=== PATIENT | male | born 1990 | race Caucasian/White ===

== ENCOUNTER 2023-02-11 12:47 | Outpatient (OUT) | payer OTHER, SELFPAY ==
[2023-02-11 13:43] LABS: Hemoglobin 12.5 g/dL (14.0-18.0)
--- NOTE | 2023-02-11 13:55 | CT_ITS ---
[address] [address] Patient Name: KYLE ANTONY MRN: [id number] date: 1990 Sex: M Assigned Patient Location: CARD Current Patient Location: CARD Accession/Order Number: [id number] Exam Date: 02/11/2023 14:00 Report Date: 02/11/2023 15:17 At the request of: NAYAN ARORA Procedure: CT chest wo con EXAMINATION: CT chest wo con HISTORY: Alpha 1 anitirypain deficiency E88.01, Mod. asthma J45.40 , COPD COMPARISON: No relevant comparison available. TECHNIQUE: Multi-planar CT images were obtained without and/or with IV contrast as indicated by examination type. Axial, Coronal, and Sagittal images. Dose reduction techniques were achieved by using automated exposure control and/or adjustment of mA and/or kV according to patient size and/or use of iterative reconstruction technique. FINDINGS: LUNGS: No visible pulmonary disease. PLEURA: Left pleural effusion 3.0 cm in thickness. VASCULATURE: No abnormality. OPAL: No mass or adenopathy. MEDIASTINUM: No mass or adenopathy. CARDIAC: No enlargement, pericardial thickening, or significant calcification. AORTA: No aneurysm or dissection. CHEST WALL: No mass or axillary adenopathy. BONES: No bone lesion or fracture. LIMITED ABDOMEN: Nodular liver margin with moderate amount of adjacent free fluid. Enlarged spleen, 818.0 cm, with adjacent free fluid. Limited images of the upper abdomen. OTHER: Negative. IMPRESSION: 1. No pulmonary infiltrates or significant chronic interstitial changes. 2. Large left pleural effusion 3 cm in thickness. 3. Nodular liver, enlarged spleen, and moderate amount of abdominal ascites; nonspecific but suggestive of cirrhosis and portal hypertension. Electronically authenticated by: KYLE LIMA Date: 02/11/2023 15:17
--- NOTE | 2023-02-11 13:55 | RT_ITS ---
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 Findings were considered accurate and reproducible. No bronchodilator was administered due to normal spirometric values. No prior studies available for comparison. Spirometry: -FEV1/FVC: Normal @ 82% -FEV1: Normal @ 92% -FVC: Normal @ 91% Lung volumes by plethysmography: -RV: Normal @ 100% -TLC: Normal @ 97% Diffusion capacity: -DLCO: Normal @ 93% when corrected for Hb 12.5g/dL Flow-volume loop: -Normal variant 'knee shape' Impressions: -Normal PFT. Clinical correlation required. Electronically Signed On 02-12-2023 14:26:25 EDT by Harrison Burch
== END 2023-02-11 12:48 ==
LOC: CARD 12:51
PROVIDERS: PCP Internal Medicine; Visit Provider Internal Medicine
DX: E88.01 Alpha-1-antitrypsin deficiency (principal); J45.40 Moderate persistent asthma, uncomplicated
CPT/HCPCS: 36415; 71250; 85018; 94010; 94726; 94729

== ENCOUNTER 2023-03-21 13:08 | Outpatient (REF) | payer OTHER, SELFPAY ==
[2023-03-21 13:36] LABS: Adenovirus F 40/41 NOT DETECTED (NOT DETECTE); Astrovirus NOT DETECTED (NOT DETECTE); Campylobacter NOT DETECTED (NOT DETECTE); Cryptosporidium NOT DETECTED (NOT DETECTE); Cyclospora cayetanensis NOT DETECTED (NOT DETECTE); Entamoeba histolytica NOT DETECTED (NOT DETECTE); Enteroaggregative E.coli NOT DETECTED (NOT DETECTE); Enteropathogenic E.coli NOT DETECTED (NOT DETECTE); Enterotoxigenic E. coli NOT DETECTED (NOT DETECTE); Giardia lamblia NOT DETECTED (NOT DETECTE); Norovirus GI/GII NOT DETECTED (NOT DETECTE); Plesiomonas shigelloides NOT DETECTED (NOT DETECTE); Rotavirus A NOT DETECTED (NOT DETECTE); Salmonella NOT DETECTED (NOT DETECTE); Sapovirus NOT DETECTED (NOT DETECTE); Shiga-like toxin-producing E.C NOT DETECTED (NOT DETECTE); Shigella/Enteroinvasive E.coli NOT DETECTED (NOT DETECTE); Vibrio NOT DETECTED (NOT DETECTE); Vibrio cholerae NOT DETECTED (NOT DETECTE); Yersinia enterocolitica NOT DETECTED (NOT DETECTE)
== END 2023-03-21 13:09 | disposition home or self-care (01) ==
LOC: LAB 13:08
PROVIDERS: PCP Internal Medicine
DX: R19.7 Diarrhea, unspecified (principal)
CPT/HCPCS: 87507

== ENCOUNTER 2023-03-21 13:10 | Day surgery (SDC) | payer OTHER, MEDICAID, SELFPAY ==
[2023-03-21] VITALS (8 sets, daily range): BP systolic 107–125; BP diastolic 65–77; PULSE 89; O2SAT 95
--- NOTE | 2023-03-21 13:16 | US_ITS ---
[address] [address] Patient Name: KYLE ANTONY MRN: [id number] date: 1990 Sex: M Assigned Patient Location: US Current Patient Location: Accession/Order Number: [id number] Exam Date: 03/21/2023 13:17 Report Date: 03/21/2023 13:46 At the request of: NON-STAFF PHYSICIAN Procedure: US abdomen limited EXAMINATION: US abdomen limited HISTORY: Alpha 1 Antitrypsin Deficiency E88.01 COMPARISON: No relevant comparison available. TECHNIQUE: High resolution sonographic examination of the abdomen was performed. FINDINGS: Large amount of free fluid within all 4 quadrants of the abdomen, largest is within right lower quadrant, 13.7 cm in depth. US/US abdomen limited IMPRESSION: 1. Marked abdominal ascites. Electronically authenticated by: KYLE LIMA Date: 03/21/2023 13:46
--- NOTE | 2023-03-21 13:16 | US_ITS ---
[address] [address] Patient Name: KYLE ANTONY MRN: [id number] date: 1990 Sex: M Assigned Patient Location: LAB Current Patient Location: Accession/Order Number: [id number] Exam Date: 03/21/2023 13:20 Report Date: 03/21/2023 14:59 At the request of: NON-STAFF PHYSICIAN Procedure: US paracentesis abd w/image EXAMINATION: US paracentesis abd w/image HISTORY: Ascities R18.8 COMPARISON: No relevant comparison available. DESCRIPTION: Informed consent was obtained. The patient was prepped and draped in standard sterile fashion. Ultrasound-guided paracentesis was performed in the usual sterile manner using 1% Xylocaine. FINDINGS: SITE: Right lower quadrant NEEDLE: Paracentesis 8 Fr. catheter over 18 gauge needle MEDICATION: 1% buffered Xylocaine for local anesthesia FLUID DESCRIPTION: Clear yellowish fluid. FLUID VOLUME: 7 L COMPLICATIONS: None LABORATORY: Pending OTHER: Negative. US/US paracentesis abd w/image IMPRESSION: 1. Successful diagnostic paracentesis with removal of 7 L of fluid. 2. Pathology results are pending. Electronically authenticated by: KYLE LIMA Date: 03/21/2023 14:59
[2023-03-21] MEDS: LIDOCAINE HCL 10 ML, SODIUM BICARBONATE 1 MEQ INJ (14:00)
--- NOTE | 2023-03-21 15:55 | PC.NURSE ---
[address] . 1449 Drained 7 liters fluid from abdomen. Pt c/o mild abdominal diffuse tenderness for approx 1 month and continues today. Attempt IV start x 3 without success. 1515 IV started in left hand with 22 ga x 1 attempt per D Costa. Started IV albumin.
[2023-03-22 10:13] LABS: Protein, Body Fluid 1.1 g/dL (.)
[2023-03-22 15:09] LABS: Clarity, Serous Slightly hazy (Clear); Color, Serous Yellow (.); Eosinophils, Serous 0 % (Not Estab.); Lining Cells, Serous 29 % (Not Estab.); Lymphocytes, Serous 25 % (Not Estab.); Macrophages, Serous 36 % (Not Estab.); Neut, Serous 10 % (0-24); Nucleated Cells, Serous 416 /mm3 (0-499); RBC, Serous Rare /uL (Not Estab.)
== END 2023-03-21 15:50 | disposition home or self-care (01) ==
LOC: US 13:10
PROVIDERS: Radiology Diagnostic Radiology; PCP Internal Medicine
DX: R18.8 Other ascites (principal); R19.7 Diarrhea, unspecified
CPT/HCPCS: 36415; 49083; 76705; 82042; 84157; 87070; 87507; 88112; 88305; 89050

== ENCOUNTER 2023-04-04 23:13 | Emergency (ER) | payer OTHER, MEDICAID, SELFPAY ==
[2023-04-04 23:21] VITALS: BP 160/94; PULSE 104; RESP 20; TEMP 37.2; O2SAT 93; BMI 51.7
--- NOTE | 2023-04-04 23:46 | PC.NURSE ---
Color pale past. Lips dry.
--- NOTE | 2023-04-04 23:48 | CT_ITS ---
[address] [address] Patient Name: KYLE ANTONY MRN: [id number] date: 1990 Sex: M Assigned Patient Location: ER Current Patient Location: Accession/Order Number: [id number] Exam Date: 04/04/2023 23:59 Report Date: 04/05/2023 01:39 At the request of: CHANTEL DOMINGUEZ Procedure: CT abdomen pelvis w con EXAMINATION: CT abdomen pelvis w con HISTORY: vomiting, pain, constipation COMPARISON: No relevant comparison available. TECHNIQUE: Axial, Coronal, and Sagittal images were obtained without and/or with IV contrast as indicated by examination type. Dose reduction techniques were achieved by using automated exposure control and/or adjustment of mA and/or kV according to patient size and/or use of iterative reconstruction technique. FINDINGS: LUNG BASES: Mild opacities and stranding within posterior lung bases. Small bilateral pleural effusions. LIVER: Small liver with nodular margins suggestive of cirrhosis. Surrounding free fluid. BILIARY: Cholecystectomy. PANCREAS: No lesion, fluid collection, or abnormal duct dilatation. SPLEEN: Enlarged, 17.8 cm, with surrounding free fluid. ADRENALS: No mass or enlargement. KIDNEYS: No mass, obstruction, or calcification. BOWEL/MESENTERY: No visible mass, obstruction, or bowel wall thickening. AORTA/VASCULAR: No aneurysm or dissection. RETROPERITONEUM: No mass or adenopathy. LYMPH NODES: No adenopathy. URINARY BLADDER: No visible focal wall thickening, lesion, or calculus. PELVIC ORGANS: No visible mass. Pelvic organs appropriate for patient age. ABDOMINAL WALL: Marked edema throughout the abdominal wall and flanks. BONES: Nondisplaced fracture of the ninth and 10th ribs bilaterally. OTHER: Large amount of free fluid throughout the abdomen and pelvis. CT/CT abdomen pelvis w con IMPRESSION: 1.Sclerosis and portal hypertension as evidenced by small nodular liver, enlarged spleen, marked abdominal ascites, and marked subcutaneous edema. 2.Acute to early subacute nondisplaced fractures of the ninth and 10th ribs bilaterally. Electronically authenticated by: KYLE LIMA Date: 04/05/2023 01:39
--- NOTE | 2023-04-04 23:49 | PC.NURSE ---
Ascites to abdomen.
[2023-04-04 23:57] LABS: Hematocrit 39.2 % (42.0-54.0); Hemoglobin 13.7 g/dL (14.0-18.0); Mean Corpuscular HGB Conc 34.9 g/dL (29.9-35.2); Mean Corpuscular Hemoglobin 32.9 pg (25.9-34.0); Mean Corpuscular Volume 94.2 fL (80.0-94.0); Mean Platelet Volume 10.5 fL (9.5-13.5); Platelet Count 184 10^3/uL (150-450); Red Blood Count 4.16 10^6/uL (4.70-6.10); Red Cell Distribution Width 16.1 % (11.0-15.0); White Blood Count 14.4 10^3/uL (4.0-11.0)
[2023-04-05 00:11] LABS: Alanine Aminotransferase 51 U/L (16-63); Albumin Globulin Ratio 0.4; Alkaline Phosphatase 141 U/L (46-116); Anion Gap 9.6; Aspartate Amino Transferase 108 U/L (15-37); BUN Creatinine Ratio 9.5; Bilirubin Total 2.6 mg/dL (0.2-1.0); Calcium 7.4 mg/dL (8.5-10.1); Carbon Dioxide 27.3 mmol/L (21.0-32.0); Chloride 97 mmol/L (98-107); Estimated GFR (African America >60 (>=60); Estimated GFR (Non-African Ame >60 (>=60); Globulin 5.4 g/dL; Glucose 125 mg/dL (74-106); Sodium 131 mmol/L (136-145); Total Protein 7.4 g/dL (6.4-8.2); Troponin I High Sensitivity 5.7 pg/mL (4.0-76.1)
[2023-04-05 00:12] LABS: Potassium 2.9 mmol/L (3.5-5.1)
[2023-04-05 00:15] LABS: Atypical Lymphocytes Abs Man 0.3; Eosinophils Absolute Manual 0.72 10^3/uL (0.00-0.70); Lymphocytes Absolute Manual 0.72 10^3/uL (1.20-3.80); Monocytes Absolute Manual 0.57 10^3/uL (0.30-0.80); Segmented Neut Absolute Manual 12.09 10^3/uL (1.4-6.5)
[2023-04-05] MEDS: ONDANSETRON PF 4 MG/2 ML VIAL IV (00:19)
[2023-04-05] MEDS: MORPHINE SULFATE 2 MG/ML SYRINGE 4 MG IV (00:19)
[2023-04-05] MEDS: 0.9 % SODIUM CHLORIDE 1,000 ML 1000 ML IV (00:23)
[2023-04-05 00:56] VITALS: BP 126/70; PULSE 108; RESP 20; O2SAT 88
[2023-04-05] MEDS: POTASSIUM CHLORIDE 10 MEQ IN WATER 100 ML PIGGYBACK IV (01:19)
--- NOTE | 2023-04-05 01:48 | ED.GENADUL1 ---
HPI - General Adult General Chief complaint: Nausea/Vomiting/Diarrhea Stated complaint: SEVERE NAUSEA/STOMACH PAIN Time Seen by Provider: 04/04/23 23:22 Source: patient Mode of arrival: Wheelchair Limitations: no limitations History of Present Illness HPI narrative: 32-year-old male to the emergency department with chief complaint of sudden onset of nausea, vomiting, diarrhea tonight. Patient reports he is feeling as though he is constipated over the last few days. Need to take some over the counter medication for this. Four sitting and have some cramping abdominal pain and experienced sudden nausea and vomiting. Four diarrheal bowel movement before this. Denies any fever, sweats, chills. 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 He follows with gastroenterology at [facility] for this. He reports a history of ascites for which she gets paracentesis every two weeks. He denies any chest pain or shortness of breath. Eating and drinking prior to the episode today. No medications or therapies attempted at home. Currently being treated for Cdiff with oral vancomycin. Related Data Home Medications Medication Instructions Recorded Confirmed atenolol 50 mg tablet 50 mg PO DAILY 03/19/23 04/04/23 brimonidine 1 drp ophthalmic (eye) BID 03/19/23 03/21/23 cetirizine 10 mg capsule (Zyrtec) 10 mg PO DAILY 03/19/23 04/04/23 cholecalciferol (vitamin D3) 25 25 mcg PO DAILY 03/19/23 03/21/23 mcg (1,000 unit) capsule citalopram 20 mg tablet 20 mg PO DAILY 03/19/23 04/04/23 fluticasone 250 mcg-salmeterol 50 1 inh inhalation BID 03/19/23 04/04/23 mcg/dose blistr powdr for inhalation (Advair Diskus) fluticasone propionate 50 2 spray intranasal DAILY 03/19/23 04/04/23 mcg/actuation nasal spray,suspension furosemide 20 mg tablet (Lasix) 20 mg PO DAILY 03/19/23 04/04/23 latanoprostene bunod 0.024 % eye 1 drp ophthalmic (eye) QPM 03/19/23 04/04/23 drops montelukast 10 mg tablet 10 mg PO DAILY 03/19/23 04/04/23 (Singulair) omeprazole 20 mg tablet,delayed 20 mg PO DAILY 03/19/23 04/04/23 release brimonidine 0.2 % eye drops drp ophthalmic (eye) 04/04/23 vancomycin 125 mg capsule 125 mg PO QID 04/04/23 04/04/23 Previous Rx's Medication Instructions Recorded ondansetron 4 mg disintegrating 4 mg PO Q8H PRN nausea and 04/05/23 tablet vomiting 4 days #16 tabs oxycodone 5 mg capsule 5 mg PO Q8H PRN pain 3 days #9 caps 04/05/23 potassium chloride 20 mEq oral 20 meq PO DAILY 5 days #5 ea 04/05/23 packet (Klor-Con) Allergies Allergy/AdvReac Type Severity Reaction Status Date / Time No Known Drug Allergies Allergy Verified 04/04/23 23:20 Review of Systems ROS Status of ROS 10 or more systems reviewed and unremarkable except as noted in history and below [facility] Medical History Surgical History Social History Smoking status: Never smoker Exam Narrative Exam Narrative: VITALS: I have reviewed the triage vital signs. GENERAL: Morbidly obese adult male vomiting. Father at the bedside. NEURO: Alert and oriented. Moves all extremities. Face is symmetric and expressive. EYES: PERRL. No scleral icterus or conjunctival injection. No discharge. HENT: Normocephalic, atraumatic. Hearing is grossly intact. Nares grossly patent and without discharge. Mucous membranes moist. NECK: No JVD. Patient moves neck without restriction. CARDIO: Rhythm regular. Normal rate. No murmur, rub, or gallop. Pulses equal bilaterally in the upper and lower extremity. No lower extremity edema. PULM: Lungs clear to auscultation in all caro. No wheezes, rales, or rhonchi. No conversational dyspnea. No splinting, stridor, or accessory muscle use. GI/: Abdomen is soft and non-tender. Normoactive bowel sounds. EXTREMITIES: Symmetric muscle bulk. No joint swelling. No clubbing, cyanosis, or deformity. SKIN: Warm and dry. Normal turgor. No rash or lesions appreciated. PSYCH: Mood, affect, and interaction is appropriate to the setting. Constitutional Vital Signs, click to edit/add: Last Vital Signs Temp 98.9 F 04/04/23 23:21 Pulse 108 H 04/05/23 00:56 Resp 20 04/05/23 00:56 BP 126/70 04/05/23 00:56 Pulse Ox 88 L 04/05/23 00:56 O2 Del Method Room Air 04/05/23 00:56 Course Vital Signs Vital signs: Vital Signs Temperature 98.9 F 04/04/23 23:21 Pulse Rate 104 H 04/04/23 23:21 Respiratory Rate 04/04/23 23:21 Blood Pressure 160/94 H 04/04/23 23:21 Pulse Oximetry 93 L 04/04/23 23:21 Oxygen Delivery Method Room Air 04/04/23 23:21 Temperature 98.9 F 04/04/23 23:21 Pulse Rate 108 H 04/05/23 00:56 Respiratory Rate 04/05/23 00:56 Blood Pressure 126/70 04/05/23 00:56 Pulse Oximetry 88 L 04/05/23 00:56 Oxygen Delivery Method Room Air 04/05/23 00:56 Medical Decision Making MDM Narrative Medical decision making narrative: MDM Data External documents reviewed: Not applicable My EKG interpretation: Not applicable My CT interpretation: As below My X-ray interpretation: Not applicable My Ultrasound interpretation: Not applicable Decision rules/scores evaluated: Not applicable Discussed with: Not applicable Treatment and Disposition ED Course: 32-year-old male to the emergency department plan of abdominal pain, nausea, vomiting that began suddenly tonight. Tachycardic, otherwise stable vitals. Patient is afebrile. Abdominal examination is benign, No signs of peritonitis. Basic labs, lipase are ordered. We'll obtain a CT scan of his abdomen and pelvis to evaluate for obstruction, acute surgical process. Zofran and fluids are ordered. Patient agrees with this plan. Liver reviewed and noted. He has a mild leukocytosis. He has a mild hyponatremia as well as hypokalemia. Potassium is ordered for acute IV replacement. His lipase is within normal limits effectively ruling out pancreatitis. Some mild elevation of his liver enzymes which appears consistent with his history of cirrhosis. CT scan demonstrates his known cirrhotic liver, abdominal ascites.There is noted acute early subacute nondisplaced fractures of the 9th and 10th ribs bilaterally and the CT imaging. This does not appear to correlate clinically with the patients symptoms. Patient able to tolerate POs. He was placed on oxygen while sleeping in the ED, was easily weaned off when up. Ambulatory pulse-ox normal. Discussed findings with the patient. His vitals are normal. His abdomen remains benign. He is appropriate for discharge. Zofran, Oxycodone, Potassium are prescribed. Return precautions are discussed. All questions answered. Patient was discharged home. Shared decision making: As above Code status: Not addressed during this visit Medical Records Medical records reviewed: Yes I reviewed the patient's medical records Lab Data Lab results reviewed: Yes I reviewed the patient's lab results Labs: Lab Results 04/04/23 Range/Units 23:30 WBC 14.4 H (4.0-11.0) 10^3/uL RBC 4.16 L (4.70-6.10) 10^6/uL Hgb 13.7 L (14.0-18.0) g/dL Hct 39.2 L (42.0-54.0) % MCV 94.2 H (80.0-94.0) fL MCH 32.9 (25.9-34.0) pg MCHC 34.9 (29.9-35.2) g/dL RDW 16.1 H (11.0-15.0) % Plt Count 184 (150-450) 10^3/uL MPV 10.5 (9.5-13.5) fL Seg Neuts % (Manual) 84.0 Lymphocytes % (Manual) 5.0 L (20.5-60.0) % Atypical Lymphs % (Man) 2.0 % Monocytes % (Manual) 4.0 (1.7-12.0) % Eosinophils % (Manual) 5.0 (0.9-7.0) % Basophils % (Manual) 0.0 L (0.2-2.0) % Neutrophils # (Manual) 12.09 H (1.4-6.5) 10^3/uL Lymphocytes # (Manual) 0.72 L (1.20-3.80) 10^3/uL Abs Atypical Lymphs Man 0.3 Monocytes # (Manual) 0.57 (0.30-0.80) 10^3/uL Eosinophils # (Manual) 0.72 H (0.00-0.70) 10^3/uL Basophils # (Manual) 0.00 (0.00-0.10) 10^3/uL Sodium 131 L (136-145) mmol/L Potassium 2.9 L* (3.5-5.1) mmol/L Chloride 97 L (98-107) mmol/L Carbon Dioxide 27.3 (21.0-32.0) mmol/L Anion Gap 9.6 BUN 7.0 (7.0-18.0) mg/dL Creatinine 0.74 (0.70-1.30) mg/dL Est GFR ( Amer) >60 (>=60) Est GFR (Non-Af Amer) >60 (>=60) BUN/Creatinine Ratio 9.5 Glucose 125 H (74-106) mg/dL Calcium 7.4 L (8.5-10.1) mg/dL Total Bilirubin 2.6 H (0.2-1.0) mg/dL AST 108 H (15-37) U/L ALT 51 (16-63) U/L Alkaline Phosphatase 141 H (46-116) U/L Troponin I High Sens 5.7 (4.0-76.1) pg/mL Total Protein 7.4 (6.4-8.2) g/dL Albumin 2.0 L (3.4-5.0) g/dL Globulin 5.4 g/dL Albumin/Globulin Ratio 0.4 Lipase 179.0 (73.0-393.0) U/L Discharge Plan Discharge Chief Complaint: Nausea/Vomiting/Diarrhea Clinical Impression: Fracture of rib, Vomiting, Acute hypokalemia Patient Disposition: Home, Self-Care Time of Disposition Decision: 05:46 Condition: Good Mode of Transportation: Private Vehicle Prescriptions / Home Meds: New ondansetron 4 mg tablet,disintegrating 4 mg PO Q8H PRN (Reason: nausea and vomiting) 4 Days Qty: 16 0RF oxycodone 5 mg capsule 5 mg PO Q8H MDD 3 caps PRN (Reason: pain) 3 Days Qty: 9 0RF potassium chloride [Klor-Con] 20 mEq packet 20 meq PO DAILY 5 Days Qty: 5 0RF No Action brimonidine 0.2 % drops OPHTHALMIC (EYE) vancomycin 125 mg capsule 125 mg PO QID fluticasone propion-salmeterol [Advair Diskus] 250-50 mcg/dose blister with device 1 inh inhalation BID atenolol 50 mg tablet 50 mg PO DAILY brimonidine 1 drp ophthalmic (eye) BID Patient Comments: ou citalopram 20 mg tablet 20 mg PO DAILY fluticasone propionate 50 mcg/actuation spray,suspension 2 spray intranasal DAILY Rx Instructions: administer into each nostril latanoprostene bunod 0.024 % drops 1 drp ophthalmic (eye) QPM Patient Comments: ou omeprazole 20 mg tablet,delayed release (DR/EC) 20 mg PO DAILY cholecalciferol (vitamin D3) 25 mcg (1,000 unit) capsule 25 mcg PO DAILY Zyrtec 10 mg capsule 10 mg PO DAILY montelukast [Singulair] 10 mg tablet 10 mg PO DAILY furosemide [Lasix] 20 mg tablet 20 mg PO DAILY Instructions: Hypokalemia (ED), Acute Nausea and Vomiting (DC), Acute Abdominal Pain (ED) Stand Alone Forms: Portal Instructions Referrals: SHELLY MONTIEL [Primary Care Provider] - 1 week
[2023-04-05] MEDS: OXYCODONE HCL 5 MG TABLET PO (06:00)
== END 2023-04-05 06:19 | disposition home or self-care (01) ==
PROVIDERS: Emergency Provider Student in an Organized Health Care Education/Training Program; PCP Internal Medicine
DX: E87.1 Hypo-osmolality and hyponatremia (principal); R11.10 Vomiting, unspecified; S22.43XA Multiple fractures of ribs, bilateral, initial encounter for closed fracture; E88.01 Alpha-1-antitrypsin deficiency; K74.60 Unspecified cirrhosis of liver; Z79.899 Other long term (current) drug therapy; E66.01 Morbid (severe) obesity due to excess calories; E87.6 Hypokalemia; R18.8 Other ascites; Z68.43 Body mass index [BMI] 50.0-59.9, adult
CPT/HCPCS: 36415; 74177; 80053; 83690; 84484; 85027; 96374; 96375; 99285; Q9967

== ENCOUNTER 2023-04-08 09:05 | Day surgery (SDC) | payer OTHER, MEDICAID, SELFPAY ==
[2023-04-08] VITALS (14 sets, daily range): BP systolic 120–136; BP diastolic 65–90; PULSE 110; O2SAT 91
--- NOTE | 2023-04-08 09:20 | US_ITS ---
[address] [address] Patient Name: KYLE ANTONY MRN: [id number] date: 1990 Sex: M Assigned Patient Location: US Current Patient Location: US Accession/Order Number: [id number] Exam Date: 04/08/2023 09:45 Report Date: 04/08/2023 12:27 At the request of: NON-STAFF PHYSICIAN Procedure: US paracentesis abd w/image EXAMINATION: US paracentesis abd w/image HISTORY: Ascites R18.8 COMPARISON: No relevant comparison available. DESCRIPTION: Informed consent was obtained. The patient was prepped and draped in standard sterile fashion. Ultrasound-guided paracentesis was performed in the usual sterile manner using 1% Xylocaine. FINDINGS: SITE: Left lower quadrant NEEDLE: Paracentesis 8 Fr. catheter over 18 gauge needle MEDICATION: 1% buffered Xylocaine for local anesthesia FLUID DESCRIPTION: Yellowish, clear fluid. FLUID VOLUME: 9.7 L COMPLICATIONS: None. LABORATORY: None; therapeutic. OTHER: Negative. US/US paracentesis abd w/image IMPRESSION: 1. Successful paracentesis with removal of 9.7 L of slightly yellowish fluid. Electronically authenticated by: KYLE LIMA Date: 04/08/2023 12:27
[2023-04-08] MEDS: LIDOCAINE HCL 10 ML, SODIUM BICARBONATE 1 MEQ INJ (10:25)
[2023-04-08] MEDS: ALBUMIN 25% PREMIX VIAL 25 GM/100 ML IV (11:30)
--- NOTE | 2023-04-08 16:21 | PC.NURSE ---
[address] and cloudy allyson fluid noted. 1120 Attempted IV start x 2 without success. Geovanny called to attempt IV. Successful IV 22 ga in right AC x 1 attempt. Started IV Albumin. 1140 Removal of fluid completed for total of 9.7 liters. Pt tolerated well. Paracentesis catheter removed and pressure held to site for 4 minutes. 1145 Pt noted fluid leaking from procedure incision. Pressure applied for 10 minutes without any change in leakage. Pt instructed to lay down on right side. Dressing applied of 2 ABD pads. pt remained this way for 15 minutes. 1215 Assessed incision and it continued to leak. Applied 8 4x4 gauze between skin and ABD to make a pressure dressing. Pt instructed on how to manage this if it continues to leak in d/c instructions. 1220 Pt going up to [place] to visit his mom and instructed to return to department if any furthur problems while in the hospital visiting.
== END 2023-04-08 12:30 | disposition home or self-care (01) ==
PROVIDERS: Radiology Diagnostic Radiology; PCP Internal Medicine
DX: R18.8 Other ascites (principal)
CPT/HCPCS: 49083; P9047

== ENCOUNTER 2023-04-23 08:16 | Day surgery (SDC) | payer OTHER, MEDICAID, SELFPAY ==
[2023-04-23] VITALS (14 sets, daily range): BP systolic 99–109; BP diastolic 49–74; PULSE 89; O2SAT 94; BMI 49.2
--- NOTE | 2023-04-23 08:19 | US_ITS ---
[address] [address] Patient Name: KYLE ANTONY MRN: [id number] date: 1990 Sex: M Assigned Patient Location: Current Patient Location: Accession/Order Number: [id number] Exam Date: 04/23/2023 09:00 Report Date: 04/23/2023 11:50 At the request of: NON-STAFF PHYSICIAN Procedure: US paracentesis abd w/image EXAMINATION: US paracentesis abd w/image HISTORY: Ascities R18.8 COMPARISON: No relevant comparison available. DESCRIPTION: Informed consent was obtained. The patient was prepped and draped in standard sterile fashion. Ultrasound-guided paracentesis was performed in the usual sterile manner using 1% Xylocaine. FINDINGS: SITE: Right lower quadrant NEEDLE: Paracentesis 8 Fr. catheter over 18 gauge needle. First attempt was unsuccessful with no fluid obtained. Second attempt resulted in fluid with subsequent blockage of the catheter. Reinsertion of a new catheter through the second site was successful. MEDICATION: 25 cc 1% buffered lidocaine for local anesthesia FLUID DESCRIPTION: Medium yellow, clear FLUID VOLUME: 11.2 L COMPLICATIONS: None LABORATORY: None OTHER: Negative. US/US paracentesis abd w/image IMPRESSION: Technically successful ultrasound-guided therapeutic abdominal paracentesis Electronically authenticated by: HANS SMITH Date: 04/23/2023 11:50
[2023-04-23] MEDS: ALBUMIN HUMAN 50 GM/200 ML PREMIX IV (10:00)
[2023-04-23] MEDS: LIDOCAINE HCL 20 ML, SODIUM BICARBONATE 2 MEQ INJ (10:00)
--- NOTE | 2023-04-23 11:53 | PC.NURSE ---
[address] with clear allyson fluid noted. 1100 Done draining fluid and waiting for Dr Yuen to arrive to d/c catheter. Total of 11.2 liters removed. 1125 IV d/c after albumin completed.
== END 2023-04-23 11:30 | disposition home or self-care (01) ==
LOC: US 08:16
PROVIDERS: Radiology Diagnostic Radiology; PCP Internal Medicine
DX: R18.8 Other ascites (principal)
CPT/HCPCS: 49083; P9047

== ENCOUNTER 2023-05-01 11:29 | Outpatient (OUT) | payer OTHER, SELFPAY ==
[2023-05-01 12:10] LABS: Basophils Absolute Auto 0.1 10^3/uL (0.0-0.1); Basophils Percent Auto 0.6 % (0.2-2.0); Eosinophils Absolute Auto 0.3 10^3/uL (0.0-0.7); Eosinophils Percent Auto 2.3 % (0.9-7.0); Hematocrit 36.7 % (42.0-54.0); Hemoglobin 12.3 g/dL (14.0-18.0); Immature Granulocytes Abs Auto 0.12 10^3/uL (0.00-0.03); Immature Granulocytes Pct Auto 1.1 % (0.0-0.5); Lymphocytes Absolute Auto 1.9 10^3/uL (1.2-3.8); Lymphocytes Percent Auto 16.8 % (20.5-60.0); Mean Corpuscular HGB Conc 33.5 g/dL (29.9-35.2); Mean Corpuscular Hemoglobin 32.9 pg (25.9-34.0); Mean Corpuscular Volume 98.1 fL (80.0-94.0); Mean Platelet Volume 9.8 fL (9.5-13.5); Monocytes Absolute Auto 1.3 10^3/uL (0.3-0.8); Monocytes Percent Auto 11.6 % (1.7-12.0); Neutrophils Absolute Auto 7.5 10^3/uL (1.4-6.5); Neutrophils Percent Auto 67.6 % (43.0-75.0); Platelet Count 166 10^3/uL (150-450); Red Blood Count 3.74 10^6/uL (4.70-6.10); Red Cell Distribution Width 16.7 % (11.0-15.0); White Blood Count 11.1 10^3/uL (4.0-11.0)
[2023-05-01 12:23] LABS: INR 1.51; Prothrombin Time 15.6 sec (9.0-11.6)
[2023-05-01 12:52] LABS: Alanine Aminotransferase 56 U/L (16-63); Albumin Globulin Ratio 0.4; Albumin Level 1.9 g/dL (3.4-5.0); Alkaline Phosphatase 115 U/L (46-116); Anion Gap 7.1; Aspartate Amino Transferase 104 U/L (15-37); BUN Creatinine Ratio 4.9; Bilirubin Total 2.4 mg/dL (0.2-1.0); Calcium 7.3 mg/dL (8.5-10.1); Carbon Dioxide 29.8 mmol/L (21.0-32.0); Chloride 103 mmol/L (98-107); Estimated GFR (African America >60 (>=60); Estimated GFR (Non-African Ame >60 (>=60); Globulin 5.1 g/dL; Glucose 109 mg/dL (74-106); Potassium 3.9 mmol/L (3.5-5.1); Sodium 136 mmol/L (136-145)
[2023-05-01 14:42] LABS: Bilirubin Direct 1.2 mg/dL (0.0-0.2)
== END 2023-05-01 11:30 | disposition home or self-care (01) ==
LOC: LAB 11:30
PROVIDERS: PCP Internal Medicine
DX: R18.8 Other ascites (principal); K74.69 Other cirrhosis of liver; E88.09 Other disorders of plasma-protein metabolism, not elsewhere classified
CPT/HCPCS: 36415; 80048; 80076; 85025; 85610; 85730

== ENCOUNTER 2023-05-07 08:17 | Day surgery (SDC) | payer OTHER, SELFPAY ==
[2023-05-07] VITALS (10 sets, daily range): BP systolic 102–123; BP diastolic 55–73; PULSE 72; O2SAT 90
--- NOTE | 2023-05-07 08:21 | US_ITS ---
[address] [address] Patient Name: KYLE ANTONY MRN: [id number] date: 1990 Sex: M Assigned Patient Location: Current Patient Location: Accession/Order Number: [id number] Exam Date: 05/07/2023 08:45 Report Date: 05/07/2023 11:28 At the request of: NON-STAFF PHYSICIAN Procedure: US paracentesis abd w/image EXAMINATION: US paracentesis abd w/image HISTORY: Ascites COMPARISON: No relevant comparison available. DESCRIPTION: Informed consent was obtained. The patient was prepped and draped in standard sterile fashion. Ultrasound-guided paracentesis was performed in the usual sterile manner using 1% Xylocaine. FINDINGS: SITE: Left lower quadrant NEEDLE: Paracentesis 8 Fr. catheter over 18 gauge needle MEDICATION: 10 cc 1% buffered cocaine for local anesthesia FLUID DESCRIPTION: Medial mid yellow clear fluid FLUID VOLUME: 6.8 L COMPLICATIONS: None LABORATORY: None OTHER: Negative. US/US paracentesis abd w/image IMPRESSION: Technically successful therapeutic paracentesis Electronically authenticated by: HANS SMITH Date: 05/07/2023 11:28
[2023-05-07] MEDS: LIDOCAINE HCL 10 ML, SODIUM BICARBONATE 1 MEQ INJ (09:35)
[2023-05-07] MEDS: ALBUMIN HUMAN 25 GM/100 ML PREMIX IV (09:55)
--- NOTE | 2023-05-07 11:09 | PC.NURSE ---
[address] and clear yellow fluid noted. Enc pt to discuss with Dr about a surgical port placement for home removal of fluid and BUN elevated on last labs. 1015 Paracentesis catheter ceased to drain for total of 6.8 L removed. Pressure applied for 3 minutes and then vaseline gauze and large tegaderm dressing applied.
== END 2023-05-07 10:40 | disposition home or self-care (01) ==
LOC: US 08:17
PROVIDERS: Radiology Diagnostic Radiology; PCP Internal Medicine
DX: R18.8 Other ascites (principal)
CPT/HCPCS: 49083; P9047

== ENCOUNTER 2023-05-18 16:21 | Emergency (ER) | payer OTHER, SELFPAY ==
[2023-05-18 16:25] VITALS: BP 140/98; PULSE 127; RESP 20; TEMP 37; O2SAT 90; BMI 48.1
--- NOTE | 2023-05-18 16:43 | XR_ITS ---
The [address] [address] Patient Name: KYLE ANTONY MRN: [id number] date: 1990 Sex: M Assigned Patient Location: ER Current Patient Location: ER Accession/Order Number: [id number] Exam Date: 05/18/2023 16:48 Report Date: 05/18/2023 17:11 At the request of: VIVIAN BUSTILLOS Procedure: XR chest 1V EXAMINATION: XR chest 1V HISTORY: Cough COMPARISON: Chest x-rays 04/02/2022, and abdomen and pelvic CT 04/05/2023 TECHNIQUE: Portable chest FINDINGS: IMPRESSION: Poorly evaluated smooth marginated soft tissue density of the right hemithorax which may represent eventration of the hemidiaphragm secondary to patient's known history of ascites. Right-sided volume loss. The left hemithorax is unremarkable. No pneumothorax or pleural effusion. The cardiac, mediastinal and hilar contours are normal. The visualized osseous structures exhibit no gross abnormality. Electronically authenticated by: HANS NELSON Date: 05/18/2023 17:11
--- NOTE | 2023-05-18 16:44 | ED.URI1 ---
HPI - URI/Sore Throat General Chief Complaint: Upper Respiratory Infection Stated Complaint: COUGH Time Seen by Provider: 05/18/23 16:39 Source: patient History of Present Illness HPI Narrative: 33-year-old male presents for cough. He's been coughing up yellow phlegm for about three days. No hemoptysis or fever. He has a history of alpha one antitrypsin deficiency. He has not had fever or vomiting. Related Data Home Medications Medication Instructions Recorded Confirmed atenolol 50 mg tablet 50 mg PO DAILY 03/19/23 05/18/23 brimonidine 1 drp ophthalmic (eye) BID 03/19/23 05/18/23 cetirizine 10 mg capsule (Zyrtec) 10 mg PO DAILY 03/19/23 05/18/23 cholecalciferol (vitamin D3) 25 25 mcg PO DAILY 03/19/23 05/18/23 mcg (1,000 unit) capsule citalopram 20 mg tablet 20 mg PO DAILY 03/19/23 05/18/23 fluticasone 250 mcg-salmeterol 50 1 inh inhalation BID 03/19/23 05/18/23 mcg/dose blistr powdr for inhalation (Advair Diskus) fluticasone propionate 50 2 spray intranasal DAILY 03/19/23 05/18/23 mcg/actuation nasal spray,suspension latanoprostene bunod 0.024 % eye 1 drp ophthalmic (eye) QPM 03/19/23 05/18/23 drops montelukast 10 mg tablet 10 mg PO DAILY 03/19/23 05/18/23 (Singulair) omeprazole 20 mg tablet,delayed 20 mg PO DAILY 03/19/23 05/18/23 release spironolactone 50 mg PO DAILY 04/23/23 05/18/23 bumetanide 1 mg tablet 1 mg PO DAILY 05/18/23 05/18/23 Previous Rx's Medication Instructions Recorded ondansetron 4 mg disintegrating 4 mg PO Q8H PRN nausea and 04/05/23 tablet vomiting 4 days #16 tabs oxycodone 5 mg capsule 5 mg PO Q8H PRN pain 3 days #9 caps 04/05/23 Allergies Allergy/AdvReac Type Severity Reaction Status Date / Time No Known Drug Allergies Allergy Verified 05/18/23 16:31 Review of Systems ROS Narrative A ten point review of systems is negative except as noted above. [facility] Medical History (Updated 05/18/23 @ 18:57 by Sarwat Matthews MD) Surgical History (Updated 05/05/23 @ 09:00 by Steff Ramsey) Social History Smoking status: Never smoker Exam Narrative Exam Narrative: Nurses note and vital signs reviewed and patient is not hypoxic. General: The patient appears well and in no apparent distress. Patient is resting comfortably on cart. Skin: Warm, dry, no pallor noted. There is no rash noted. Head: Normocephalic, atraumatic Eye: Normal conjunctiva, no drainage Ears, Nose, Mouth, and Throat: oral mucosa is moist. Nares patent. Cardiovascular: Regular Rate and Rhythm Respiratory: Patient is in no distress, no accessory muscle use, lungs are clear to auscultation, no wheezing, rales or rhonchi Back: non-tender GI: recent nontender Musculoskeletal: The patient has no evidence of calf tenderness, no pitting edema, symmetrical pulses noted bilaterally Neurological: A&O, normal speech Psychiatric: Cooperative Constitutional Vital Signs, click to edit/add: Last Vital Signs Temp 98.6 F 05/18/23 16:25 Pulse 110 H 05/18/23 17:40 Resp 05/18/23 17:40 BP 140/98 H 05/18/23 16:25 Pulse Ox 90 L 05/18/23 17:40 O2 Del Method Room Air 05/18/23 16:40 Course Vital Signs Vital signs: Vital Signs Temperature 98.6 F 05/18/23 16:25 Pulse Rate 127 H 05/18/23 16:25 Respiratory Rate 20 05/18/23 16:25 Blood Pressure 140/98 H 05/18/23 16:25 Pulse Oximetry 90 L 05/18/23 16:25 Oxygen Delivery Method Room Air 05/18/23 16:25 Temperature 98.6 F 05/18/23 16:25 Pulse Rate 110 H 05/18/23 17:40 Respiratory Rate 20 05/18/23 17:40 Blood Pressure 140/98 H 05/18/23 16:25 Pulse Oximetry 90 L 05/18/23 17:40 Oxygen Delivery Method Room Air 05/18/23 16:40 MDM - URI/Sore Throat MDM Narrative Medical decision making narrative: tests that were ordered and the patient is signed out to Dr. Bryant. Differential Diagnosis Differential diagnosis: Likely viral infection, bronchitis and other (pneumonia, pleural effusion) Lab Data Attestation: I reviewed the patient's lab results. Labs: Lab Results 05/18/23 05/18/23 Range/Units 16:30 17:30 WBC 15.9 H (4.0-11.0) 10^3/uL RBC 3.75 L (4.70-6.10) 10^6/uL Hgb 12.5 L (14.0-18.0) g/dL Hct 36.5 L (42.0-54.0) % MCV 97.3 H (80.0-94.0) fL MCH 33.3 (25.9-34.0) pg MCHC 34.2 (29.9-35.2) g/dL RDW 16.5 H (11.0-15.0) % Plt Count 189 (150-450) 10^3/uL MPV 9.7 (9.5-13.5) fL Neut % (Auto) 70.3 (43.0-75.0) % Lymph % (Auto) 14.4 L (20.5-60.0) % [place] % (Auto) 11.4 (1.7-12.0) % Eos % (Auto) 1.5 (0.9-7.0) % Baso % (Auto) 0.4 (0.2-2.0) % Neut # (Auto) 11.1 H (1.4-6.5) 10^3/uL Lymph # (Auto) 2.3 (1.2-3.8) 10^3/uL [place] # (Auto) 1.8 H (0.3-0.8) 10^3/uL Eos # (Auto) 0.2 (0.0-0.7) 10^3/uL Baso # (Auto) 0.1 (0.0-0.1) 10^3/uL Abs Immat Gran (auto) 0.32 H (0.00-0.03) 10^3/uL Imm/Tot Granulo (auto) 2.0 H (0.0-0.5) % Sodium 129 L (136-145) mmol/L Potassium 3.3 L (3.5-5.1) mmol/L Chloride 95 L (98-107) mmol/L Carbon Dioxide 31.6 (21.0-32.0) mmol/L Anion Gap 5.7 BUN 7.0 (7.0-18.0) mg/dL Creatinine 0.69 L (0.70-1.30) mg/dL Est GFR ( Amer) >60 (>=60) Est GFR (Non-Af Amer) >60 (>=60) BUN/Creatinine Ratio 10.1 Glucose 97 (74-106) mg/dL Calcium 7.5 L (8.5-10.1) mg/dL SARS-CoV-2 (PCR) Negative (NEGATIVE) Discharge Plan Discharge Chief Complaint: Upper Respiratory Infection Clinical Impression: Dyspnea Patient Disposition: Still a Patient Prescriptions / Home Meds: No Action ondansetron 4 mg tablet,disintegrating 4 mg PO Q8H PRN (Reason: nausea and vomiting) 4 Days Qty: 16 0RF oxycodone 5 mg capsule 5 mg PO Q8H MDD 3 caps PRN (Reason: pain) 3 Days Qty: 9 0RF bumetanide 1 mg tablet 1 mg PO DAILY fluticasone propion-salmeterol [Advair Diskus] 250-50 mcg/dose blister with device 1 inh inhalation BID atenolol 50 mg tablet 50 mg PO DAILY Patient Comments: has been holding due to low blood pressure brimonidine 1 drp ophthalmic (eye) BID Patient Comments: ou citalopram 20 mg tablet 20 mg PO DAILY fluticasone propionate 50 mcg/actuation spray,suspension 2 spray intranasal DAILY Rx Instructions: administer into each nostril latanoprostene bunod 0.024 % drops 1 drp ophthalmic (eye) QPM Patient Comments: ou omeprazole 20 mg tablet,delayed release (DR/EC) 20 mg PO DAILY cholecalciferol (vitamin D3) 25 mcg (1,000 unit) capsule 25 mcg PO DAILY Zyrtec 10 mg capsule 10 mg PO DAILY montelukast [Singulair] 10 mg tablet 10 mg PO DAILY spironolactone 50 mg PO DAILY Referrals: SHELLY MONTIEL [Primary Care Provider] - 1 week
[2023-05-18 16:52] LABS: SARS-CoV-2 Ag NEGATIVE (NEGATIVE)
--- NOTE | 2023-05-18 17:19 | CT_ITS ---
The [address] [address] Patient Name: KYLE ANTONY MRN: [id number] date: 1990 Sex: M Assigned Patient Location: ER Current Patient Location: ER Accession/Order Number: [id number] Exam Date: 05/18/2023 17:48 Report Date: 05/18/2023 18:32 At the request of: VIVIAN BUSTILLOS Procedure: CT chest w con EXAMINATION:CT chest w con INDICATION:abnormal chest x-ray COMPARISON:Chest x-ray from the same day. Chest CT dated 02/11/2023. TECHNIQUE:Thin section transaxial slices were acquired through the chest. Coronal and sagittal reconstructed images were reviewed. IV CONTRAST:With FINDINGS: LUNGS: Atelectatic changes are present in the right lung related to a very large pleural effusion. Minimal dependent changes are present in the lingula and left lower lobe. No acute airspace disease is present that would suggest an infectious process. PLEURAL CAVITY: There is a large right pleural effusion. Fluid traverses along the fissures in the right hemithorax. There is a small left pleural effusion. MEDIASTINUM: Trachea and central airways are patent. HEART: The heart is unremarkable. VASCULAR:There is no aneurysm dissection of the thoracic aorta. LYMPH NODES:No suspicious lymphadenopathy. CHEST WALL/AXILLA: There is mild bilateral gynecomastia. BONES: There are subacute/chronic fractures in the left lower lateral ribs. VISUALIZED UPPER ABDOMEN: There is ascites in the upper abdomen and diffuse mesenteric edema. CT/CT chest w con IMPRESSION: 1. Large right pleural effusion with atelectasis of the adjacent right lung. There is also a small left pleural effusion. 2. Ascites in the upper abdomen. Electronically authenticated by: NIKUNJ YA Date: 05/18/2023 18:32
[2023-05-18 17:40] VITALS: PULSE 110; RESP 20; O2SAT 90
[2023-05-18 17:43] LABS: Basophils Absolute Auto 0.1 10^3/uL (0.0-0.1); Basophils Percent Auto 0.4 % (0.2-2.0); Eosinophils Absolute Auto 0.2 10^3/uL (0.0-0.7); Eosinophils Percent Auto 1.5 % (0.9-7.0); Hematocrit 36.5 % (42.0-54.0); Hemoglobin 12.5 g/dL (14.0-18.0); Immature Granulocytes Abs Auto 0.32 10^3/uL (0.00-0.03); Lymphocytes Absolute Auto 2.3 10^3/uL (1.2-3.8); Lymphocytes Percent Auto 14.4 % (20.5-60.0); Mean Corpuscular HGB Conc 34.2 g/dL (29.9-35.2); Mean Corpuscular Hemoglobin 33.3 pg (25.9-34.0); Mean Corpuscular Volume 97.3 fL (80.0-94.0); Mean Platelet Volume 9.7 fL (9.5-13.5); Monocytes Absolute Auto 1.8 10^3/uL (0.3-0.8); Monocytes Percent Auto 11.4 % (1.7-12.0); Neutrophils Absolute Auto 11.1 10^3/uL (1.4-6.5); Neutrophils Percent Auto 70.3 % (43.0-75.0); Platelet Count 189 10^3/uL (150-450); Red Blood Count 3.75 10^6/uL (4.70-6.10); Red Cell Distribution Width 16.5 % (11.0-15.0); White Blood Count 15.9 10^3/uL (4.0-11.0)
[2023-05-18 17:50] LABS: Anion Gap 5.7; BUN Creatinine Ratio 10.1; Calcium 7.5 mg/dL (8.5-10.1); Carbon Dioxide 31.6 mmol/L (21.0-32.0); Chloride 95 mmol/L (98-107); Estimated GFR (African America >60 (>=60); Estimated GFR (Non-African Ame >60 (>=60); Glucose 97 mg/dL (74-106); Potassium 3.3 mmol/L (3.5-5.1); Sodium 129 mmol/L (136-145)
[2023-05-18 19:37] VITALS: BP 130/76; PULSE 119; RESP 18; O2SAT 94
[2023-05-19 16:38] LABS: SARS-CoV-2 NAA NOT DETECTED (NOT DETECTE)
== END 2023-05-18 20:36 | disposition home or self-care (01) ==
PROVIDERS: Emergency Medicine; Emergency Provider Internal Medicine; PCP Internal Medicine
DX: J90 Pleural effusion, not elsewhere classified (principal); E88.01 Alpha-1-antitrypsin deficiency; Z79.899 Other long term (current) drug therapy; Z20.822 Contact with and (suspected) exposure to COVID-19
CPT/HCPCS: 36415; 71045; 71260; 80048; 85025; 87635; 87811; 99285; Q9967; U0003

== ENCOUNTER 2023-05-20 11:05 | Outpatient (RCR) | payer OTHER, SELFPAY ==
[2023-05-20 11:26] VITALS: BP 110/62; PULSE 116; RESP 20; TEMP 37.1; O2SAT 95
--- NOTE | 2023-05-20 12:05 | XR_ITS ---
[address] [address] Patient Name: KYLE ANTONY MRN: [id number] date: 1990 Sex: M Assigned Patient Location: ICU Current Patient Location: ICU Accession/Order Number: [id number] Exam Date: 05/20/2023 12:10 Report Date: 05/20/2023 13:06 At the request of: NAYAN ARORA Procedure: XR chest 1V EXAMINATION: XR chest 1V 05/20/2023 10:04 AM PDT HISTORY: s/p right thoracentesis - 2900mL removed TECHNIQUE: Single frontal view of the chest acquired. COMPARISONS: Chest x-ray 05/18/2023. FINDINGS: Lines/tubes/other: None. Heart and mediastinum: Stable. Bones: No acute osseous abnormality. Lungs: Mild patchy opacification in the medial right base. Pleura: Significantly decreased size of the right pleural effusion. No significant residual pleural effusion. No pneumothorax. Other: None. XR/XR chest 1V IMPRESSION: No pneumothorax status post thoracentesis. Mild patchy opacification of the right base which may represent atelectasis. Electronically authenticated by: OSBALDO JOY Date: 05/20/2023 13:06
--- NOTE | 2023-05-20 12:06 | PC.NURSE ---
1140 Dr Burch present. Time out performed. Site verified via ultrasound. Thorocentesis procedure initiated
--- NOTE | 2023-05-20 12:07 | W.PM.PROCNOT ---
Date of procedure: 05/20/23 Pre-op diagnosis: Large right pleural effusion Post-op diagnosis: same as pre-op Procedure: Procedure: Diagnostic & therapeutic ultrasound-guided right-sided thoracentesis Consent: Informed consent was obtained after risks, benefits, and alternatives were discussed with the patient. Time out was initiated to confirm the correct patient, site, and procedure with all present voicing in the affirmative. Procedure: The patient was placed in the seated position in the hospital bed. Ultrasound was utilized to identify the hemidiaphragm and pleural fluid on the right. Tongue sign was present on ultrasound, indicating a right pleural effusion. An appropriate drainage site was marked via pen, based on anatomical landmarks and the ultrasound findings. Chloraprep was used to cleanse the lower right hemithorax. Sterile drapes were applied. Lidocaine 1% 10mL was injected, first as superficial skin wheal, and then using aspiration technique, advanced over the superior aspect of the lower rib subcutaneously at the periosteum and then parietal pleura. Easy return of allyson colored pleural fluid was aspirated. Next, a small incision was made to the anesthetized area with the blade provided in the prepackaged thoracentesis kit. Hemostasis was achieved. A zyfsrjvm-ecgl-nldryh apparatus was advanced as a unit over the superior aspect of the lower rib into the pleural space with great care to prevent further progression of the needle into the pleural cavity. The needle was then retracted completely and discarded. A vacuum collection system was attached to the catheter and pleural fluid was collected for analysis. A total of 2900mL of pleural fluid was removed. The procedure was terminated due to coughing. The catheter was then removed during an expiratory breath-hold maneuver. The patient tolerated the procedure well. A post-procedural portable chest x-ray was ordered to assess adequacy of pleural fluid drainage and to evaluate for iatrogenic pneumothorax; results are pending at the time of this report. Specimens: -Pleural fluid sent for cytology, chemistries, and culture Surgeon: Harrison Burch Estimated blood loss (mL): 0 Condition: stable Disposition: no change
[2023-05-20 12:23] VITALS: BP 114/66; PULSE 113; RESP 18; O2SAT 97
--- NOTE | 2023-05-20 13:09 | PC.NURSE ---
Dr Burch telephones and gives ok to release patient based on results of chest x ray
[2023-05-21 13:09] LABS: Amylase, Body Fluid 11 U/L (.); Glucose, Body Fluid 111 mg/dL (.); LD, Body Fluid 110 IU/L (.); Protein, Body Fluid 1.2 g/dL (.); Triglycerides, Fluid 18 mg/dL (Not Estab.)
[2023-05-21 14:09] LABS: Clarity, Serous Hazy (Clear); Color, Serous Straw (.); Eosinophils, Serous 0 % (Not Estab.); Lymphocytes, Serous 30 % (Not Estab.); Macrophages, Serous 65 % (Not Estab.); Neut, Serous 5 % (0-24); Nucleated Cells, Serous 740 /mm3 (0-499); RBC, Serous 3000 /uL (Not Estab.)
[2023-05-22 17:07] LABS: pH, Body Fluid 7.4 (Not Estab.)
== END 2023-05-24 23:59 | disposition home or self-care (01) ==
LOC: INF 11:05
PROVIDERS: PCP Internal Medicine; Visit Provider Internal Medicine
DX: J90 Pleural effusion, not elsewhere classified (principal)
CPT/HCPCS: 32555; 36415; 71045; 82150; 82945; 83615; 83986; 84157; 84478; 87070; 87205; 89050; 89051; C1887

== ENCOUNTER 2023-05-21 07:52 | Day surgery (SDC) | payer OTHER, SELFPAY ==
--- NOTE | 2023-05-21 07:54 | US_ITS ---
[address] [address] Patient Name: KYLE ANTONY MRN: [id number] date: 1990 Sex: M Assigned Patient Location: Current Patient Location: Accession/Order Number: [id number] Exam Date: 05/21/2023 08:00 Report Date: 05/21/2023 11:00 At the request of: NON-STAFF PHYSICIAN Procedure: US paracentesis abd w/image EXAMINATION: US paracentesis abd w/image HISTORY: [place]ities COMPARISON: No relevant comparison available. DESCRIPTION: Informed consent was obtained. The patient was prepped and draped in standard sterile fashion. Ultrasound-guided paracentesis was performed in the usual sterile manner using 1% Xylocaine. FINDINGS: SITE: Right lower quadrant NEEDLE: Paracentesis 8 Fr. catheter over 18 gauge needle MEDICATION: 16 cc 1% buffered lidocaine for local anesthesia FLUID DESCRIPTION: Clear, medial mid yellow FLUID VOLUME: 1.5 L COMPLICATIONS: None LABORATORY: None OTHER: The first catheter stopped draining after 50 cc likely related to collapse due to the deep position. A second catheter flowed normally. Difficulty in placing the catheter into the intraperitoneal space due to very thick abdominal wall related to subcutaneous edema measuring up to 20 cm US/US paracentesis abd w/image IMPRESSION: Technically successful paracentesis Electronically authenticated by: HANS SMITH Date: 05/21/2023 11:00
[2023-05-21 08:15] VITALS: BP 103/59; PULSE 86; O2SAT 95
[2023-05-21] MEDS: LIDOCAINE HCL 10 ML, SODIUM BICARBONATE 1 MEQ INJ (08:30)
[2023-05-21 08:40] VITALS: BP 104/50
[2023-05-21 08:50] VITALS: BP 97/53
[2023-05-21 09:00] VITALS: BP 100/55
[2023-05-21 09:10] VITALS: BP 103/57
[2023-05-21 09:20] VITALS: BP 105/51
--- NOTE | 2023-05-21 09:59 | SUR.HOLD ---
0800 22 ga IV started in right AC X1 attempt. [address] with clear allyson fluid noted. Very slow stream noted and catheter adjusted and bottle changed with no improvement in stream. 914 fluid stream ceased and catheter readjusted. Pt c/o pain near catheter site and wishes to have it removed. Pt to see liver specialist tomorrow and will ask him about getting a drain placed that he can do himself at home. IV d/c.
== END 2023-05-21 09:35 | disposition home or self-care (01) ==
LOC: US 07:52
PROVIDERS: Radiology Diagnostic Radiology; PCP Internal Medicine
DX: R18.8 Other ascites (principal)
CPT/HCPCS: 49083; 88112; 88305; 88341; 88342

== ENCOUNTER 2023-05-27 10:51 | Emergency (ER) | payer OTHER, SELFPAY ==
[2023-05-27] VITALS (26 sets, daily range): BP systolic 83–126; BP diastolic 36–97; PULSE 109–113; RESP 18–23; TEMP 37.3; O2SAT 91–98; BMI 48.7
--- NOTE | 2023-05-27 11:20 | ECG_ITS ---
The [facility] Test Date: 2023-05-27 Pat Name: KYLE ANTONY Department: Room: - Gender: Male Client Success Specialist: : 1990 Requested By: FATUMA CRAWLEY Order Number: [id number] Reading MD: FATUMA CRAWLEY Measurements Intervals [place] Rate: 87 P: 172 [place]: 196 QRS: -6 QRSD: 90 T: 221 QT: 314 QTc: 359 Interpretive Statements 1220 Rapid atrial rhythm 1570 with occasional ventricular premature complexes 3114 Cannot rule out anterior myocardial infarction, age undetermined 4564 Twave abnormality, possible lateral ischemia 4664 Twave abnormality, possible inferior ischemia 8102 Low QRS voltage in chest leads 8305 Short QTc interval 9150 abnormal ECG No previous ECG available for comparison Electronically Signed On 05-28-2023 7:34:35 EDT by FATUMA CRAWLEY
--- NOTE | 2023-05-27 11:21 | XR_ITS ---
The [address] [address] Patient Name: KYLE ANTONY MRN: [id number] date: 1990 Sex: M Assigned Patient Location: ER Current Patient Location: ER Accession/Order Number: [id number] Exam Date: 05/27/2023 11:44 Report Date: 05/27/2023 12:03 At the request of: VIVIAN BUSTILLOS Procedure: XR chest 1V PROCEDURE: XR chest 1V DATE: 05/27/2023 10:44 AM CDT COMPARISONS: Chest x-ray from 05/20/2023. CT chest 05/18/2023 CLINICAL INDICATION: 33 years Male cough, recent thoracentesis FINDINGS: Heart and mediastinum remain stable. Difficult to well assessed the heart and mediastinum because of what appears to be a large right pleural effusion. The left lung field is clear. There may be small left pleural effusion but no definite left pleural effusion identified. There is no evidence of pneumothorax. There is opacification of the lower two thirds of the right lung probably by pleural effusion and associated atelectasis. This presumed right-sided effusion has increased in size since 05/20/2023. XR/XR chest 1V IMPRESSION: Findings most consistent with large right pleural effusion. This has increased since 05/20/2023. Electronically authenticated by: FREIDA CHENG Date: 05/27/2023 12:03
--- NOTE | 2023-05-27 11:22 | ED_ITS ---
HPI - General Adult General Chief complaint: Weakness Stated complaint: GENERAL WEAKNESS Time Seen by Provider: 05/27/23 11:16 Source: patient Mode of arrival: Wheelchair Limitations: no limitations History of Present Illness HPI narrative: 33-year-old male presents for weakness and cough. He's had a cough for three or four days and he doesn't have a fever and it's nonproductive. He had a recent thoracentesis on the right side. He had paracentesis last week as well. He has a history of liver issues because of alpha-1 antitrypsin deficiency. no vomiting. Related Data Home Medications Medication Instructions Recorded Confirmed atenolol 50 mg tablet 50 mg PO DAILY 03/19/23 05/21/23 brimonidine 1 drp ophthalmic (eye) BID 03/19/23 05/21/23 cetirizine 10 mg capsule (Zyrtec) 10 mg PO DAILY 03/19/23 05/21/23 cholecalciferol (vitamin D3) 25 25 mcg PO DAILY 03/19/23 05/21/23 mcg (1,000 unit) capsule citalopram 20 mg tablet 20 mg PO DAILY 03/19/23 05/21/23 fluticasone 250 mcg-salmeterol 50 1 inh inhalation BID 03/19/23 05/21/23 mcg/dose blistr powdr for inhalation (Advair Diskus) fluticasone propionate 50 2 spray intranasal DAILY 03/19/23 05/21/23 mcg/actuation nasal spray,suspension latanoprostene bunod 0.024 % eye 1 drp ophthalmic (eye) QPM 03/19/23 05/21/23 drops montelukast 10 mg tablet 10 mg PO DAILY 03/19/23 05/21/23 (Singulair) omeprazole 20 mg tablet,delayed 20 mg PO DAILY 03/19/23 05/21/23 release spironolactone 50 mg PO DAILY 04/23/23 05/21/23 bumetanide 1 mg tablet 2 mg PO DAILY 05/18/23 05/21/23 Vitamin B 1 tab PO DAILY 05/21/23 05/21/23 ferrous sulfate 325 mg (65 mg 325 mg PO DAILY 05/21/23 05/21/23 iron) tablet (iron) Previous Rx's Medication Instructions Recorded ondansetron 4 mg disintegrating 4 mg PO Q8H PRN nausea and 04/05/23 tablet vomiting 4 days #16 tabs oxycodone 5 mg capsule 5 mg PO Q8H PRN pain 3 days #9 caps 04/05/23 Allergies Allergy/AdvReac Type Severity Reaction Status Date / Time No Known Drug Allergies Allergy Verified 05/21/23 08:51 PFSH PFSH Medical History Pbvtg-8-fcbxduzrtlm deficiency ?E88.01 - Idzul-9-btwwxqiyfdk deficiency (ICD-10) Ascites ?R18.8 - Other ascites (ICD-10) COPD (chronic obstructive pulmonary disease) ?J44.9 - Chronic obstructive pulmonary disease, unspecified (ICD-10) Gastroenteritis ?K52.9 - Noninfective gastroenteritis and colitis, unspecified (ICD-10) GERD (gastroesophageal reflux disease) ?K21.9 - Gastro-esophageal reflux disease without esophagitis (ICD-10) Glaucoma ?H40.9 - Unspecified glaucoma (ICD-10) HTN (hypertension) ?I10 - Essential (primary) hypertension (ICD-10) Surgical History History of abdominal paracentesis ?Z98.890 - Other specified postprocedural states (ICD-10) History of cholecystectomy ?Z90.49 - Acquired absence of other specified parts of digestive tract (ICD- 10) History of liver biopsy ?Z98.890 - Other specified postprocedural states (ICD-10) S/P thoracentesis ?Z98.890 - Other specified postprocedural states (ICD-10) Social History Smoking status: Never smoker Exam Narrative Exam Narrative: Nurses note and vital signs reviewed and patient is not hypoxic. General: The patient appears well and in no apparent distress. Patient is resting comfortably on cart. Skin: Warm, dry, no pallor noted. There is no rash noted. Head: Normocephalic, atraumatic Eye: Normal conjunctiva, no drainage Ears, Nose, Mouth, and Throat: oral mucosa is moist. Nares patent. Cardiovascular: Regular Rate and Rhythm Respiratory: Patient is in no distress, no accessory muscle use, breath sounds seem mildly diminished on his right. Back: non-tender GI: distended, fluid wave present Musculoskeletal: The patient has no evidence of calf tenderness, no pitting edema, symmetrical pulses noted bilaterally Neurological: A&O, normal speech Psychiatric: Cooperative Constitutional Vital Signs, click to edit/add: Last Vital Signs Temp 99.1 F 05/27/23 11:03 Pulse 109 H 05/27/23 11:50 Resp 23 05/27/23 11:50 BP 97/46 L 05/27/23 15:30 Pulse Ox 96 05/27/23 15:30 O2 Del Method Room Air 05/27/23 11:03 Course Vital Signs Vital signs: Vital Signs Temperature 99.1 F 05/27/23 11:03 Pulse Rate 113 H 05/27/23 11:03 Respiratory Rate 18 05/27/23 11:03 Blood Pressure 119/97 H 05/27/23 11:03 Pulse Oximetry 93 L 05/27/23 11:03 Oxygen Delivery Method Room Air 05/27/23 11:03 Temperature 99.1 F 05/27/23 11:03 Pulse Rate 109 H 05/27/23 11:50 Respiratory Rate 23 05/27/23 11:50 Blood Pressure 97/46 L 05/27/23 15:30 Pulse Oximetry 96 05/27/23 15:30 Oxygen Delivery Method Room Air 05/27/23 11:03 Medical Decision Making MDM Narrative Medical decision making narrative: the patient has been seen by his realtime reporter here and had thoracentesis performed with removal of 4 L. His O2 sat is much improved and he seems to be asymptomatic from an acute standpoint. We have made attempts to talk to the transplant team in [place] but have been unsuccessful. The patient will be discharged home with instructions to follow-up with his team. There is no indication for admission to the hospital or transfer to [place]. Findings are discussed thoroughly with the patient. Differential Diagnosis Differential Diagnosis: effusion, pneumonia Lab Data Lab results reviewed: Yes I reviewed the patient's lab results Labs: Lab Results 05/27/23 Range/Units 11:40 WBC 15.4 H (4.0-11.0) 10^3/uL RBC 3.60 L (4.70-6.10) 10^6/uL Hgb 12.3 L (14.0-18.0) g/dL Hct 35.1 L (42.0-54.0) % MCV 97.5 H (80.0-94.0) fL MCH 34.2 H (25.9-34.0) pg MCHC 35.0 (29.9-35.2) g/dL RDW 16.4 H (11.0-15.0) % Plt Count 160 (150-450) 10^3/uL MPV 9.9 (9.5-13.5) fL Neut % (Auto) 73.3 (43.0-75.0) % Lymph % (Auto) 13.3 L (20.5-60.0) % [place] % (Auto) 11.2 (1.7-12.0) % Eos % (Auto) 0.7 L (0.9-7.0) % Baso % (Auto) 0.5 (0.2-2.0) % Neut # (Auto) 11.3 H (1.4-6.5) 10^3/uL Lymph # (Auto) 2.0 (1.2-3.8) 10^3/uL [place] # (Auto) 1.7 H (0.3-0.8) 10^3/uL Eos # (Auto) 0.1 (0.0-0.7) 10^3/uL Baso # (Auto) 0.1 (0.0-0.1) 10^3/uL Abs Immat Gran (auto) 0.15 H (0.00-0.03) 10^3/uL Imm/Tot Granulo (auto) 1.0 H (0.0-0.5) % Sodium 126 L (136-145) mmol/L Potassium 3.0 L (3.5-5.1) mmol/L Chloride 91 L (98-107) mmol/L Carbon Dioxide 31.0 (21.0-32.0) mmol/L Anion Gap 7.0 BUN 9.0 (7.0-18.0) mg/dL Creatinine 0.69 L (0.70-1.30) mg/dL Est GFR ( Amer) >60 (>=60) Est GFR (Non-Af Amer) >60 (>=60) BUN/Creatinine Ratio 13.0 Glucose 114 H (74-106) mg/dL Calcium 7.5 L (8.5-10.1) mg/dL Total Bilirubin 5.0 H (0.2-1.0) mg/dL Direct Bilirubin 1.8 H* (0.0-0.2) mg/dL AST 94 H (15-37) U/L ALT 51 (16-63) U/L Alkaline Phosphatase 131 H (46-116) U/L Total Protein 6.8 (6.4-8.2) g/dL Albumin 1.8 L (3.4-5.0) g/dL Globulin 5.0 g/dL Albumin/Globulin Ratio 0.4 Imaging Data two chest x-rays: Radiologist's impression: Procedure: XR chest 1V PROCEDURE: XR chest 1V DATE: 05/27/2023 10:44 AM CDT COMPARISONS: Chest x-ray from 05/20/2023. CT chest 05/18/2023 CLINICAL INDICATION: 33 years Male cough, recent thoracentesis FINDINGS: Heart and mediastinum remain stable. Difficult to well assessed the heart and mediastinum because of what appears to be a large right pleural effusion. The left lung field is clear. There may be small left pleural effusion but no definite left pleural effusion identified. There is no evidence of pneumothorax. There is opacification of the lower two thirds of the right lung probably by pleural effusion and associated atelectasis. This presumed right-sided effusion has increased in size since 05/20/2023. IMPRESSION: Findings most consistent with large right pleural effusion. This has increased since 05/20/2023. Electronically authenticated by: FREIDA CHENG Date: 05/27/2023 12:03 PROCEDURE: XR chest 1V DATE: 05/27/2023 2:25 PM CDT COMPARISONS: The present exam is done at 1325 on 05/27/2023 and is compared to previous exam done at 1144 same day CLINICAL INDICATION: 33 years Male postthoracentesis FINDINGS: The cardiomediastinal silhouette and pulmonary vasculature are within normal limits. The right pleural effusion has resolved in the interval consistent with interval thoracentesis. There is no evidence of left pleural effusion. There is no evidence of pneumothorax. IMPRESSION: Resolution of what appeared to be a large right pleural effusion noted on an exam from approximately 2 hours earlier. No evidence of pneumothorax. Electronically authenticated by: FREIDA CHENG Date: 05/27/2023 13:59 Discharge Plan Discharge Chief Complaint: Weakness Clinical Impression: Pleural effusion Patient Disposition: Home, Self-Care Time of Disposition Decision: 16:13 Condition: Good Mode of Transportation: Private Vehicle Prescriptions / Home Meds: No Action ondansetron 4 mg tablet,disintegrating 4 mg PO Q8H PRN (Reason: nausea and vomiting) 4 Days Qty: 16 0RF oxycodone 5 mg capsule 5 mg PO Q8H MDD 3 caps PRN (Reason: pain) 3 Days Qty: 9 0RF bumetanide 1 mg tablet 2 mg PO DAILY Vitamin B 1 tab PO DAILY ferrous sulfate [iron] 325 mg (65 mg iron) tablet 325 mg PO DAILY fluticasone propion-salmeterol [Advair Diskus] 250-50 mcg/dose blister with device 1 inh inhalation BID atenolol 50 mg tablet 50 mg PO DAILY Patient Comments: has been holding due to low blood pressure brimonidine 1 drp ophthalmic (eye) BID Patient Comments: ou citalopram 20 mg tablet 20 mg PO DAILY fluticasone propionate 50 mcg/actuation spray,suspension 2 spray intranasal DAILY Rx Instructions: administer into each nostril latanoprostene bunod 0.024 % drops 1 drp ophthalmic (eye) QPM Patient Comments: ou omeprazole 20 mg tablet,delayed release (DR/EC) 20 mg PO DAILY cholecalciferol (vitamin D3) 25 mcg (1,000 unit) capsule 25 mcg PO DAILY Zyrtec 10 mg capsule 10 mg PO DAILY montelukast [Singulair] 10 mg tablet 10 mg PO DAILY spironolactone 50 mg PO DAILY Instructions: Pleural Effusion (DC), Thoracentesis (DC) Additional Instructions: Follow-up with your transplant team Stand Alone Forms: Portal Instructions Referrals: Cecil Hernandez MD [Primary Care Provider] - 1 week
[2023-05-27 11:50] LABS: Basophils Absolute Auto 0.1 10^3/uL (0.0-0.1); Basophils Percent Auto 0.5 % (0.2-2.0); Eosinophils Absolute Auto 0.1 10^3/uL (0.0-0.7); Eosinophils Percent Auto 0.7 % (0.9-7.0); Hematocrit 35.1 % (42.0-54.0); Hemoglobin 12.3 g/dL (14.0-18.0); Immature Granulocytes Abs Auto 0.15 10^3/uL (0.00-0.03); Lymphocytes Percent Auto 13.3 % (20.5-60.0); Mean Corpuscular Hemoglobin 34.2 pg (25.9-34.0); Mean Corpuscular Volume 97.5 fL (80.0-94.0); Mean Platelet Volume 9.9 fL (9.5-13.5); Monocytes Absolute Auto 1.7 10^3/uL (0.3-0.8); Monocytes Percent Auto 11.2 % (1.7-12.0); Neutrophils Absolute Auto 11.3 10^3/uL (1.4-6.5); Neutrophils Percent Auto 73.3 % (43.0-75.0); Platelet Count 160 10^3/uL (150-450); Red Cell Distribution Width 16.4 % (11.0-15.0); White Blood Count 15.4 10^3/uL (4.0-11.0)
[2023-05-27 11:56] LABS: Calcium 7.5 mg/dL (8.5-10.1); Chloride 91 mmol/L (98-107); Estimated GFR (African America >60 (>=60); Estimated GFR (Non-African Ame >60 (>=60); Glucose 114 mg/dL (74-106); Sodium 126 mmol/L (136-145)
[2023-05-27 12:05] LABS: Alanine Aminotransferase 51 U/L (16-63); Albumin Globulin Ratio 0.4; Albumin Level 1.8 g/dL (3.4-5.0); Alkaline Phosphatase 131 U/L (46-116); Aspartate Amino Transferase 94 U/L (15-37); Total Protein 6.8 g/dL (6.4-8.2)
[2023-05-27 12:07] LABS: Bilirubin Direct 1.8 mg/dL (0.0-0.2)
--- NOTE | 2023-05-27 13:20 | XR_ITS ---
The [address] [address] Patient Name: KYLE ANTONY MRN: [id number] date: 1990 Sex: M Assigned Patient Location: ER Current Patient Location: ER Accession/Order Number: [id number] Exam Date: 05/27/2023 15:25 Report Date: 05/27/2023 13:59 At the request of: VIVIAN BUSTILLOS Procedure: XR chest 1V PROCEDURE: XR chest 1V DATE: 05/27/2023 2:25 PM CDT COMPARISONS: The present exam is done at 1325 on 05/27/2023 and is compared to previous exam done at 1144 same day CLINICAL INDICATION: 33 years Male postthoracentesis FINDINGS: The cardiomediastinal silhouette and pulmonary vasculature are within normal limits. The right pleural effusion has resolved in the interval consistent with interval thoracentesis. There is no evidence of left pleural effusion. There is no evidence of pneumothorax. XR/XR chest 1V IMPRESSION: Resolution of what appeared to be a large right pleural effusion noted on an exam from approximately 2 hours earlier. No evidence of pneumothorax. Electronically authenticated by: FREIDA CHENG Date: 05/27/2023 13:59
--- NOTE | 2023-05-27 15:38 | W.PM.PROCNOT ---
Date of procedure: 05/27/23 Pre-op diagnosis: Very large recurrent right pleural effusion Post-op diagnosis: same as pre-op Procedure: Procedure: Therapeutic ultrasound-guided right-sided thoracentesis, performed in the ER urgently History: Patient had right thoracentesis of 2900mL removed on 05/20/2023. Fluid has rapidly reaccumulated in just a week and appears even larger now than last time. Consent: Informed consent was obtained after risks, benefits, and alternatives were discussed with the patient. Time out was initiated to confirm the correct patient, site, and procedure with all present voicing in the affirmative. Procedure: The patient was placed in the seated position in the hospital bed in the ER. Ultrasound was utilized to identify the hemidiaphragm and pleural fluid on the right. Ultrasound confirmed a very large effusion. The previous thoracentesis incision remained in a proper window for insertion of the catheter; this was used as the marker for an appropriate drainage site. Chloraprep was used to cleanse the lower right hemithorax. Sterile drapes were applied. Lidocaine 1% 10mL was injected, first as superficial skin wheal, and then using aspiration technique, advanced over the superior aspect of the lower rib subcutaneously at the periosteum and then parietal pleura. Easy return of allyson colored pleural fluid was aspirated. Next, a small incision was made to the anesthetized area with the blade provided in the prepackaged thoracentesis kit. Hemostasis was achieved. A xahdhffp-pegg-kpkumz apparatus was advanced as a unit over the superior aspect of the lower rib into the pleural space with great care to prevent further progression of the needle into the pleural cavity. The needle was then retracted completely and discarded. A vacuum collection system was attached to the catheter and pleural fluid was collected for analysis. A total of 4000mL of pleural fluid was removed. The procedure was terminated due to concern regarding further fluid and potential for complications. The catheter was then removed during an expiratory breath-hold maneuver. The patient tolerated the procedure well. Ultrasound revealed reduction in pleural fluid, but there was a mild amount of remnant fluid. A post-procedural portable chest x-ray was ordered to assess adequacy of pleural fluid drainage and to evaluate for iatrogenic pneumothorax; chest x-ray revealed marked reduction of the pleural effusion without a post-procedural pneumothorax. Specimens: -Prior specimens from 05/20/2023 were consistent with hepatic hydrothorax. Decision was made that further fluid analysis was unnecessary in this case. Surgeon: Harrison Burch Estimated blood loss (mL): 0 Condition: stable
--- NOTE | 2023-05-27 15:46 | PM.PLCN ---
History of Present Illness History of Present Illness Consult date: 05/27/23 Requesting physician: Sarwat Matthews Reason for consult: pleural effusion Chief complaint: GENERAL WEAKNESS Narrative: 33yo male, very well known to me, presented to [facility] ER with weakness and dyspnea. CXR revealed a very large right pleural effusion. 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 Due to the size of the effusion and the patient's dyspnea, the ER contacted me. I saw the patient in the ER room. He appeared weak and dyspneic. Repeated thoracenteses are generally not recommended in cases such as this, but as he was visibly dyspneic, I discussed a repeat thoracentesis with him. He voiced agreement and 4000mL were removed, with more pleural fluid remaining when I screened his chest with a post-procedural ultrasound! His SpO2 improved from ~91% to 96% after the thoracentesis with voiced improvement in dyspnea. He was scheduled to F/U with me tomorrow (05/28/2023) regarding the 05/20/2023 thoracentesis. Review of Systems ROS Status of ROS 10 or more systems reviewed and unremarkable except as noted in history and below (Main complaint is dyspnea, weakness with difficulty ambulating) [facility] Medical History Ectrx-5-rnqjlwnlycu deficiency ?E88.01 - Zotty-4-jgpuhxeqlmf deficiency (ICD-10) Ascites ?R18.8 - Other ascites (ICD-10) COPD (chronic obstructive pulmonary disease) ?J44.9 - Chronic obstructive pulmonary disease, unspecified (ICD-10) Gastroenteritis ?K52.9 - Noninfective gastroenteritis and colitis, unspecified (ICD-10) GERD (gastroesophageal reflux disease) ?K21.9 - Gastro-esophageal reflux disease without esophagitis (ICD-10) Glaucoma ?H40.9 - Unspecified glaucoma (ICD-10) HTN (hypertension) ?I10 - Essential (primary) hypertension (ICD-10) Surgical History History of abdominal paracentesis ?Z98.890 - Other specified postprocedural states (ICD-10) History of cholecystectomy ?Z90.49 - Acquired absence of other specified parts of digestive tract (ICD-10) History of liver biopsy ?Z98.890 - Other specified postprocedural states (ICD-10) S/P thoracentesis ?Z98.890 - Other specified postprocedural states (ICD-10) Social History Smoking status: Never smoker Meds Home Medications and Allergies Home Medications Medication Instructions Recorded Confirmed Type atenolol 50 mg tablet 50 mg PO DAILY 03/19/23 05/21/23 History brimonidine 1 drp ophthalmic (eye) BID 03/19/23 05/21/23 History cetirizine 10 mg capsule (Zyrtec) 10 mg PO DAILY 03/19/23 05/21/23 History cholecalciferol (vitamin D3) 25 25 mcg PO DAILY 03/19/23 05/21/23 History mcg (1,000 unit) capsule citalopram 20 mg tablet 20 mg PO DAILY 03/19/23 05/21/23 History fluticasone 250 mcg-salmeterol 50 1 inh inhalation BID 03/19/23 05/21/23 History mcg/dose blistr powdr for inhalation (Advair Diskus) fluticasone propionate 50 2 spray intranasal DAILY 03/19/23 05/21/23 History mcg/actuation nasal spray,suspension latanoprostene bunod 0.024 % eye 1 drp ophthalmic (eye) QPM 03/19/23 05/21/23 History drops montelukast 10 mg tablet 10 mg PO DAILY 03/19/23 05/21/23 History (Singulair) omeprazole 20 mg tablet,delayed 20 mg PO DAILY 03/19/23 05/21/23 History release ondansetron 4 mg disintegrating 4 mg PO Q8H PRN nausea and 04/05/23 05/21/23 Rx tablet vomiting 4 days #16 tabs oxycodone 5 mg capsule 5 mg PO Q8H PRN pain 3 days #9 caps 08/12/23 09/27/23 Rx spironolactone 50 mg PO DAILY 04/23/23 05/21/23 History bumetanide 1 mg tablet 2 mg PO DAILY 05/18/23 05/21/23 History Vitamin B 1 tab PO DAILY 05/21/23 05/21/23 History ferrous sulfate 325 mg (65 mg 325 mg PO DAILY 05/21/23 05/21/23 History iron) tablet (iron) Allergies Allergy/AdvReac Type Severity Reaction Status Date / Time No Known Drug Allergies Allergy Verified 05/21/23 08:51 Exam Constitutional Vital Signs, click to edit/add: Last Vital Signs Temp 99.1 F 05/27/23 11:03 Pulse 109 H 05/27/23 11:50 Resp 23 05/27/23 11:50 BP 97/46 L 05/27/23 15:30 Pulse Ox 96 05/27/23 15:30 O2 Del Method Room Air 05/27/23 11:03 Documenting provider has reviewed patient's vital signs: yes Common normals: negative for healthy appearing General appearance: not comfortable Nutritional appearance: obese morbidly obese Chest Common normals: inspection of chest normal Respiratory Auscultation: breath sounds absent on the right and diminished lung sounds on the left Cardio Rate: regular rate Rhythm: regular rhythm GI Inspection: central obesity and striae Extremity Other: Mild jaundice Neuro Sensorium/orientation: awake and alert Psych Attitude: calm Results Laboratory Findings Abnormal lab findings: Abnormal Labs 05/27/23 11:40 WBC 15.4 H RBC 3.60 L Hgb 12.3 L Hct 35.1 L MCV 97.5 H MCH 34.2 H RDW 16.4 H Lymph % (Auto) 13.3 L Eos % (Auto) 0.7 L Neut # (Auto) 11.3 H [place] # (Auto) 1.7 H Abs Immat Gran (auto) 0.15 H Imm/Tot Granulo (auto) 1.0 H Sodium 126 L Potassium 3.0 L Chloride 91 L Creatinine 0.69 L Glucose 114 H Calcium 7.5 L Total Bilirubin 5.0 H Direct Bilirubin 1.8 H* AST 94 H Alkaline Phosphatase 131 H Albumin 1.8 L Diagnostic Findings Chest x-ray: report reviewed and image reviewed Additional studies: Very large pleural effusion on bedside ultrasound prior to thoracentesis Assessment and Plan Assessment and Plan (1) Pleural effusion on right: Assessment and Plan: 1. 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 Patient just had 2900mL evacuated on 05/20/2023 and 1 week later, there was reaccumulation of >4000mL of fluid! Patient appeared acutely ill and visibly dyspneic. He is better now; however, this is going to return as the underlying problem (hepatic cirrhosis) has yet to be resolved (i.e. liver transplant). For now, he will hopefully have several days of improved breathing. 2. Hepatic cirrhosis secondary to alpha 1-antitrypsin deficiency (genotype ZZ). AAT augmentation therapy will NOT treat ZZ genotype. I spoke with a [facility] cash grain grower/home lending officer, Dr. Wood, about the case. She voiced agreement that repeated thoracenteses are not ideal, but we needed to treat the patient accordingly. He has had a rapid decline since January, when I first saw him. He is in the initial stages of w/up, such as dermatology, dental, etc. referrals. With his rapid decompensation, he may be moved up on the transplant list. If he continues to decompensate and returns to the ER, she suggested transfer to [facility]. 3. Alpha 1-antitrypsin deficiency, ZZ genotype. I worked up the patient in January, for any pulmonary involvement. PFT and CT were unremarkable for any emphysema. 4. Morbid obesity with BMI 48.7. Inducing a restrictive pulmonary physiology. He has lost some weight since his initial visit 01/23/2023 which he was 341 pounds - he is currently 330 pounds. Healthy weight loss encouraged, but with his medical issues, that may be a problem, especially with protein.
== END 2023-05-27 16:30 | disposition home or self-care (01) ==
PROVIDERS: Emergency Provider Emergency Medicine; PCP Family Medicine
DX: J90 Pleural effusion, not elsewhere classified (principal); E88.01 Alpha-1-antitrypsin deficiency; K76.9 Liver disease, unspecified; Z79.899 Other long term (current) drug therapy; J44.9 Chronic obstructive pulmonary disease, unspecified; K21.9 Gastro-esophageal reflux disease without esophagitis; H40.9 Unspecified glaucoma; I10 Essential (primary) hypertension; Z90.49 Acquired absence of other specified parts of digestive tract; Z98.890 Other specified postprocedural states
CPT/HCPCS: 36415; 71045; 80048; 80076; 85025; 93005; 99285

== ENCOUNTER 2023-05-28 12:23 | Day surgery (SDC) | payer OTHER, SELFPAY ==
--- NOTE | 2023-05-28 | US_ITS ---
[address] [address] Patient Name: KYLE ANTONY MRN: [id number] date: 1990 Sex: M Assigned Patient Location: [facility] Current Patient Location: Accession/Order Number: [id number] Exam Date: 05/28/2023 12:30 Report Date: 05/28/2023 15:35 At the request of: NON-STAFF PHYSICIAN Procedure: US paracentesis abd w/image EXAMINATION: US paracentesis abd w/image HISTORY: R18.8 COMPARISON: No relevant comparison available. DESCRIPTION: Informed consent was obtained. The patient was prepped and draped in standard sterile fashion. Ultrasound-guided paracentesis was performed in the usual sterile manner using 1% Xylocaine. FINDINGS: SITE: Left lower quadrant NEEDLE: Paracentesis 8 Fr. catheter over 18 gauge needle MEDICATION: 20 cc 1% buffered Lidocaine for local anesthesia FLUID DESCRIPTION: Medium yellow, clear FLUID VOLUME: 7 liters COMPLICATIONS: None LABORATORY: None OTHER: The patient was given 25 g of albumin following the procedure. US/US paracentesis abd w/image IMPRESSION: Technically successful therapeutic paracentesis Electronically authenticated by: HANS SMITH Date: 05/28/2023 15:35
[2023-05-28] MEDS: ALBUMIN HUMAN 50 GM/200 ML PREMIX IV (15:04)
--- NOTE | 2023-05-28 15:46 | PC.NURSE ---
Patient in at 1300 u/s performed and Dr. Yuen notified of fluid accumulation. Patient educated on paracentesis. Patient states he has had procedure before and has no questions. Consent obtained. 13:50 #22 gauge i.v. start x2 attempts to right a/c. 1355 Dr. Yuen in and further educates patient on procedure. 1402:timeout performed with Dr. Yuen, Angleia Marquez, and this nurse (Lio Mariscal RN) present. bp 115/63. [address] Yuen. Patient tolerates with minimal c/o. 1415 109/56, HR93. 1425: BP 111/59, HR76. Patient tolerating procedure without c/o. 1435 BP: 118/60, no changes in patient's status. 1445: no change bP remains stable at 107/50. 1451: procedure complete. Patient without c/o. bP stable at 112/57. Dr. Yuen d/c paracentesis catheter intact, vaseline gauze covered by 4x4 covered by opsite. 7,100cc drained from paracentesis procedure. 1510: 25gm of Albumin administered. I.V. d/c cath. intact. 1516 BP lying 119/59, sitting at bedside 111/58. Patient denies syncope or weak feeling. 1530: Patient d/c ambulatory without c/o.
== END 2023-05-28 12:24 | disposition home or self-care (01) ==
LOC: US 05-29 11:35
PROVIDERS: PCP Family Medicine
DX: R18.8 Other ascites (principal)
CPT/HCPCS: 49083; P9047

== ENCOUNTER 2023-05-29 06:52 | Inpatient (IN) | payer OTHER, SELFPAY ==
[2023-05-29] VITALS (41 sets, daily range): BP systolic 75–121; BP diastolic 34–62; PULSE 99–112; RESP 9–26; TEMP 36.6–36.9; O2SAT 90–100; BMI 43.6; BMI 43.7
--- NOTE | 2023-05-29 07:19 | ECG_ITS ---
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
[2023-05-29 07:25] LABS: Basophils Absolute Auto 0.1 10^3/uL (0.0-0.1); Basophils Percent Auto 0.6 % (0.2-2.0); Eosinophils Absolute Auto 0.1 10^3/uL (0.0-0.7); Hematocrit 33.6 % (42.0-54.0); Hemoglobin 11.6 g/dL (14.0-18.0); Immature Granulocytes Abs Auto 0.12 10^3/uL (0.00-0.03); Lymphocytes Absolute Auto 1.9 10^3/uL (1.2-3.8); Lymphocytes Percent Auto 14.7 % (20.5-60.0); Mean Corpuscular HGB Conc 34.5 g/dL (29.9-35.2); Mean Corpuscular Hemoglobin 33.9 pg (25.9-34.0); Mean Corpuscular Volume 98.2 fL (80.0-94.0); Mean Platelet Volume 10.4 fL (9.5-13.5); Monocytes Absolute Auto 1.4 10^3/uL (0.3-0.8); Monocytes Percent Auto 11.3 % (1.7-12.0); Neutrophils Percent Auto 71.4 % (43.0-75.0); Platelet Count 144 10^3/uL (150-450); Red Blood Count 3.42 10^6/uL (4.70-6.10); Red Cell Distribution Width 16.6 % (11.0-15.0); White Blood Count 12.6 10^3/uL (4.0-11.0)
--- NOTE | 2023-05-29 07:31 | ED_ITS ---
HPI - General Adult General Chief complaint: Chest Pain Stated complaint: chest pain Time Seen by Provider: 05/29/23 07:09 Source: patient and family Mode of arrival: Wheelchair Limitations: other Limitations comment: autistic, high functioning History of Present Illness HPI narrative: 33-year-old male presents for fatigue. He has a history of alpha-1 antitrypsin deficiency and had thoracentesis two days ago and paracentesis yesterday. He is starting to feel like the fluid is reaccumulating and mother would like him transferred up to the [facility] where his transplant doctor is. He has not had a fever. Mother states that he's been somewhat confused. Related Data Home Medications Medication Instructions Recorded Confirmed atenolol 50 mg tablet 50 mg PO DAILY 03/19/23 05/21/23 brimonidine 1 drp ophthalmic (eye) BID 03/19/23 05/21/23 cetirizine 10 mg capsule (Zyrtec) 10 mg PO DAILY 03/19/23 05/21/23 cholecalciferol (vitamin D3) 25 25 mcg PO DAILY 03/19/23 05/21/23 mcg (1,000 unit) capsule citalopram 20 mg tablet 20 mg PO DAILY 03/19/23 05/21/23 fluticasone 250 mcg-salmeterol 50 1 inh inhalation BID 03/19/23 05/21/23 mcg/dose blistr powdr for inhalation (Advair Diskus) fluticasone propionate 50 2 spray intranasal DAILY 03/19/23 05/21/23 mcg/actuation nasal spray,suspension latanoprostene bunod 0.024 % eye 1 drp ophthalmic (eye) QPM 03/19/23 05/21/23 drops montelukast 10 mg tablet 10 mg PO DAILY 03/19/23 05/21/23 (Singulair) omeprazole 20 mg tablet,delayed 20 mg PO DAILY 03/19/23 05/21/23 release spironolactone 50 mg PO DAILY 04/23/23 05/21/23 bumetanide 1 mg tablet 2 mg PO DAILY 05/18/23 05/21/23 Vitamin B 1 tab PO DAILY 05/21/23 05/21/23 ferrous sulfate 325 mg (65 mg 325 mg PO DAILY 05/21/23 05/21/23 iron) tablet (iron) Previous Rx's Medication Instructions Recorded ondansetron 4 mg disintegrating 4 mg PO Q8H PRN nausea and 04/05/23 tablet vomiting 4 days #16 tabs oxycodone 5 mg capsule 5 mg PO Q8H PRN pain 3 days #9 caps 04/05/23 Allergies Allergy/AdvReac Type Severity Reaction Status Date / Time No Known Drug Allergies Allergy Verified 05/29/23 06:57 Review of Systems ROS Narrative A ten point review of systems is negative except as noted above. PFSH PFSH Medical History Oeuic-9-hqbyvtyxuut deficiency ?E88.01 - Kdxsj-3-ddjrwvmjgey deficiency (ICD-10) Ascites ?R18.8 - Other ascites (ICD-10) COPD (chronic obstructive pulmonary disease) ?J44.9 - Chronic obstructive pulmonary disease, unspecified (ICD-10) Gastroenteritis ?K52.9 - Noninfective gastroenteritis and colitis, unspecified (ICD-10) GERD (gastroesophageal reflux disease) ?K21.9 - Gastro-esophageal reflux disease without esophagitis (ICD-10) Glaucoma ?H40.9 - Unspecified glaucoma (ICD-10) HTN (hypertension) ?I10 - Essential (primary) hypertension (ICD-10) Surgical History History of abdominal paracentesis ?Z98.890 - Other specified postprocedural states (ICD-10) History of cholecystectomy ?Z90.49 - Acquired absence of other specified parts of digestive tract (ICD- 10) History of liver biopsy ?Z98.890 - Other specified postprocedural states (ICD-10) S/P thoracentesis ?Z98.890 - Other specified postprocedural states (ICD-10) Social History Smoking status: Never smoker Exam Narrative Exam Narrative: Nurses note and vital signs reviewed and patient is not hypoxic. General: The patient appears in no apparent distress. he appears uncomfortable Skin: Warm, dry, no pallor noted. There is no rash noted. Head: Normocephalic, atraumatic Eye: Normal conjunctiva, no drainage Ears, Nose, Mouth, and Throat: oral mucosa is moist. Nares patent. Cardiovascular: Regular Rate and Rhythm, borderline tachycardic Respiratory: the patient appears minimally dyspneic. Breath sounds are equal Back: non-tender GI: nondistended Musculoskeletal: The patient has no evidence of calf tenderness, no pitting edema, symmetrical pulses noted bilaterally Neurological: A&O, normal speech Psychiatric: Cooperative Constitutional Vital Signs, click to edit/add: Last Vital Signs Temp 97.8 F 05/29/23 06:57 Pulse 100 H 05/29/23 09:40 Resp 13 05/29/23 09:35 BP 90/38 L 05/29/23 09:49 Pulse Ox 99 05/29/23 08:50 O2 Del Method Room Air 05/29/23 06:57 Course Vital Signs Vital signs: Vital Signs Temperature 97.8 F 05/29/23 06:57 Pulse Rate 108 H 05/29/23 06:57 Respiratory Rate 24 05/29/23 06:57 Blood Pressure 113/59 05/29/23 06:57 Pulse Oximetry 98 05/29/23 06:57 Oxygen Delivery Method Room Air 05/29/23 06:57 Temperature 97.8 F 05/29/23 06:57 Pulse Rate 100 H 05/29/23 09:40 Respiratory Rate 13 05/29/23 09:35 Blood Pressure 90/38 L 05/29/23 09:49 Pulse Oximetry 99 05/29/23 08:50 Oxygen Delivery Method Room Air 05/29/23 06:57 Medical Decision Making MDM Narrative Medical decision making narrative: his workup shows elevated ammonia level. Mother states that he's been quite weak and mildly confused. He'll be admitted for further treatment. I've spoken to both Dr. Harris and Dr Shell at the [facility]. the patient has been accepted there by Dr Shell but they report it will be a few days before they have a bed available. He'll be admitted here in the meantime for treatment of elevated ammonia further stabilization. Findings are discussed with the patient and his mother. Differential Diagnosis Differential Diagnosis: pleural effusion, hyperammonemia, pneumonia, dehydration, liver failure Medical Records Medical records reviewed: Yes I reviewed the patient's medical records Lab Data Lab results reviewed: Yes I reviewed the patient's lab results Labs: Lab Results 05/29/23 05/29/23 05/29/23 Range/Units 07:08 07:24 08:46 WBC 12.6 H (4.0-11.0) 10^3/uL RBC 3.42 L (4.70-6.10) 10^6/uL Hgb 11.6 L (14.0-18.0) g/dL Hct 33.6 L (42.0-54.0) % MCV 98.2 H (80.0-94.0) fL MCH 33.9 (25.9-34.0) pg MCHC 34.5 (29.9-35.2) g/dL RDW 16.6 H (11.0-15.0) % Plt Count 144 L (150-450) 10^3/uL MPV 10.4 (9.5-13.5) fL Neut % (Auto) 71.4 (43.0-75.0) % Lymph % (Auto) 14.7 L (20.5-60.0) % Mckean % (Auto) 11.3 (1.7-12.0) % Eos % (Auto) 1.0 (0.9-7.0) % Baso % (Auto) 0.6 (0.2-2.0) % Neut # (Auto) 9.0 H (1.4-6.5) 10^3/uL Lymph # (Auto) 1.9 (1.2-3.8) 10^3/uL Mckean # (Auto) 1.4 H (0.3-0.8) 10^3/uL Eos # (Auto) 0.1 (0.0-0.7) 10^3/uL Baso # (Auto) 0.1 (0.0-0.1) 10^3/uL Abs Immat Gran (auto) 0.12 H (0.00-0.03) 10^3/uL Imm/Tot Granulo (auto) 1.0 H (0.0-0.5) % Sodium 129 L (136-145) mmol/L Potassium 3.2 L (3.5-5.1) mmol/L Chloride 94 L (98-107) mmol/L Carbon Dioxide 29.0 (21.0-32.0) mmol/L Anion Gap 9.2 BUN 9.0 (7.0-18.0) mg/dL Creatinine 0.73 (0.70-1.30) mg/dL Est GFR ( Amer) >60 (>=60) Est GFR (Non-Af Amer) >60 (>=60) BUN/Creatinine Ratio 12.3 Glucose 112 H (74-106) mg/dL Calcium 7.7 L (8.5-10.1) mg/dL Total Bilirubin 3.1 H (0.2-1.0) mg/dL Direct Bilirubin 1.3 H* (0.0-0.2) mg/dL AST 90 H (15-37) U/L ALT 49 (16-63) U/L Alkaline Phosphatase 115 (46-116) U/L Ammonia 184 H* (11-32) umol/L Troponin I High Sens 7.5 (4.0-76.1) pg/mL Total Protein 6.2 L (6.4-8.2) g/dL Albumin 1.7 L (3.4-5.0) g/dL Globulin 4.5 g/dL Albumin/Globulin Ratio 0.4 Amylase 29 (25-115) U/L Lipase 77.0 (16.0-77.0) U/L SARS-CoV-2 (PCR) Negative (NEGATIVE) Imaging Data Chest x-ray: Radiologist's impression: Procedure: XR chest 1V PROCEDURE: XR chest 1V DATE: 05/29/2023 6:28 AM CDT COMPARISONS: 05/27/2023. CLINICAL INDICATION: 33 years Male SOB FINDINGS: The cardiomediastinal silhouette and pulmonary vasculature are within normal limits. Exam is limited somewhat by lordotic radiographic technique and less than optimal inspiratory radiograph. The diaphragms are elevated, right greater than left. There are findings consistent with some perihilar and infrahilar atelectasis, stable. There is no evidence of pleural effusion or pneumothorax. IMPRESSION: Limited portable radiograph. The present exam shows no definite evidence of pleural effusion. The previous exam showed resolution of the large right pleural effusion. It is possible that there is some residual right pleural effusion not well identified on this lordotic limited radiograph. Overall, the present limited portable lordotic radiograph appears similar to previous exam done 2 days earlier. Electronically authenticated by: FREIDA CHENG Date: 05/29/2023 07:53 Discharge Plan Discharge Chief Complaint: Chest Pain Clinical Impression: Hyperammonemia Patient Disposition: Admitted As Inpatient Time of Disposition Decision: 09:55 Condition: Fair
--- NOTE | 2023-05-29 07:32 | XR_ITS ---
The [address] [address] Patient Name: KYLE ANTONY MRN: [id number] date: 1990 Sex: M Assigned Patient Location: ER Current Patient Location: ER Accession/Order Number: [id number] Exam Date: 05/29/2023 07:28 Report Date: 05/29/2023 07:53 At the request of: VIVIAN BUSTILLOS Procedure: XR chest 1V PROCEDURE: XR chest 1V DATE: 05/29/2023 6:28 AM CDT COMPARISONS: 05/27/2023. CLINICAL INDICATION: 33 years Male SOB FINDINGS: The cardiomediastinal silhouette and pulmonary vasculature are within normal limits. Exam is limited somewhat by lordotic radiographic technique and less than optimal inspiratory radiograph. The diaphragms are elevated, right greater than left. There are findings consistent with some perihilar and infrahilar atelectasis, stable. There is no evidence of pleural effusion or pneumothorax. XR/XR chest 1V IMPRESSION: Limited portable radiograph. The present exam shows no definite evidence of pleural effusion. The previous exam showed resolution of the large right pleural effusion. It is possible that there is some residual right pleural effusion not well identified on this lordotic limited radiograph. Overall, the present limited portable lordotic radiograph appears similar to previous exam done 2 days earlier. Electronically authenticated by: FREIDA CHENG Date: 05/29/2023 07:53
[2023-05-29 07:44] LABS: Alanine Aminotransferase 49 U/L (16-63); Albumin Globulin Ratio 0.4; Albumin Level 1.7 g/dL (3.4-5.0); Alkaline Phosphatase 115 U/L (46-116); Amylase 29 U/L (25-115); Aspartate Amino Transferase 90 U/L (15-37); Bilirubin Total 3.1 mg/dL (0.2-1.0); Globulin 4.5 g/dL; Total Protein 6.2 g/dL (6.4-8.2)
[2023-05-29 07:45] LABS: SARS-CoV-2 Ag NEGATIVE (NEGATIVE)
[2023-05-29 07:47] LABS: Anion Gap 9.2; BUN Creatinine Ratio 12.3; Calcium 7.7 mg/dL (8.5-10.1); Chloride 94 mmol/L (98-107); Estimated GFR (African America >60 (>=60); Estimated GFR (Non-African Ame >60 (>=60); Glucose 112 mg/dL (74-106); Potassium 3.2 mmol/L (3.5-5.1); Sodium 129 mmol/L (136-145); Troponin I High Sensitivity 7.5 pg/mL (4.0-76.1)
[2023-05-29 08:02] LABS: Bilirubin Direct 1.3 mg/dL (0.0-0.2)
[2023-05-29] MEDS: ONDANSETRON PF 4 MG/2 ML VIAL IV (09:20)
[2023-05-29] MEDS: MORPHINE SULFATE 4 MG/ML VIAL IV (09:20)
[2023-05-29 09:28] LABS: Ammonia 184 umol/L (11-32)
[2023-05-29] MEDS: 0.9 % SODIUM CHLORIDE 1,000 ML 75 ML IV (13:20)
[2023-05-29 13:54] LABS: Lactate/Lactic Acid 1.4 mmol/L (0.4-2.0)
[2023-05-29 14:00] LABS: Prothrombin Time 17.5 sec (9.0-11.6)
[2023-05-29] MEDS: LACTULOSE 10 GM/15 ML (237ML) SOLUTION 30 GM PO ×3 (14:56→22:27)
[2023-05-29] MEDS: CIPROFLOXACIN IN 5 % DEXTROSE 400 MG/200 ML PIGGYBACK 200 MG IV (14:56)
[2023-05-29] MEDS: PANTOPRAZOLE SODIUM 40 MG VIAL IV (14:58)
[2023-05-29 15:08] LABS: SARS-CoV-2 NAA NOT DETECTED (NOT DETECTE)
[2023-05-29] MEDS: ALBUMIN HUMAN 25 GM/100 ML PREMIX IV ×2 (17:33→18:59)
--- NOTE | 2023-05-29 17:45 | P.HP_ITS ---
H&P: HPI History of Present Illness Chief complaint: chest pain, LIVER FAILURE Narrative: Patient with increasing weakness at home. Blood pressure significantly low. He has had his normal pressure and thoracentesis this week. In ER found to have leukocytosis, altered mental status, significant hyperammonemia, patient admitted for dehydration possible ascending cholangitis with worsening liver failure Review of Systems ROS Status of ROS 10 or more systems reviewed and unremarkable except as noted in history and below [facility] Medical History (Updated 05/29/23 @ 09:55 by Sarwat Matthews MD) Vwdjn-5-tyzblfcbaod deficiency ?E88.01 - Flcup-4-oumgqtbyvna deficiency (ICD-10) Ascites ?R18.8 - Other ascites (ICD-10) COPD (chronic obstructive pulmonary disease) ?J44.9 - Chronic obstructive pulmonary disease, unspecified (ICD-10) Gastroenteritis ?K52.9 - Noninfective gastroenteritis and colitis, unspecified (ICD-10) GERD (gastroesophageal reflux disease) ?K21.9 - Gastro-esophageal reflux disease without esophagitis (ICD-10) Glaucoma ?H40.9 - Unspecified glaucoma (ICD-10) HTN (hypertension) ?I10 - Essential (primary) hypertension (ICD-10) Surgical History History of abdominal paracentesis ?Z98.890 - Other specified postprocedural states (ICD-10) History of cholecystectomy ?Z90.49 - Acquired absence of other specified parts of digestive tract (ICD- 10) History of liver biopsy ?Z98.890 - Other specified postprocedural states (ICD-10) S/P thoracentesis ?Z98.890 - Other specified postprocedural states (ICD-10) Social History Smoking status: Never smoker Meds Home Medications and Allergies Home Medications Medication Instructions Recorded Confirmed Type atenolol 50 mg tablet 50 mg PO DAILY 03/19/23 05/29/23 History brimonidine 1 drp ophthalmic (eye) BID 03/19/23 05/29/23 History cetirizine 10 mg capsule (Zyrtec) 10 mg PO DAILY 03/19/23 05/29/23 History cholecalciferol (vitamin D3) 25 25 mcg PO DAILY 03/19/23 05/29/23 History mcg (1,000 unit) capsule citalopram 20 mg tablet 20 mg PO DAILY 03/19/23 05/29/23 History fluticasone 250 mcg-salmeterol 50 1 inh inhalation BID 03/19/23 05/29/23 History mcg/dose blistr powdr for inhalation (Advair Diskus) fluticasone propionate 50 2 spray intranasal DAILY 03/19/23 05/29/23 History mcg/actuation nasal spray,suspension latanoprostene bunod 0.024 % eye 1 drp ophthalmic (eye) QPM 03/19/23 05/29/23 History drops montelukast 10 mg tablet 10 mg PO DAILY 03/19/23 05/29/23 History (Singulair) omeprazole 20 mg tablet,delayed 20 mg PO DAILY 03/19/23 05/29/23 History release ondansetron 4 mg disintegrating 4 mg PO Q8H PRN nausea and 04/05/23 05/29/23 Rx tablet vomiting 4 days #16 tabs oxycodone 5 mg capsule 5 mg PO Q8H PRN pain 3 days #9 caps 04/05/23 05/29/23 Rx spironolactone 150 mg PO DAILY 04/23/23 05/29/23 History bumetanide 1 mg tablet 1 mg PO Q12H 05/18/23 05/29/23 History Vitamin B 1 tab PO DAILY 05/21/23 05/29/23 History ferrous sulfate 325 mg (65 mg 325 mg PO DAILY 05/21/23 05/29/23 History iron) tablet (iron) potassium chloride 20 mEq 20 meq PO DAILY 05/29/23 05/29/23 History tablet,extended release(part/cryst) Allergies Allergy/AdvReac Type Severity Reaction Status Date / Time No Known Drug Allergies Allergy Verified 05/29/23 06:57 Exam Constitutional Vital Signs, click to edit/add: Last Vital Signs Temp 98.4 F 05/29/23 15:00 Pulse 102 H 05/29/23 16:54 Resp 16 05/29/23 15:00 BP 92/59 05/29/23 15:00 Pulse Ox 91 L 05/29/23 15:00 O2 Del Method Room Air 05/29/23 15:00 Documenting provider has reviewed patient's vital signs: yes Common normals: no apparent distress HENTX Common normals: normocephalic and head/scalp atraumatic Chest Common normals: inspection of chest normal Respiratory Auscultation: breath sounds absent; no crackles and no wheezes Cardio Common normals: regular rate, regular rhythm and no murmurs Results Labs Labs: Short CBC 05/29/23 Range/Units 07:08 WBC 12.6 H (4.0-11.0) 10^3/uL Hgb 11.6 L (14.0-18.0) g/dL Hct 33.6 L (42.0-54.0) % Plt Count 144 L (150-450) 10^3/uL BMP 05/29/23 07:08 Sodium 129 L Potassium 3.2 L Chloride 94 L Carbon Dioxide 29.0 BUN 9.0 Creatinine 0.73 Glucose 112 H Calcium 7.7 L Liver Function 05/29/23 Range/Units 07:08 Total Bilirubin 3.1 H (0.2-1.0) mg/dL Direct Bilirubin 1.3 H* (0.0-0.2) mg/dL AST 90 H (15-37) U/L ALT 49 (16-63) U/L Alkaline Phosphatase 115 (46-116) U/L Albumin 1.7 L (3.4-5.0) g/dL Assessment and Plan Assessment and Plan (1) Pleural effusion: (2) Hyperammonemia: (3) Pleural effusion on right: (4) Hjtht-9-ylaxxpwroyb deficiency: (5) Ascites: (6) COPD (chronic obstructive pulmonary disease): Plan Sinus tachycardia, hypotension, leukocytosis, altered mental status secondary to hepatic encephalopathy, deteriorating liver failure, possible ascending cholan gitis. Start IV antibiotics, blood cultures. History of liver failure and receives para and thoracentesis frequently. He had 2 this week. Could be resulting in the dehydration part still concerning for infection. Thrombocytopenia-likely secondary to the above-monitor daily Hypocalcemia-supplement Hypokalemia secondary to elevated above-supplement Severe protein Malnutrition with albumin of less than 2. This is likely result of his para and thoracentesis this. Start patient on IV albumin, one-time dose. May need to repeat. Depending on tolerability. With the severity of his altered mental status and the degree of his hyperammonemia and the deterioration in his overall condition with the leukocytosis and possible ascending cholangitis, place patient on inpatient status.
[2023-05-29] MEDS: BUDESONIDE 0.5 MG/2 ML AMPULE NEB IH (20:00)
[2023-05-29] MEDS: ALBUTEROL SULFATE 2.5 MG/3 ML VIAL NEB IH (20:00)
[2023-05-29] MEDS: PIPERACILLIN SODIUM/TAZOBACTAM 3.375 GM in 0.9 % SODIUM CHLORIDE 50 ML IV (20:31)
[2023-05-29] MEDS: FERROUS SULFATE 325 MG TABLET PO (20:46)
[2023-05-29] MEDS: BUMETANIDE 1 MG TABLET PO (20:46)
[2023-05-29] MEDS: PROSTAT 15 GM PROTEIN/100 CAL 30 ML LIQUID PACKET PO (20:46)
[2023-05-29] MEDS: POTASSIUM CHLORIDE 10 MEQ ER TABLET PO (20:46)
[2023-05-29] MEDS: RIFAXIMIN 550 MG TABLET PO (21:39)
[2023-05-29] MEDS: CALCIUM CARBONATE 500 MG (200MG ELEMENTAL) TAB CHEW PO (21:39)
[2023-05-30] VITALS (20 sets, daily range): BP systolic 96–112; BP diastolic 42–66; PULSE 82–126; RESP 16–24; TEMP 36.6–37; O2SAT 90–96
[2023-05-30] MEDS: PIPERACILLIN SODIUM/TAZOBACTAM 3.375 GM in 0.9 % SODIUM CHLORIDE 50 ML IV ×2 (01:57→17:43)
[2023-05-30] MEDS: 0.9 % SODIUM CHLORIDE 1,000 ML 75 ML IV ×2 (04:03→15:08)
[2023-05-30] MEDS: CIPROFLOXACIN IN 5 % DEXTROSE 400 MG/200 ML PIGGYBACK 200 MG IV ×2 (04:40→15:08)
[2023-05-30 05:00] LABS: Basophils Absolute Auto 0.1 10^3/uL (0.0-0.1); Basophils Percent Auto 0.7 % (0.2-2.0); Eosinophils Absolute Auto 0.3 10^3/uL (0.0-0.7); Eosinophils Percent Auto 3.2 % (0.9-7.0); Immature Granulocytes Abs Auto 0.07 10^3/uL (0.00-0.03); Immature Granulocytes Pct Auto 0.8 % (0.0-0.5); Lymphocytes Absolute Auto 1.9 10^3/uL (1.2-3.8); Lymphocytes Percent Auto 22.4 % (20.5-60.0); Mean Corpuscular HGB Conc 33.3 g/dL (29.9-35.2); Mean Corpuscular Hemoglobin 34.1 pg (25.9-34.0); Mean Corpuscular Volume 102.2 fL (80.0-94.0); Mean Platelet Volume 10.3 fL (9.5-13.5); Monocytes Absolute Auto 0.8 10^3/uL (0.3-0.8); Monocytes Percent Auto 9.7 % (1.7-12.0); Neutrophils Absolute Auto 5.3 10^3/uL (1.4-6.5); Neutrophils Percent Auto 63.2 % (43.0-75.0); Platelet Count 112 10^3/uL (150-450); Red Blood Count 3.23 10^6/uL (4.70-6.10); Red Cell Distribution Width 16.8 % (11.0-15.0); White Blood Count 8.4 10^3/uL (4.0-11.0)
[2023-05-30 05:16] LABS: Alanine Aminotransferase 39 U/L (16-63); Albumin Globulin Ratio 0.6; Albumin Level 2.3 g/dL (3.4-5.0); Alkaline Phosphatase 102 U/L (46-116); Anion Gap 4.7; Aspartate Amino Transferase 81 U/L (15-37); Bilirubin Total 4.8 mg/dL (0.2-1.0); Calcium 7.6 mg/dL (8.5-10.1); Carbon Dioxide 31.1 mmol/L (21.0-32.0); Chloride 95 mmol/L (98-107); Estimated GFR (African America >60 (>=60); Estimated GFR (Non-African Ame >60 (>=60); Globulin 3.8 g/dL; Glucose 91 mg/dL (74-106); INR 1.79; Prothrombin Time 18.4 sec (9.0-11.6); Sodium 128 mmol/L (136-145); Total Protein 6.1 g/dL (6.4-8.2)
[2023-05-30] MEDS: ALBUTEROL SULFATE 2.5 MG/3 ML VIAL NEB IH ×4 (05:17→20:00)
[2023-05-30 05:26] LABS: Potassium 2.8 mmol/L (3.5-5.1)
[2023-05-30] MEDS: CALCIUM CARBONATE 500 MG (200MG ELEMENTAL) TAB CHEW PO ×3 (05:31→21:00)
[2023-05-30] MEDS: LACTULOSE 10 GM/15 ML (237ML) SOLUTION 30 GM PO ×3 (05:31→20:58)
[2023-05-30] MEDS: RIFAXIMIN 550 MG TABLET PO ×3 (05:31→21:00)
[2023-05-30] MEDS: POTASSIUM CHLORIDE 10 MEQ ER TABLET 40 MEQ PO (06:12)
--- NOTE | 2023-05-30 07:51 | P.PN_ITS ---
Exam Constitutional Vital Signs, click to edit/add: Last Vital Signs Temp 97.8 F 05/30/23 05:36 Pulse 105 H 05/30/23 05:59 Resp 18 05/30/23 05:36 BP 109/66 05/30/23 05:36 Pulse Ox 91 L 05/30/23 05:36 O2 Del Method Room Air 05/30/23 05:36 Progress Note: Objective Labs Labs: Short CBC 05/30/23 Range/Units 04:11 WBC 8.4 (4.0-11.0) 10^3/uL Hgb 11.0 L (14.0-18.0) g/dL Hct 33.0 L (42.0-54.0) % Plt Count 112 L (150-450) 10^3/uL BMP 05/29/23 05/30/23 07:08 04:11 Sodium 129 L 128 L Potassium 3.2 L 2.8 L* Chloride 94 L 95 L Carbon Dioxide 29.0 31.1 BUN 9.0 8.0 Creatinine 0.73 0.73 Glucose 112 H 91 Calcium 7.7 L 7.6 L Liver Function 05/29/23 05/30/23 Range/Units 07:08 04:11 Total Bilirubin 3.1 H 4.8 H (0.2-1.0) mg/dL Direct Bilirubin 1.3 H* (0.0-0.2) mg/dL AST 90 H 81 H (15-37) U/L ALT 49 39 (16-63) U/L Alkaline Phosphatase 115 102 (46-116) U/L Albumin 1.7 L 2.3 L (3.4-5.0) g/dL Progress Note: A&P Assessment and Plan (1) Pleural effusion: (2) Hyperammonemia: (3) Pleural effusion on right: (4) Zapoc-3-sekmeudfjul deficiency: (5) Ascites: (6) COPD (chronic obstructive pulmonary disease): Plan Sinus tachycardia, hypotension, leukocytosis, altered mental status secondary to hepatic encephalopathy, deteriorating liver failure, possible ascending cholangitis. Start IV antibiotics, blood cultures. History of liver failure and receives para and thoracentesis frequently. He had 2 this week. Could be resulting in the dehydration part still concerning for infection. Thrombocytopenia-likely secondary to the above-monitor daily Hypocalcemia-supplement Hypokalemia secondary to elevated above-supplement Severe protein Malnutrition with albumin of less than 2. This is likely result of his para and thoracentesis this. Start patient on IV albumin, one-time dose. May need to repeat. Depending on tolerability. With the severity of his altered mental status and the degree of his hyperammonemia and the deterioration in his overall condition with the leukocytosis and possible ascending cholangitis, place patient on inpatient status.
--- NOTE | 2023-05-30 08:05 | P.PN_ITS ---
Progress Note: Subjective Subjective Interval history: Only new complaint this morning is slight cough Exam Constitutional Vital Signs, click to edit/add: Last Vital Signs Temp 97.8 F 05/30/23 05:36 Pulse 105 H 05/30/23 05:59 Resp 18 05/30/23 05:36 BP 109/66 05/30/23 05:36 Pulse Ox 91 L 05/30/23 05:36 O2 Del Method Room Air 05/30/23 05:36 Documenting provider has reviewed patient's vital signs: yes Common normals: no apparent distress HENMT Common normals: normocephalic and head/scalp atraumatic Chest Common normals: inspection of chest normal Respiratory Auscultation: breath sounds absent; no crackles and no wheezes Cardio Common normals: regular rate, regular rhythm and no murmurs GI Common normals: soft to palpation; tender (Minimal tenderness with no rebound tenderness) Progress Note: Objective Labs Labs: Short CBC 05/30/23 Range/Units 04:11 WBC 8.4 (4.0-11.0) 10^3/uL Hgb 11.0 L (14.0-18.0) g/dL Hct 33.0 L (42.0-54.0) % Plt Count 112 L (150-450) 10^3/uL BMP 05/30/23 04:11 Sodium 128 L Potassium 2.8 L* Chloride 95 L Carbon Dioxide 31.1 BUN 8.0 Creatinine 0.73 Glucose 91 Calcium 7.6 L Liver Function 05/30/23 Range/Units 04:11 Total Bilirubin 4.8 H (0.2-1.0) mg/dL AST 81 H (15-37) U/L ALT 39 (16-63) U/L Alkaline Phosphatase 102 (46-116) U/L Albumin 2.3 L (3.4-5.0) g/dL Progress Note: A&P Assessment and Plan (1) Pleural effusion: (2) Hyperammonemia: (3) Pleural effusion on right: (4) Dfjez-5-zdtjaoulyti deficiency: (5) Ascites: (6) COPD (chronic obstructive pulmonary disease): Plan Sinus tachycardia, hypotension, leukocytosis, altered mental status secondary to hepatic encephalopathy, deteriorating liver failure, possible ascending cholangitis. Continue current antibiotics, white blood cell count improved, blood cultures pending History of liver failure and receives para and thoracentesis frequently. He had 2 this week. Continue to monitor blood pressure closely, orthostatic vitals Dofisbxvoleusjvw-uldynuxuwxwf-zhlkpioi to monitor Hypocalcemia-supplement Hypokalemia secondary to elevated above-supplement Coagulopathy-1 dose of vitamin K today. Monitor daily Severe protein Malnutrition with albumin of less than 2. Repeat 1 albumin dose again today. With the severity of his altered mental status and the degree of his hyperammonemia and the deterioration in his overall condition with the leukocytosis and possible ascending cholangitis, place patient on inpatient status. ?
[2023-05-30 08:23] LABS: Adenovirus F 40/41 NOT DETECTED (NOT DETECTE); Astrovirus NOT DETECTED (NOT DETECTE); Campylobacter NOT DETECTED (NOT DETECTE); Cryptosporidium NOT DETECTED (NOT DETECTE); Cyclospora cayetanensis NOT DETECTED (NOT DETECTE); Entamoeba histolytica NOT DETECTED (NOT DETECTE); Enteroaggregative E.coli NOT DETECTED (NOT DETECTE); Enteropathogenic E.coli NOT DETECTED (NOT DETECTE); Enterotoxigenic E. coli NOT DETECTED (NOT DETECTE); Giardia lamblia NOT DETECTED (NOT DETECTE); Norovirus GI/GII NOT DETECTED (NOT DETECTE); Plesiomonas shigelloides NOT DETECTED (NOT DETECTE); Rotavirus A NOT DETECTED (NOT DETECTE); Salmonella NOT DETECTED (NOT DETECTE); Sapovirus NOT DETECTED (NOT DETECTE); Shiga-like toxin-producing E.C NOT DETECTED (NOT DETECTE); Shigella/Enteroinvasive E.coli NOT DETECTED (NOT DETECTE); Vibrio NOT DETECTED (NOT DETECTE); Vibrio cholerae NOT DETECTED (NOT DETECTE); Yersinia enterocolitica NOT DETECTED (NOT DETECTE)
[2023-05-30 08:38] LABS: Ammonia 54 umol/L (11-32)
[2023-05-30] MEDS: CHOLECALCIFEROL (VITAMIN D3) 25 MCG/1,000 UNITS TABLET PO (09:36)
[2023-05-30] MEDS: SPIRONOLACTONE 100 MG TABLET 150 MG PO (09:37)
[2023-05-30] MEDS: CETIRIZINE HCL 10 MG TABLET PO (09:37)
[2023-05-30] MEDS: POTASSIUM CHLORIDE 40 MEQ in 0.9 % SODIUM CHLORIDE 250 ML 67.5 MEQ IV (09:37)
[2023-05-30] MEDS: FOLIC ACID/VIT B6/VIT B12 TABLET 1 TAB PO (09:37)
[2023-05-30] MEDS: PROSTAT 15 GM PROTEIN/100 CAL 30 ML LIQUID PACKET PO ×2 (09:37→20:59)
[2023-05-30] MEDS: POTASSIUM CHLORIDE 10 MEQ ER TABLET 20 MEQ PO ×2 (09:38→21:00)
[2023-05-30] MEDS: PHYTONADIONE (VIT K1) 10 MG/ML AMPUL 5 MG PO (09:38)
[2023-05-30] MEDS: MONTELUKAST SODIUM 10 MG TABLET PO (09:38)
[2023-05-30] MEDS: FERROUS SULFATE 325 MG TABLET PO ×2 (09:38→21:00)
[2023-05-30] MEDS: CITALOPRAM HYDROBROMIDE 20 MG TABLET PO (09:38)
[2023-05-30] MEDS: BUMETANIDE 1 MG TABLET PO ×2 (09:38→21:00)
[2023-05-30] MEDS: FLUTICASONE PROPIONATE 50 MCG NASAL SPRAY 2 SPRAY NS (09:39)
[2023-05-30] MEDS: BUDESONIDE 0.5 MG/2 ML AMPULE NEB IH ×2 (10:19→20:00)
[2023-05-30 10:45] LABS: Potassium 3.3 mmol/L (3.5-5.1)
[2023-05-30] MEDS: VANCOMYCIN HCL 7,500 MG/150 ML BOTTLE 125 MG PO ×3 (11:36→21:04)
[2023-05-30] MEDS: METRONIDAZOLE 250 MG TABLET 500 MG PO ×3 (11:38→21:00)
[2023-05-30] MEDS: ALBUMIN HUMAN 25 GM/100 ML PREMIX IV ×2 (12:57→13:58)
[2023-05-30] MEDS: PANTOPRAZOLE SODIUM 40 MG VIAL IV (15:08)
[2023-05-31] VITALS (12 sets, daily range): BP systolic 103–117; BP diastolic 52–74; PULSE 98–120; RESP 16–20; TEMP 37–37.3; O2SAT 92–95
[2023-05-31] MEDS: PIPERACILLIN SODIUM/TAZOBACTAM 3.375 GM in 0.9 % SODIUM CHLORIDE 50 ML IV ×3 (02:07→18:15)
[2023-05-31] MEDS: CIPROFLOXACIN IN 5 % DEXTROSE 400 MG/200 ML PIGGYBACK 200 MG IV (02:08)
[2023-05-31] MEDS: ALBUTEROL SULFATE 2.5 MG/3 ML VIAL NEB IH ×2 (04:13→11:24)
[2023-05-31] MEDS: RIFAXIMIN 550 MG TABLET PO ×2 (05:39→14:24)
[2023-05-31] MEDS: METRONIDAZOLE 250 MG TABLET 500 MG PO ×3 (05:39→18:16)
[2023-05-31] MEDS: CALCIUM CARBONATE 500 MG (200MG ELEMENTAL) TAB CHEW PO ×2 (05:39→14:25)
[2023-05-31] MEDS: VANCOMYCIN HCL 7,500 MG/150 ML BOTTLE 125 MG PO ×3 (05:40→18:16)
[2023-05-31 06:08] LABS: Basophils Percent Auto 0.5 % (0.2-2.0); Eosinophils Absolute Auto 0.2 10^3/uL (0.0-0.7); Eosinophils Percent Auto 2.1 % (0.9-7.0); Hematocrit 32.2 % (42.0-54.0); Hemoglobin 10.9 g/dL (14.0-18.0); Immature Granulocytes Abs Auto 0.07 10^3/uL (0.00-0.03); Immature Granulocytes Pct Auto 0.8 % (0.0-0.5); Lymphocytes Absolute Auto 1.5 10^3/uL (1.2-3.8); Lymphocytes Percent Auto 17.8 % (20.5-60.0); Mean Corpuscular HGB Conc 33.9 g/dL (29.9-35.2); Mean Corpuscular Hemoglobin 34.2 pg (25.9-34.0); Mean Corpuscular Volume 100.9 fL (80.0-94.0); Mean Platelet Volume 10.2 fL (9.5-13.5); Monocytes Absolute Auto 0.9 10^3/uL (0.3-0.8); Monocytes Percent Auto 10.1 % (1.7-12.0); Neutrophils Absolute Auto 5.9 10^3/uL (1.4-6.5); Neutrophils Percent Auto 68.7 % (43.0-75.0); Platelet Count 113 10^3/uL (150-450); Red Blood Count 3.19 10^6/uL (4.70-6.10); Red Cell Distribution Width 16.6 % (11.0-15.0); White Blood Count 8.6 10^3/uL (4.0-11.0)
[2023-05-31 06:20] LABS: INR 1.66; Prothrombin Time 17.1 sec (9.0-11.6)
[2023-05-31 06:23] LABS: Ammonia 31 umol/L (11-32)
[2023-05-31 06:45] LABS: Alanine Aminotransferase 49 U/L (16-63); Albumin Globulin Ratio 0.7; Albumin Level 2.7 g/dL (3.4-5.0); Alkaline Phosphatase 107 U/L (46-116); Aspartate Amino Transferase 76 U/L (15-37); BUN Creatinine Ratio 9.8; Bilirubin Total 3.1 mg/dL (0.2-1.0); Calcium 7.7 mg/dL (8.5-10.1); Carbon Dioxide 29.3 mmol/L (21.0-32.0); Chloride 94 mmol/L (98-107); Estimated GFR (African America >60 (>=60); Estimated GFR (Non-African Ame >60 (>=60); Globulin 3.8 g/dL; Glucose 100 mg/dL (74-106); Potassium 3.3 mmol/L (3.5-5.1); Sodium 125 mmol/L (136-145); Total Protein 6.5 g/dL (6.4-8.2)
[2023-05-31] MEDS: CETIRIZINE HCL 10 MG TABLET PO (08:59)
[2023-05-31] MEDS: BUMETANIDE 1 MG TABLET PO (09:00)
[2023-05-31] MEDS: CHOLECALCIFEROL (VITAMIN D3) 25 MCG/1,000 UNITS TABLET PO (09:00)
[2023-05-31] MEDS: CITALOPRAM HYDROBROMIDE 20 MG TABLET PO (09:01)
[2023-05-31] MEDS: MONTELUKAST SODIUM 10 MG TABLET PO (09:02)
[2023-05-31] MEDS: FLUTICASONE PROPIONATE 50 MCG NASAL SPRAY 2 SPRAY NS (09:02)
[2023-05-31] MEDS: POTASSIUM CHLORIDE 10 MEQ ER TABLET 20 MEQ PO (09:03)
[2023-05-31] MEDS: SPIRONOLACTONE 100 MG TABLET 150 MG PO (09:04)
[2023-05-31] MEDS: LACTULOSE 10 GM/15 ML (237ML) SOLUTION 30 GM PO (09:05)
[2023-05-31] MEDS: FERROUS SULFATE 325 MG TABLET PO (09:14)
[2023-05-31] MEDS: FOLIC ACID/VIT B6/VIT B12 TABLET 1 TAB PO (09:14)
[2023-05-31] MEDS: PROSTAT 15 GM PROTEIN/100 CAL 30 ML LIQUID PACKET PO (09:14)
[2023-05-31] MEDS: 0.9 % SODIUM CHLORIDE 1,000 ML 75 ML IV (09:16)
[2023-05-31] MEDS: BUDESONIDE 0.5 MG/2 ML AMPULE NEB IH (11:00)
--- NOTE | 2023-05-31 12:18 | XR_ITS ---
[address] [address] Patient Name: KYLE ANTONY MRN: [id number] date: 1990 Sex: M Assigned Patient Location: MS Current Patient Location: MS Accession/Order Number: [id number] Exam Date: 05/31/2023 13:00 Report Date: 05/31/2023 13:33 At the request of: KERRY PEDERSON Procedure: XR chest 1V EXAMINATION: XR chest 1V HISTORY: Shortness of breath COMPARISON: Portable chest 05/27/2023 TECHNIQUE: Portable chest FINDINGS: IMPRESSION: Large right pleural effusion. The lung parenchyma is free of consolidation or infiltrate. No pneumothorax. The cardiac, mediastinal and hilar contours are normal. The visualized osseous structures exhibit no gross abnormality. Electronically authenticated by: HANS NELSON Date: 05/31/2023 13:33
--- NOTE | 2023-05-31 14:13 | PM.PN ---
Progress Note: Subjective Subjective Interval history: Patient feels worse this am. Inceased SOB and increased cough. Feels like pleural effusion starting to worsen. Vitals stable and afebrile. Ammonia improved. Still awaiting a bed at [facility]. No chest pain or palpitations. No nausea. C/o diarrhea from lactulose. Exam Constitutional Vital Signs, click to edit/add: Last Vital Signs Temp 98.6 F 05/31/23 04:48 Pulse 107 H 05/31/23 09:59 Resp 16 05/31/23 04:48 BP 109/63 05/31/23 09:00 Pulse Ox 93 L 05/31/23 11:26 O2 Del Method Room Air 05/31/23 11:26 Common normals: no apparent distress, oriented x3 and alert HENMT Common normals: normocephalic Eye Common normals: PERRL and EOMs intact bilaterally Respiratory Common normals: normal respiratory effort Auscultation: diminished lung sounds (Decreased BS on right mid and lower lung field) Cardio Common normals: regular rate, regular rhythm, no gallops, no murmurs and no rub GI Common normals: Normal to inspection, nondistended, normoactive bowel sounds present and non-tender Extremity Common normals: no pedal edema Progress Note: Objective Labs Labs: Short CBC 05/31/23 Range/Units 05:18 WBC 8.6 (4.0-11.0) 10^3/uL Hgb 10.9 L (14.0-18.0) g/dL Hct 32.2 L (42.0-54.0) % Plt Count 113 L (150-450) 10^3/uL BMP 05/31/23 05:18 Sodium 125 L Potassium 3.3 L Chloride 94 L Carbon Dioxide 29.3 BUN 8.0 Creatinine 0.82 Glucose 100 Calcium 7.7 L Liver Function 05/31/23 Range/Units 05:18 Total Bilirubin 3.1 H (0.2-1.0) mg/dL AST 76 H (15-37) U/L ALT 49 (16-63) U/L Alkaline Phosphatase 107 (46-116) U/L Albumin 2.7 L (3.4-5.0) g/dL Progress Note: A&P Assessment and Plan (1) Hepatic encephalopathy: (2) Hyperammonemia: (3) Chronic liver failure: (4) C. difficile colitis: (5) HTN (hypertension): (6) Tzisb-2-bcijfvirmai deficiency: (7) Pleural effusion: Plan Increased SOB and chest x-ray shows large pleural effusion. Patient needs to have thoracentesis. Continue lactulose and monitor labs. Continue vanco and flagyl for C. diff. Awaiting bed at [facility].
[2023-05-31] MEDS: ACETAMINOPHEN 500 MG TABLET 1000 MG PO (14:24)
--- NOTE | 2023-05-31 15:04 | PC.NURSE ---
[facility] updated on patient status. no bed at this time.
[2023-05-31] MEDS: PANTOPRAZOLE SODIUM 40 MG VIAL IV (15:09)
--- NOTE | 2023-05-31 17:57 | PC.NURSE ---
recevied bed assignment of [id number] bed 17 for patient. family informed and are at bedside
--- NOTE | 2023-05-31 18:07 | PC.NURSE ---
called report to [facility] to sobeida HASTINGS
--- NOTE | 2023-06-01 13:24 | PM.DS1 ---
DS: Providers Provider Date of admission: 05/29/23 12:15 Primary care physician: Cecil Hernandez MD DS: Diagnosis Discharge Diagnosis (1) Hepatic encephalopathy: (2) Hyperammonemia: (3) Chronic liver failure: (4) C. difficile colitis: (5) HTN (hypertension): (6) Uyanw-2-bzefexkoemo deficiency: (7) Pleural effusion: DS: Summary Hospital Course Hospital Course: Reason for admission: See ER note and H&*P for details. 33 y/o male with a history of liver faliure due to alpha-1 antitrypsin deficiency to ER with increased confusion and fatigue. Patient had thoracentesis and paracentesis at [facility] few days prior. Developed worsening confusion and fatigue. Family concerned of fluid overload and to ER. Chest x-ray showed small effusion. Ammonia elevated at 184. Discussed with specialists at [facility] and accepted for transfer but no bed and admitted. Hospital course: Resumed home medication including lactulose. Mental status improved and ammonia decreased. Patient started to develop increased cough and SOB. Lucile like filling up with fluid. Ammonia normal. Repeat chest x-ray showed large right pleural effusion. Bed available at [facility] and transferred in stable condition. Time Spent with Patient Time attestation: Total time spent providing and/or coordinating discharge services: Exam Constitutional Vital Signs, click to edit/add: Last Vital Signs Temp 99.1 F 05/31/23 14:26 Pulse 110 H 05/31/23 14:45 Resp 18 05/31/23 14:26 BP 109/63 05/31/23 14:45 Pulse Ox 95 05/31/23 14:26 O2 Del Method Room Air 05/31/23 14:26 Documenting provider has reviewed patient's vital signs: yes Common normals: no apparent distress, oriented x3 and alert HENMT Common normals: normocephalic Eye Common normals: PERRL and EOMs intact bilaterally Respiratory Common normals: normal respiratory effort and clear to auscultation bilaterally Cardio Common normals: regular rate, regular rhythm, no gallops, no murmurs and no rub GI Common normals: Normal to inspection, nondistended, normoactive bowel sounds present and non-tender Extremity Common normals: no pedal edema DS: Data Data Completed and Pending Labs on day of discharge: Preliminary micro results at discharge 05/29/23 13:27 - Preliminary Blood 05/29/23 13:18 Blood Culture Result 1 - Preliminary Blood Discharge Plan Discharge Disposition: [facility] Hospital Condition: Fair Discharge Date/Time: 05/31/23 18:44 Discharge Location: [facility]
== END 2023-05-31 18:44 | disposition short-term general hospital (02) | DRG 423 ==
LOC: ER 09:55 → MS 10:55
PROVIDERS: Internal Medicine; Admitting Provider Family Medicine; Emergency Provider Emergency Medicine; PCP Family Medicine; Visit Provider Family Medicine
DX: E72.20 Disorder of urea cycle metabolism, unspecified (principal); K72.10 Chronic hepatic failure without coma; K76.82 Hepatic encephalopathy; E86.0 Dehydration; J90 Pleural effusion, not elsewhere classified; E88.01 Alpha-1-antitrypsin deficiency; R18.8 Other ascites; J44.9 Chronic obstructive pulmonary disease, unspecified; D69.6 Thrombocytopenia, unspecified; E83.51 Hypocalcemia; E87.6 Hypokalemia; E43 Unspecified severe protein-calorie malnutrition; R00.0 Tachycardia, unspecified; D68.9 Coagulation defect, unspecified; A04.72 Enterocolitis due to Clostridium difficile, not specified as recurrent; I10 Essential (primary) hypertension; K21.9 Gastro-esophageal reflux disease without esophagitis; H40.9 Unspecified glaucoma; F84.0 Autistic disorder; R07.9 Chest pain, unspecified; Z68.41 Body mass index [BMI] 40.0-44.9, adult; Z90.49 Acquired absence of other specified parts of digestive tract; Z79.899 Other long term (current) drug therapy; Z98.890 Other specified postprocedural states
CPT/HCPCS: 36415; 36569; 49083; 71045; 80048; 80053; 80076; 82140; 82150; 83605; 83690; 84132; 84484; 85025; 85610; 87040; 87493; 87507; 87635; 87811; 93005; 94640; 94667; 94668; 94761; 96361; 96365; 96366; 96367; 96368; 96375; 96376; 99285; C1887; J3480; P9047; U0003

== ENCOUNTER 2023-06-10 01:41 | Emergency (ER) | payer OTHER, SELFPAY ==
[2023-06-10 01:44] VITALS: BP 98/67; PULSE 118; RESP 18; TEMP 37.2; O2SAT 93; BMI 43.5
--- NOTE | 2023-06-10 02:14 | ED.SOB1 ---
HPI - SOB/Dyspnea General Chief Complaint: Shortness of Breath/Dyspnea Stated Complaint: WEAKNESS COUGH Time Seen by Provider: 06/10/23 02:05 Source: patient Mode of arrival: Wheelchair Limitations: no limitations History of Present Illness HPI Narrative: history of alpha 1 anti trypsin deficiency . Was in patient at [facility] last week. States last friday and friday he had thoracentesis and paracentesis. Discharged home 4 days ago with a cough. Feels cough has worsened. Scheduled for paracentesis again here at [facility] on Friday . Tonight presents complaining of increasing cough, gen. weakness and feeling short of breath. states during his week at [facility] he was evaluated for future transplant. . no fever or nausea MD elicited complaint: shortness of breath and cough Related Data Home Medications Medication Instructions Recorded Confirmed atenolol 50 mg tablet 50 mg PO DAILY 03/19/23 06/10/23 brimonidine 1 drp ophthalmic (eye) BID 03/19/23 06/10/23 cetirizine 10 mg capsule (Zyrtec) 10 mg PO DAILY 03/19/23 06/10/23 cholecalciferol (vitamin D3) 25 25 mcg PO DAILY 03/19/23 06/10/23 mcg (1,000 unit) capsule citalopram 20 mg tablet 20 mg PO DAILY 03/19/23 06/10/23 fluticasone 250 mcg-salmeterol 50 1 inh inhalation BID 03/19/23 06/10/23 mcg/dose blistr powdr for inhalation (Advair Diskus) fluticasone propionate 50 2 spray intranasal DAILY 03/19/23 06/10/23 mcg/actuation nasal spray,suspension latanoprostene bunod 0.024 % eye 1 drp ophthalmic (eye) QPM 03/19/23 06/10/23 drops montelukast 10 mg tablet 10 mg PO DAILY 03/19/23 06/10/23 (Singulair) omeprazole 20 mg tablet,delayed 20 mg PO DAILY 03/19/23 06/10/23 release spironolactone 50 mg PO DAILY 04/23/23 06/10/23 bumetanide 1 mg tablet 1 mg PO Q12H 05/18/23 06/10/23 Vitamin B 1 tab PO DAILY 05/21/23 06/10/23 potassium chloride 20 mEq 20 meq PO DAILY 05/29/23 06/10/23 tablet,extended release(part/cryst) benzonatate 200 mg capsule 200 mg PO DAILY 06/10/23 06/10/23 lactulose 10 gram/15 mL oral 20 g PO DAILY 06/10/23 06/10/23 solution torsemide 20 mg tablet 20 mg PO DAILY 06/10/23 06/10/23 vancomycin 125 mg capsule 125 mg PO DAILY 06/10/23 06/10/23 vitamin E (dl, acetate) 450 mg 450 mg PO DAILY 06/10/23 06/10/23 (1,000 unit) capsule zinc sulfate 50 mg zinc (220 mg) 50 mg PO DAILY 06/10/23 06/10/23 capsule Allergies Allergy/AdvReac Type Severity Reaction Status Date / Time No Known Drug Allergies Allergy Verified 05/29/23 06:57 Review of Systems ROS Status of ROS 10 or more systems reviewed and unremarkable except as noted in history and below Cardiovascular Reports: chest pain Respiratory Reports: shortness of breath and cough [facility] Medical History (Updated 06/10/23 @ 05:26 by Hudson Bryant MD) Acute hypokalemia ?E87.6 - Hypokalemia (ICD-10) Nhgfv-3-vqwomlmrxvt deficiency ?E88.01 - Qcyrg-5-lymuyxexvwe deficiency (ICD-10) Ascites ?R18.8 - Other ascites (ICD-10) Chronic liver failure ?K72.10 - Chronic hepatic failure without coma (ICD-10) COPD (chronic obstructive pulmonary disease) ?J44.9 - Chronic obstructive pulmonary disease, unspecified (ICD-10) Dyspnea ?R06.00 - Dyspnea, unspecified (ICD-10) Fracture of rib ?S22.39XA - Fracture of one rib, unspecified side, initial encounter for closed fracture (ICD-10) Gastroenteritis ?K52.9 - Noninfective gastroenteritis and colitis, unspecified (ICD-10) GERD (gastroesophageal reflux disease) ?K21.9 - Gastro-esophageal reflux disease without esophagitis (ICD-10) Glaucoma ?H40.9 - Unspecified glaucoma (ICD-10) Hepatic encephalopathy ?K76.82 - Hepatic encephalopathy (ICD-10) HTN (hypertension) ?I10 - Essential (primary) hypertension (ICD-10) Hyperammonemia ?E72.20 - Disorder of urea cycle metabolism, unspecified (ICD-10) Pleural effusion ?J90 - Pleural effusion, not elsewhere classified (ICD-10) Pleural effusion on right ?J90 - Pleural effusion, not elsewhere classified (ICD-10) Vomiting ?R11.10 - Vomiting, unspecified (ICD-10) Surgical History History of abdominal paracentesis ?Z98.890 - Other specified postprocedural states (ICD-10) History of cholecystectomy ?Z90.49 - Acquired absence of other specified parts of digestive tract (ICD-10) History of liver biopsy ?Z98.890 - Other specified postprocedural states (ICD-10) S/P thoracentesis ?Z98.890 - Other specified postprocedural states (ICD-10) Social History Smoking status: Never smoker Exam Constitutional Vital Signs, click to edit/add: Last Vital Signs Temp 98.9 F 06/10/23 01:44 Pulse 110 H 06/10/23 05:17 Resp 18 06/10/23 05:17 BP 122/51 06/10/23 05:17 Pulse Ox 97 06/10/23 05:17 O2 Del Method Room Air 06/10/23 05:17 Common normals: no apparent distress (appears chronically ill), oriented x3, no limitations, healthy appearing, alert and well nourished Eye Common normals: EOMs intact bilaterally and conjunctivae normal Respiratory Common normals: no retractions, no use of accessory muscles and clear to auscultation bilaterally Cardio Rate: tachycardic GI Other: distended and soft. nontender Extremity Common normals: normal to inspection and full ROM Neuro Common normals: oriented x3, CN's II-XII intact bilaterally, moves all extremities, no focal motor deficits and no sensory deficits noted Psych Appearance: grossly normal Course Vital Signs Vital signs: Vital Signs Temperature 98.9 F 06/10/23 01:44 Pulse Rate 118 H 06/10/23 01:44 Respiratory Rate 18 06/10/23 01:44 Blood Pressure 98/67 06/10/23 01:44 Pulse Oximetry 93 L 06/10/23 01:44 Oxygen Delivery Method Room Air 06/10/23 01:44 Temperature 98.9 F 06/10/23 01:44 Pulse Rate 110 H 06/10/23 05:17 Respiratory Rate 18 06/10/23 05:17 Blood Pressure 122/51 06/10/23 05:17 Pulse Oximetry 97 06/10/23 05:17 Oxygen Delivery Method Room Air 06/10/23 05:17 MDM - SOB/Dyspnea MDM Narrative Medical decision making narrative: patient has alpha 1 anti trypsin deficiency . Has cirrhosis with ascites and right pleural effusion. one week ago at [facility] had thoracentesis and paracentesis. Now presents complaining of cough and dyspnea. Is scheduled for paracentesis in 2 days. His abdomen is distended but not tense. His cxray demonstrates about 75% right pleural effusion similar to past cxrays. His pulse is 93% on RA. Labs demonstrated WBC elevated at 15.5. Mild elevation of LFTs similar to the past. UA clear. No clinical evidence of bacterial infection. Does have a cough. Discussed with patient and his mother and they prefer to see Dr Burch whether than go back to [facility]. Discussed with Dr Burch and he would like the patient to call the office this AM and they will set him up for thoracentesis Lab Data Labs: Lab Results 06/10/23 06/10/23 Range/Units 01:55 04:44 WBC 15.5 H (4.0-11.0) 10^3/uL RBC 3.09 L (4.70-6.10) 10^6/uL Hgb 10.6 L (14.0-18.0) g/dL Hct 31.1 L (42.0-54.0) % MCV 100.6 H (80.0-94.0) fL MCH 34.3 H (25.9-34.0) pg MCHC 34.1 (29.9-35.2) g/dL RDW 16.8 H (11.0-15.0) % Plt Count 118 L (150-450) 10^3/uL MPV 10.6 (9.5-13.5) fL Seg Neuts % (Manual) 83.0 Lymphocytes % (Manual) 9.0 L (20.5-60.0) % Atypical Lymphs % (Man) 2.0 % Monocytes % (Manual) 4.0 (1.7-12.0) % Eosinophils % (Manual) 2.0 (0.9-7.0) % Basophils % (Manual) 0.0 L (0.2-2.0) % Neutrophils # (Manual) 12.86 H (1.4-6.5) 10^3/uL Lymphocytes # (Manual) 1.39 (1.20-3.80) 10^3/uL Abs Atypical Lymphs Man 0.3 Monocytes # (Manual) 0.62 (0.30-0.80) 10^3/uL Eosinophils # (Manual) 0.31 (0.00-0.70) 10^3/uL Basophils # (Manual) 0.00 (0.00-0.10) 10^3/uL Toxic Granulation 1+ Sodium 130 L (136-145) mmol/L Potassium 3.2 L (3.5-5.1) mmol/L Chloride 98 (98-107) mmol/L Carbon Dioxide 25.9 (21.0-32.0) mmol/L Anion Gap 9.3 BUN 7.0 (7.0-18.0) mg/dL Creatinine 0.82 (0.70-1.30) mg/dL Est GFR ( Amer) >60 (>=60) Est GFR (Non-Af Amer) >60 (>=60) BUN/Creatinine Ratio 8.5 Glucose 111 H (74-106) mg/dL Calcium 7.6 L (8.5-10.1) mg/dL Total Bilirubin 2.6 H (0.2-1.0) mg/dL AST 93 H (15-37) U/L ALT 66 H (16-63) U/L Alkaline Phosphatase 81 (46-116) U/L Total Protein 6.7 (6.4-8.2) g/dL Albumin 2.4 L (3.4-5.0) g/dL Globulin 4.3 g/dL Albumin/Globulin Ratio 0.6 Urine Color Yellow (YELLOW) Urine Clarity Clear (CLEAR) Urine pH 5.5 (5.0-9.0) Ur Specific [place] 1.020 (1.005-1.025) Urine Protein Negative (NEG/TRACE) mg/dL Urine Glucose (UA) Negative (NEGATIVE) mg/dL Urine Ketones Negative (NEGATIVE) mg/dL Urine Occult Blood Negative (NEGATIVE) Urine Nitrite Negative (NEGATIVE) Urine Bilirubin Negative (NEGATIVE) Urine Urobilinogen 0.2 (0.2-1.0) EU/dL Ur Leukocyte Esterase Negative (NEGATIVE) Discharge Plan Discharge Chief Complaint: Shortness of Breath/Dyspnea Clinical Impression: AAT (cunmu-2-lngqfdvdadm) deficiency, Pleural effusion on right Patient Disposition: Home, Self-Care Prescriptions / Home Meds: No Action bumetanide 1 mg tablet 1 mg PO Q12H Vitamin B 1 tab PO DAILY torsemide 20 mg tablet 20 mg PO DAILY vitamin E (dl, acetate) 450 mg (1,000 unit) capsule 450 mg PO DAILY zinc sulfate 50 mg zinc (220 mg) capsule 50 mg PO DAILY lactulose 10 gram/15 mL solution 20 g PO DAILY benzonatate 200 mg capsule 200 mg PO DAILY vancomycin 125 mg capsule 125 mg PO DAILY fluticasone propion-salmeterol [Advair Diskus] 250-50 mcg/dose blister with device 1 inh inhalation BID atenolol 50 mg tablet 50 mg PO DAILY Patient Comments: has been holding due to low blood pressure brimonidine 1 drp ophthalmic (eye) BID Patient Comments: ou citalopram 20 mg tablet 20 mg PO DAILY fluticasone propionate 50 mcg/actuation spray,suspension 2 spray intranasal DAILY Rx Instructions: administer into each nostril latanoprostene bunod 0.024 % drops 1 drp ophthalmic (eye) QPM Patient Comments: ou omeprazole 20 mg tablet,delayed release (DR/EC) 20 mg PO DAILY cholecalciferol (vitamin D3) 25 mcg (1,000 unit) capsule 25 mcg PO DAILY Zyrtec 10 mg capsule 10 mg PO DAILY montelukast [Singulair] 10 mg tablet 10 mg PO DAILY spironolactone 50 mg PO DAILY potassium chloride 20 mEq tablet,ER particles/crystals 20 meq PO DAILY Instructions: Pleural Effusion (DC), Alpha-1 Antitrypsin Deficiency (DC) Additional Instructions: call Dr Burch's office later this AM to set up appointment for thoracentesis Stand Alone Forms: Portal Instructions Referrals: Cecil Hernandez MD [Primary Care Provider] - 1 week
--- NOTE | 2023-06-10 02:20 | XR_ITS ---
The [address] [address] Patient Name: KYLE ANTONY MRN: [id number] date: 1990 Sex: M Assigned Patient Location: ER Current Patient Location: Accession/Order Number: [id number] Exam Date: 06/10/2023 02:30 Report Date: 06/10/2023 03:08 At the request of: YESIKA MCNALLY Procedure: XR chest 2V EXAM: XR chest 2V HISTORY: Acute dyspnea with cough. COMPARISON: Chest x-ray, 05/31/2023. TECHNIQUE: Frontal and lateral chest x-rays. FINDINGS: Cardiac size, mediastinal contour and pulmonary vascularity are within normal limits. There is complete opacification of the right hemithorax below the hilar level, nonspecific. Streaky right perihilar atelectasis is seen adjacent to the elevated diaphragm. A new small right apical pneumothorax cannot be excluded, measuring 17 mm. The left lung is grossly clear. XR/XR chest 2V IMPRESSION: 1. Nonspecific complete opacification of the lower right hemithorax, not significantly changed. This could reflect marked asymmetric elevation of the right diaphragm, pleural effusion, underlying atelectasis or possible infiltrate. 2. New small right apical pneumothorax cannot be excluded. Follow-up upright expiratory chest radiograph or chest CT scan could further evaluate. Electronically authenticated by: GEOVANNY MUNIZ Date: 06/10/2023 03:08
[2023-06-10 02:32] LABS: Hematocrit 31.1 % (42.0-54.0); Hemoglobin 10.6 g/dL (14.0-18.0); Mean Corpuscular HGB Conc 34.1 g/dL (29.9-35.2); Mean Corpuscular Hemoglobin 34.3 pg (25.9-34.0); Mean Corpuscular Volume 100.6 fL (80.0-94.0); Mean Platelet Volume 10.6 fL (9.5-13.5); Platelet Count 118 10^3/uL (150-450); Red Blood Count 3.09 10^6/uL (4.70-6.10); Red Cell Distribution Width 16.8 % (11.0-15.0); White Blood Count 15.5 10^3/uL (4.0-11.0)
[2023-06-10 02:44] LABS: Alanine Aminotransferase 66 U/L (16-63); Albumin Globulin Ratio 0.6; Albumin Level 2.4 g/dL (3.4-5.0); Alkaline Phosphatase 81 U/L (46-116); Anion Gap 9.3; Aspartate Amino Transferase 93 U/L (15-37); BUN Creatinine Ratio 8.5; Bilirubin Total 2.6 mg/dL (0.2-1.0); Calcium 7.6 mg/dL (8.5-10.1); Carbon Dioxide 25.9 mmol/L (21.0-32.0); Chloride 98 mmol/L (98-107); Estimated GFR (African America >60 (>=60); Estimated GFR (Non-African Ame >60 (>=60); Globulin 4.3 g/dL; Glucose 111 mg/dL (74-106); Potassium 3.2 mmol/L (3.5-5.1); Sodium 130 mmol/L (136-145); Total Protein 6.7 g/dL (6.4-8.2)
[2023-06-10] MEDS: ALBUTEROL SULFATE 2.5 MG/3 ML VIAL NEB IH (02:44)
[2023-06-10 02:45] VITALS: PULSE 117; RESP 24; O2SAT 99
[2023-06-10 02:45] LABS: Atypical Lymphocytes Abs Man 0.3; Eosinophils Absolute Manual 0.31 10^3/uL (0.00-0.70); Lymphocytes Absolute Manual 1.39 10^3/uL (1.20-3.80); Monocytes Absolute Manual 0.62 10^3/uL (0.30-0.80); Segmented Neut Absolute Manual 12.86 10^3/uL (1.4-6.5)
[2023-06-10] MEDS: METHYLPREDNISOLONE SOD SUCC PF 125 MG/2 ML VIAL IVP (02:45)
[2023-06-10 02:46] LABS: Toxic Granulation 1+
[2023-06-10 02:54] VITALS: PULSE 115; RESP 20; O2SAT 100
[2023-06-10] MEDS: ACETAMINOPHEN 500 MG TABLET 1000 MG PO (04:15)
[2023-06-10 04:50] LABS: Bilirubin Urine NEGATIVE (NEGATIVE); Blood Urine NEGATIVE (NEGATIVE); Clarity Urine CLEAR (CLEAR); Color Urine YELLOW (YELLOW); Glucose Urine UA NEGATIVE (NEGATIVE); Ketones Urine NEGATIVE (NEGATIVE); Leukocyte Esterase Urine NEGATIVE (NEGATIVE); Nitrite Urine NEGATIVE (NEGATIVE); Protein Urine NEGATIVE (NEG/TRACE); Urobilinogen Urine 0.2 EU/dL (0.2-1.0); pH Urine 5.5 (5.0-9.0)
[2023-06-10 05:01] LABS: Urine Microscopic Indicated NO
[2023-06-10 05:17] VITALS: BP 122/51; PULSE 110; RESP 18; O2SAT 97
== END 2023-06-10 05:46 | disposition home or self-care (01) ==
PROVIDERS: Emergency Provider Internal Medicine; PCP Family Medicine
DX: J90 Pleural effusion, not elsewhere classified (principal); E88.01 Alpha-1-antitrypsin deficiency; K72.10 Chronic hepatic failure without coma; J44.9 Chronic obstructive pulmonary disease, unspecified; K21.9 Gastro-esophageal reflux disease without esophagitis; H40.9 Unspecified glaucoma; I10 Essential (primary) hypertension; Z90.49 Acquired absence of other specified parts of digestive tract; Z98.890 Other specified postprocedural states; Z79.899 Other long term (current) drug therapy
CPT/HCPCS: 36415; 71046; 80053; 81003; 85027; 94640; 96374; 99284; J2930

== ENCOUNTER 2023-06-11 09:33 | Day surgery (SDC) | payer OTHER, SELFPAY ==
[2023-06-11] VITALS (7 sets, daily range): BP systolic 99–114; BP diastolic 47–67; PULSE 114; O2SAT 97
--- NOTE | 2023-06-11 09:43 | US_ITS ---
[address] [address] Patient Name: KYLE ANTONY MRN: [id number] date: 1990 Sex: M Assigned Patient Location: US Current Patient Location: US Accession/Order Number: [id number] Exam Date: 06/11/2023 09:45 Report Date: 06/11/2023 11:12 At the request of: NON-STAFF PHYSICIAN Procedure: US paracentesis abd w/image EXAMINATION: US paracentesis abd w/image HISTORY: Ascites COMPARISON: No relevant comparison available. DESCRIPTION: Informed consent was obtained. The patient was prepped and draped in standard sterile fashion. Ultrasound-guided paracentesis was performed in the usual sterile manner using 1% Xylocaine. FINDINGS: SITE: Right lower quadrant NEEDLE: Paracentesis 8 Fr. catheter over 18 gauge needle MEDICATION: 10 cc 1% buffered Xylocaine for local anesthesia FLUID DESCRIPTION: Medial mid yellow, clear FLUID VOLUME: 4.4 L COMPLICATIONS: None LABORATORY: None ordered OTHER: Negative. US/US paracentesis abd w/image IMPRESSION: Technically successful paracentesis Electronically authenticated by: HANS SMITH Date: 06/11/2023 11:12
--- NOTE | 2023-06-11 11:34 | PC.NURSE ---
[address] with clear yellow fluid removed. Total of 4.4 liters removed and pt tolerated well. 1039 Paracentesis drain removed.
== END 2023-06-11 10:59 ==
PROVIDERS: Radiology Diagnostic Radiology; PCP Family Medicine
DX: R18.8 Other ascites (principal); J95.811 Postprocedural pneumothorax
CPT/HCPCS: 49083; 71046

== ENCOUNTER 2023-06-11 09:34 | Outpatient (OUT) | payer OTHER, SELFPAY ==
--- NOTE | 2023-06-11 09:52 | XR_ITS ---
[address] [address] Patient Name: KYLE ANTONY MRN: [id number] date: 1990 Sex: M Assigned Patient Location: [facility] Current Patient Location: Accession/Order Number: [id number] Exam Date: 06/11/2023 10:55 Report Date: 06/11/2023 11:14 At the request of: NAYAN ARORA Procedure: XR chest 2V EXAM: XR chest 2V HISTORY: Postprocedural Pneumothorax J95.811 COMPARISON: 06/10/2023 TECHNIQUE: AP view of the chest. Findings/impression: No significant change from prior exam. Stable right apical pneumothorax. Cardiomegaly. Right pleural effusion. Right elevated hemidiaphragm. Electronically authenticated by: RONALD MYERS Date: 06/11/2023 11:14
== END 2023-06-11 09:35 | disposition home or self-care (01) ==
PROVIDERS: PCP Family Medicine; Visit Provider Internal Medicine
DX: J95.811 Postprocedural pneumothorax (principal)
CPT/HCPCS: 71046

== ENCOUNTER 2023-06-12 19:05 | Emergency (ER) | payer OTHER, SELFPAY ==
[2023-06-12] VITALS (24 sets, daily range): BP systolic 83–112; BP diastolic 33–91; PULSE 103–113; RESP 12–25; TEMP 37.2; O2SAT 98; BMI 40.8
--- NOTE | 2023-06-12 19:30 | ECG_ITS ---
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
--- NOTE | 2023-06-12 19:30 | XR_ITS ---
The [address] [address] Patient Name: KYLE ANTONY MRN: [id number] date: 1990 Sex: M Assigned Patient Location: ER Current Patient Location: ER Accession/Order Number: [id number] Exam Date: 06/12/2023 20:10 Report Date: 06/12/2023 20:29 At the request of: GENESIS LIAO Procedure: XR acute abdomen series EXAM: XR acute abdomen series TECHNIQUE: Frontal view chest. Supine and upright views of the abdomen. HISTORY: pleural effusion, hypotension COMPARISON: 06/11/2023 FINDINGS: The heart is unremarkable for size. Stable atelectasis of the right lung base. Chronic elevation right hemidiaphragm. Left lung is clear. No evidence of bowel obstruction. Moderate amount retained stool within the colon. Surgical clips in the right upper quadrant of the abdomen. No free intraperitoneal air. XR/XR acute abdomen series IMPRESSION: Moderate retained stool within the colon which may suggest constipation. Chronic elevation right hemidiaphragm. Electronically authenticated by: ERASMO BARNETT Date: 06/12/2023 20:29
--- NOTE | 2023-06-12 19:33 | ED.GENADUL1 ---
HPI - General Adult General Chief complaint: Weakness Stated complaint: TRANSPLANT LIST LIVER-HYPOTENSION Time Seen by Provider: 06/12/23 19:13 Source: patient Mode of arrival: Wheelchair Limitations: no limitations History of Present Illness HPI narrative: Patient told us that he has been getting low BP readings at home throughout the day. He denied any other symptoms. He has chronic non-productive cough, abdominal distension, frequent urination due to use of diuretics and takes lactulose to prevent hyperammonemia, which leads to diarrheal stools. 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 He has a virtual appointment with the on June 18. He had paracentesis with Dr Burch last week and had greater than 4Liters of fluid removed. He saw Dr Bryant around 2am on 06/10/23 and was found to have significant pleural fluid/effusion and when Kiersten saw him the next day, the patient had an additional 4.4L removed by paracentesis but they decided against performing thoracentesis after repat CXR showed it was stabilized , the patient told me. He denies any fever, chills, abdominal pain, flank pain, urinary symptoms or blood in urine or stool. . Related Data Home Medications Medication Instructions Recorded Confirmed atenolol 50 mg tablet 50 mg PO DAILY 03/19/23 06/11/23 brimonidine 1 drp ophthalmic (eye) BID 03/19/23 06/11/23 cetirizine 10 mg capsule (Zyrtec) 10 mg PO DAILY 03/19/23 06/11/23 cholecalciferol (vitamin D3) 25 25 mcg PO DAILY 03/19/23 06/11/23 mcg (1,000 unit) capsule citalopram 20 mg tablet 20 mg PO DAILY 03/19/23 06/11/23 fluticasone 250 mcg-salmeterol 50 1 inh inhalation BID 03/19/23 06/11/23 mcg/dose blistr powdr for inhalation (Advair Diskus) fluticasone propionate 50 2 spray intranasal DAILY 03/19/23 06/11/23 mcg/actuation nasal spray,suspension latanoprostene bunod 0.024 % eye 1 drp ophthalmic (eye) QPM 03/19/23 06/11/23 drops montelukast 10 mg tablet 10 mg PO DAILY 03/19/23 06/11/23 (Singulair) omeprazole 20 mg tablet,delayed 20 mg PO DAILY 03/19/23 06/11/23 release spironolactone 50 mg PO DAILY 04/23/23 06/11/23 bumetanide 1 mg tablet 1 mg PO Q12H 05/18/23 06/11/23 Vitamin B 1 tab PO DAILY 05/21/23 06/11/23 potassium chloride 20 mEq 20 meq PO DAILY 05/29/23 06/11/23 tablet,extended release(part/cryst) benzonatate 200 mg capsule 200 mg PO TID PRN cough 06/10/23 06/11/23 lactulose 10 gram/15 mL oral 20 g PO .qod 06/10/23 06/11/23 solution torsemide 20 mg tablet 20 mg PO DAILY 06/10/23 06/11/23 vancomycin 125 mg capsule 125 mg PO .four times a day 06/10/23 06/11/23 vitamin E (dl, acetate) 450 mg 450 mg PO DAILY 06/10/23 06/11/23 (1,000 unit) capsule zinc sulfate 50 mg zinc (220 mg) 50 mg PO DAILY 06/10/23 06/11/23 capsule ondansetron 4 mg disintegrating 4 mg PO TID-QID PRN nausea and 06/11/23 06/11/23 tablet vomiting Allergies Allergy/AdvReac Type Severity Reaction Status Date / Time No Known Drug Allergies Allergy Verified 06/12/23 19:25 [facility] Medical History (Updated 06/12/23 @ 21:10 by Genesis Liao) Acute hypokalemia ?E87.6 - Hypokalemia (ICD-10) Jiadr-3-rdjibyazioj deficiency ?E88.01 - Zffkr-5-bvxpzxoditx deficiency (ICD-10) Ascites ?R18.8 - Other ascites (ICD-10) Chronic liver failure ?K72.10 - Chronic hepatic failure without coma (ICD-10) COPD (chronic obstructive pulmonary disease) ?J44.9 - Chronic obstructive pulmonary disease, unspecified (ICD-10) Dyspnea ?R06.00 - Dyspnea, unspecified (ICD-10) Fracture of rib ?S22.39XA - Fracture of one rib, unspecified side, initial encounter for closed fracture (ICD-10) Gastroenteritis ?K52.9 - Noninfective gastroenteritis and colitis, unspecified (ICD-10) GERD (gastroesophageal reflux disease) ?K21.9 - Gastro-esophageal reflux disease without esophagitis (ICD-10) Glaucoma ?H40.9 - Unspecified glaucoma (ICD-10) Hepatic encephalopathy ?K76.82 - Hepatic encephalopathy (ICD-10) HTN (hypertension) ?I10 - Essential (primary) hypertension (ICD-10) Hyperammonemia ?E72.20 - Disorder of urea cycle metabolism, unspecified (ICD-10) Pleural effusion ?J90 - Pleural effusion, not elsewhere classified (ICD-10) Pleural effusion on right ?J90 - Pleural effusion, not elsewhere classified (ICD-10) Vomiting ?R11.10 - Vomiting, unspecified (ICD-10) Surgical History History of abdominal paracentesis ?Z98.890 - Other specified postprocedural states (ICD-10) History of cholecystectomy ?Z90.49 - Acquired absence of other specified parts of digestive tract (ICD-10) History of liver biopsy ?Z98.890 - Other specified postprocedural states (ICD-10) S/P thoracentesis ?Z98.890 - Other specified postprocedural states (ICD-10) Social History Smoking status: Never smoker Exam Narrative Exam Narrative: Nurses notes and vital signs reviewed and patient is not hypoxic. afebrile Normotensive 104 systolic per machine. General: Well-appearing and in no apparent distress. Skin: Warm, dry, mild pallor noted. No rash. Multiple areas of ecchymosis to both extremities. Eye: Pupils are equal, round and EOMI. No scleral icterus. Ears, Nose, Mouth, and Throat: Oral mucosa is moist Cardiovascular: Tachcyardia. Respiratory: No accessory muscle use or respiratory distress. Lungs are clear to auscultation, no wheezing, rales or rhonchi Back: No midline thoracic or lumbar vertebral tenderness. RIGHT CVA tenderness Musculoskeletal: normal ROM, no calf or popliteal tenderness, trace lower extremity edema/swelling GI: Abdomen is soft but distended. Normal bowel sounds. No tenderness to palpation. No rebound, guarding, or rigidity noted. Neurological: A&O x4. No cranial nerve dysfunction observed. No truncal ataxia. Moves all extremities. Sensation intact. Psychiatric: Cooperative and interactive. Normal mood and affect. Constitutional Vital Signs, click to edit/add: Last Vital Signs Temp 99 F 06/12/23 19:14 Pulse 107 H 06/12/23 20:40 Resp 22 06/12/23 20:40 BP 102/38 L 06/12/23 20:49 Pulse Ox 98 06/12/23 19:14 O2 Del Method Room Air 06/12/23 19:14 Course Vital Signs Vital signs: Vital Signs Temperature 99 F 06/12/23 19:14 Pulse Rate 113 H 06/12/23 19:14 Respiratory Rate 20 06/12/23 19:14 Blood Pressure 104/91 06/12/23 19:14 Pulse Oximetry 98 06/12/23 19:14 Oxygen Delivery Method Room Air 06/12/23 19:14 Temperature 99 F 06/12/23 19:14 Pulse Rate 107 H 06/12/23 20:40 Respiratory Rate 22 06/12/23 20:40 Blood Pressure 102/38 L 06/12/23 20:49 Pulse Oximetry 98 06/12/23 19:14 Oxygen Delivery Method Room Air 06/12/23 19:14 Medical Decision Making MDM Narrative Medical decision making narrative: The patient had blood drawn and sent for testing. Urine also ordered to be sent. XRays abd and chest obtained. Patient has mild decrease in K+ from 3.2 to 2.8 today - he admits to drinking [place] and free water. His Na remains 130. BUN increased from 7 to 13 from 06/10 to today. Cr and Cl consistent. LFts improved today. Radiologist's reports on xrays are detailed below. Patient given oral potassium - he requested the effervescent slurry. He was also given 500mL NS IVF bolus as his BP was low on manual check and on repeated machine checks during his ED stay. Patient has virtual appointment 06/18/23 and I encouraged him to keep that appointment. Lab Data Lab results reviewed: Yes I reviewed the patient's lab results Labs: Lab Results 06/12/23 Range/Units 19:40 WBC 11.4 H (4.0-11.0) 10^3/uL RBC 2.96 L (4.70-6.10) 10^6/uL Hgb 10.0 L (14.0-18.0) g/dL Hct 30.2 L (42.0-54.0) % MCV 102.0 H (80.0-94.0) fL MCH 33.8 (25.9-34.0) pg MCHC 33.1 (29.9-35.2) g/dL RDW 16.7 H (11.0-15.0) % Plt Count 97 L (150-450) 10^3/uL MPV 10.1 (9.5-13.5) fL Neut % (Auto) 73.9 (43.0-75.0) % Lymph % (Auto) 14.2 L (20.5-60.0) % Simpson % (Auto) 10.7 (1.7-12.0) % Eos % (Auto) 0.4 L (0.9-7.0) % Baso % (Auto) 0.1 L (0.2-2.0) % Neut # (Auto) 8.4 H (1.4-6.5) 10^3/uL Lymph # (Auto) 1.6 (1.2-3.8) 10^3/uL Simpson # (Auto) 1.2 H (0.3-0.8) 10^3/uL Eos # (Auto) 0.0 (0.0-0.7) 10^3/uL Baso # (Auto) 0.0 (0.0-0.1) 10^3/uL Abs Immat Gran (auto) 0.08 H (0.00-0.03) 10^3/uL Imm/Tot Granulo (auto) 0.7 H (0.0-0.5) % Sodium 130 L (136-145) mmol/L Potassium 2.8 L* (3.5-5.1) mmol/L Chloride 94 L (98-107) mmol/L Carbon Dioxide 31.2 (21.0-32.0) mmol/L Anion Gap 7.6 BUN 13.0 (7.0-18.0) mg/dL Creatinine 0.87 (0.70-1.30) mg/dL Est GFR ( Amer) >60 (>=60) Est GFR (Non-Af Amer) >60 (>=60) BUN/Creatinine Ratio 14.9 Glucose 111 H (74-106) mg/dL Calcium 7.4 L (8.5-10.1) mg/dL Total Bilirubin 2.1 H (0.2-1.0) mg/dL AST 63 H (15-37) U/L ALT 67 H (16-63) U/L Alkaline Phosphatase 81 (46-116) U/L Total Protein 6.0 L (6.4-8.2) g/dL Albumin 2.2 L (3.4-5.0) g/dL Globulin 3.8 g/dL Albumin/Globulin Ratio 0.6 Imaging Data XR chest and abdomen: Radiologist's impression: Patient Name: KYLE ANTONY MRN: [id number] date: 1990 Sex: M Assigned Patient Location: ER Current Patient Location: ER Accession/Order Number: [id number] Exam Date: 06/12/2023 20:10 Report Date: 06/12/2023 20:29 At the request of: GENESIS LIAO Procedure: XR acute abdomen series EXAM: XR acute abdomen series TECHNIQUE: Frontal view chest. Supine and upright views of the abdomen. HISTORY: pleural effusion, hypotension COMPARISON: 06/11/2023 FINDINGS: The heart is unremarkable for size. Stable atelectasis of the right lung base. Chronic elevation right hemidiaphragm. Left lung is clear. No evidence of bowel obstruction. Moderate amount retained stool within the colon. Surgical clips in the right upper quadrant of the abdomen. No free intraperitoneal air. IMPRESSION: Moderate retained stool within the colon which may suggest constipation. Chronic elevation right hemidiaphragm. Electronically authenticated by: ERASMO BARNETT Date: 06/12/2023 20:29 ECG Data Attestation: ?I have reviewed the pertinent ECG results. Interpretation: EKG interpretation: Emergency Department physician interpretation. Sinus tachycardia at 103bpm. LVH. no ST segment elevation or depression. Discharge Plan Discharge Chief Complaint: Weakness Clinical Impression: AAT (hgtqf-2-zlcsiokclht) deficiency, Acute hypotension, Acute hypokalemia Patient Disposition: Home, Self-Care Time of Disposition Decision: 21:12 Prescriptions / Home Meds: No Action bumetanide 1 mg tablet 1 mg PO Q12H Vitamin B 1 tab PO DAILY ondansetron 4 mg tablet,disintegrating 4 mg PO TID-QID PRN (Reason: nausea and vomiting) torsemide 20 mg tablet 20 mg PO DAILY vitamin E (dl, acetate) 450 mg (1,000 unit) capsule 450 mg PO DAILY zinc sulfate 50 mg zinc (220 mg) capsule 50 mg PO DAILY lactulose 10 gram/15 mL solution 20 g PO .qod benzonatate 200 mg capsule 200 mg PO TID PRN (Reason: cough) vancomycin 125 mg capsule 125 mg PO .four times a day fluticasone propion-salmeterol [Advair Diskus] 250-50 mcg/dose blister with device 1 inh inhalation BID atenolol 50 mg tablet 50 mg PO DAILY Patient Comments: has been holding due to low blood pressure brimonidine 1 drp ophthalmic (eye) BID Patient Comments: ou citalopram 20 mg tablet 20 mg PO DAILY fluticasone propionate 50 mcg/actuation spray,suspension 2 spray intranasal DAILY Rx Instructions: administer into each nostril latanoprostene bunod 0.024 % drops 1 drp ophthalmic (eye) QPM Patient Comments: ou omeprazole 20 mg tablet,delayed release (DR/EC) 20 mg PO DAILY cholecalciferol (vitamin D3) 25 mcg (1,000 unit) capsule 25 mcg PO DAILY Zyrtec 10 mg capsule 10 mg PO DAILY montelukast [Singulair] 10 mg tablet 10 mg PO DAILY spironolactone 50 mg PO DAILY potassium chloride 20 mEq tablet,ER particles/crystals 20 meq PO DAILY Instructions: Hypokalemia (ED), Alpha-1 Antitrypsin Deficiency (DC), Hypotension (ED) Stand Alone Forms: Portal Instructions Referrals: Cecil Hernandez MD [Primary Care Provider] - 1 week
--- NOTE | 2023-06-12 19:54 | PC.NURSE ---
patient having low bp and general weakness since paracentesis yesterday. mother states patient is unable to ambulate to bathroom. patient denies any respiratory problems or worsening edema. ekg obtained.
[2023-06-12 19:57] LABS: Basophils Percent Auto 0.1 % (0.2-2.0); Eosinophils Percent Auto 0.4 % (0.9-7.0); Hematocrit 30.2 % (42.0-54.0); Immature Granulocytes Abs Auto 0.08 10^3/uL (0.00-0.03); Immature Granulocytes Pct Auto 0.7 % (0.0-0.5); Lymphocytes Absolute Auto 1.6 10^3/uL (1.2-3.8); Lymphocytes Percent Auto 14.2 % (20.5-60.0); Mean Corpuscular HGB Conc 33.1 g/dL (29.9-35.2); Mean Corpuscular Hemoglobin 33.8 pg (25.9-34.0); Mean Platelet Volume 10.1 fL (9.5-13.5); Monocytes Absolute Auto 1.2 10^3/uL (0.3-0.8); Monocytes Percent Auto 10.7 % (1.7-12.0); Neutrophils Absolute Auto 8.4 10^3/uL (1.4-6.5); Neutrophils Percent Auto 73.9 % (43.0-75.0); Platelet Count 97 10^3/uL (150-450); Red Blood Count 2.96 10^6/uL (4.70-6.10); Red Cell Distribution Width 16.7 % (11.0-15.0); White Blood Count 11.4 10^3/uL (4.0-11.0)
[2023-06-12 20:21] LABS: Alanine Aminotransferase 67 U/L (16-63); Albumin Globulin Ratio 0.6; Albumin Level 2.2 g/dL (3.4-5.0); Alkaline Phosphatase 81 U/L (46-116); Anion Gap 7.6; Aspartate Amino Transferase 63 U/L (15-37); BUN Creatinine Ratio 14.9; Bilirubin Total 2.1 mg/dL (0.2-1.0); Calcium 7.4 mg/dL (8.5-10.1); Carbon Dioxide 31.2 mmol/L (21.0-32.0); Chloride 94 mmol/L (98-107); Estimated GFR (African America >60 (>=60); Estimated GFR (Non-African Ame >60 (>=60); Globulin 3.8 g/dL; Glucose 111 mg/dL (74-106); Sodium 130 mmol/L (136-145)
[2023-06-12 20:37] LABS: Potassium 2.8 mmol/L (3.5-5.1)
[2023-06-12] MEDS: 0.9 % SODIUM CHLORIDE 500 ML 1000 ML IV (21:17)
[2023-06-12] MEDS: POTASSIUM BICARBONATE/CIT 25 MEQ TABLET EFF 50 MEQ PO (21:17)
== END 2023-06-12 22:23 | disposition home or self-care (01) ==
PROVIDERS: Emergency Provider Emergency Medicine; PCP Family Medicine
DX: E87.6 Hypokalemia (principal); I95.9 Hypotension, unspecified; E88.01 Alpha-1-antitrypsin deficiency; K72.10 Chronic hepatic failure without coma; J44.9 Chronic obstructive pulmonary disease, unspecified; K21.9 Gastro-esophageal reflux disease without esophagitis; H40.9 Unspecified glaucoma; I10 Essential (primary) hypertension; Z90.49 Acquired absence of other specified parts of digestive tract; Z98.890 Other specified postprocedural states; Z79.899 Other long term (current) drug therapy; Z76.82 Awaiting organ transplant status
CPT/HCPCS: 36415; 74022; 80053; 85025; 93005; 99285; C1887

== ENCOUNTER 2023-06-14 18:14 | Emergency (ER) | payer OTHER, SELFPAY ==
[2023-06-14] VITALS (30 sets, daily range): BP systolic 92–131; BP diastolic 33–74; PULSE 105–113; RESP 15–18; TEMP 37.3; O2SAT 93–98; BMI 42.1
--- NOTE | 2023-06-14 19:03 | ECG_ITS ---
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
[2023-06-14 19:23] LABS: Alanine Aminotransferase 68 U/L (16-63); Albumin Globulin Ratio 0.6; Albumin Level 2.4 g/dL (3.4-5.0); Alkaline Phosphatase 90 U/L (46-116); Anion Gap 5.8; Aspartate Amino Transferase 80 U/L (15-37); Bilirubin Total 3.9 mg/dL (0.2-1.0); Calcium 8.1 mg/dL (8.5-10.1); Carbon Dioxide 33.6 mmol/L (21.0-32.0); Chloride 95 mmol/L (98-107); Estimated GFR (African America >60 (>=60); Estimated GFR (Non-African Ame >60 (>=60); Globulin 4.1 g/dL; Glucose 100 mg/dL (74-106); Potassium 3.4 mmol/L (3.5-5.1); Sodium 131 mmol/L (136-145); Total Protein 6.5 g/dL (6.4-8.2)
[2023-06-14 19:25] LABS: Troponin I High Sensitivity 34.2 pg/mL (4.0-76.1)
[2023-06-14 19:33] LABS: Ammonia 65 umol/L (11-32)
[2023-06-14 19:42] LABS: Basophils Percent Auto 0.3 % (0.2-2.0); Eosinophils Absolute Auto 0.2 10^3/uL (0.0-0.7); Eosinophils Percent Auto 1.4 % (0.9-7.0); Hematocrit 32.8 % (42.0-54.0); Hemoglobin 11.4 g/dL (14.0-18.0); Immature Granulocytes Abs Auto 0.07 10^3/uL (0.00-0.03); Immature Granulocytes Pct Auto 0.6 % (0.0-0.5); Lymphocytes Absolute Auto 1.9 10^3/uL (1.2-3.8); Lymphocytes Percent Auto 16.4 % (20.5-60.0); Mean Corpuscular HGB Conc 34.8 g/dL (29.9-35.2); Mean Corpuscular Hemoglobin 34.3 pg (25.9-34.0); Mean Corpuscular Volume 98.8 fL (80.0-94.0); Mean Platelet Volume 10.4 fL (9.5-13.5); Monocytes Absolute Auto 1.4 10^3/uL (0.3-0.8); Monocytes Percent Auto 12.2 % (1.7-12.0); Neutrophils Absolute Auto 7.8 10^3/uL (1.4-6.5); Neutrophils Percent Auto 69.1 % (43.0-75.0); Platelet Count 95 10^3/uL (150-450); Red Blood Count 3.32 10^6/uL (4.70-6.10); White Blood Count 11.3 10^3/uL (4.0-11.0)
[2023-06-14 19:49] LABS: Bilirubin Urine NEGATIVE (NEGATIVE); Blood Urine NEGATIVE (NEGATIVE); Clarity Urine CLEAR (CLEAR); Color Urine LT. YELLOW (YELLOW); Glucose Urine UA NEGATIVE (NEGATIVE); Ketones Urine NEGATIVE (NEGATIVE); Leukocyte Esterase Urine NEGATIVE (NEGATIVE); Nitrite Urine NEGATIVE (NEGATIVE); Protein Urine NEGATIVE (NEG/TRACE); Specific Gravity Urine <=1.005 (1.005-1.025); Urobilinogen Urine 0.2 EU/dL (0.2-1.0)
[2023-06-14 19:58] LABS: Urine Microscopic Indicated NO
--- NOTE | 2023-06-14 20:29 | XR_ITS ---
The [address] [address] Patient Name: KYLE ANTONY MRN: [id number] date: 1990 Sex: M Assigned Patient Location: ER Current Patient Location: ER Accession/Order Number: [id number] Exam Date: 06/14/2023 20:50 Report Date: 06/14/2023 21:31 At the request of: YESIKA MCNALLY Procedure: XR chest 2V EXAMINATION: XR chest 2V, , 06/14/2023 8:50 PM EDT INDICATION: weakness HISTORY: Ordering Provider Reason for Exam: weakness Technologist Note: Additional: COMPARISON: None. TECHNIQUE: Chest x-ray: Two views. FINDINGS: Stable mild enlarged cardiac silhouette is seen. No definite pneumothorax is seen. Large right pleural effusion with adjacent consolidation is likely seen. XR/XR chest 2V IMPRESSION: Large right pleural effusion with adjacent consolidation is likely seen. This finding can be better evaluated with chest CT imaging, as clinically indicated. Electronically authenticated by: BERTA HUTCHISON Date: 06/14/2023 21:31
--- NOTE | 2023-06-14 20:29 | CT_ITS ---
[address] [address] Patient Name: KYLE ANTONY MRN: [id number] date: 1990 Sex: M Assigned Patient Location: ER Current Patient Location: ER Accession/Order Number: [id number] Exam Date: 06/14/2023 20:50 Report Date: 06/14/2023 21:20 At the request of: YESIKA MCNALLY Procedure: CT head/brain wo con EXAMINATION: CT head/brain wo con, , 06/14/2023 8:50 PM EDT INDICATION: confusion HISTORY: Ordering Provider Reason for Exam: confusion Technologist Note: Additional: COMPARISON: None. TECHNIQUE: CT scan of the head was performed without IV contrast. CT dose reduction technique was used, including Automated Exposure Control. FINDINGS: Ventricles and sulci are normal in size and configuration. No extra-axial collection. No intracranial hemorrhage. No mass effect or edema. No CT evidence of large territorial infarction. Subtle thickening of the visualized left maxillary sinus is seen. Mastoids are clear. Calvarium is unremarkable. CT/CT head/brain wo con IMPRESSION: No intracranial hemorrhage or mass effect. Mucosal thickening left maxillary sinus. Electronically authenticated by: BERTA HUTCHISON Date: 06/14/2023 21:20
--- NOTE | 2023-06-14 20:44 | ED_ITS ---
HPI - Weakness General Chief complaint: Weakness Stated complaint: DELIRIOUS Time Seen by Provider: 06/14/23 19:03 Source: patient Mode of arrival: Wheelchair Limitations: no limitations History of Present Illness HPI Narrative: history of cirrhosis , ascites, pleural effusion and alpha 1 antitrypsin deficiency. Today comes in complaining of feeling weak and confused. Mother states he was confused and asking her to turn his eye glasses on. He thought they were his phone. He was sitting on the couch and asking her to take him home. At that time he also had a headache and nausea. She gave him zofran. He only has mild nausea now and the headache is nearly gone. She states when he got up to walk to the bathroom he was wobbly and she and her had to hold him up. No fever. No chest pain or complaint of shortness of breath. Seen yesterday by Dr Hernandez and started on medication to help raise his BP. Did have his weekly paracentesis this past week. Abdomen is a little sore but not painful. He states he is less confused at this time. He takes lactulose daily and mother states he is compliant Complaint: Reports generalized weakness Onset (ago): hour(s) Related Data Home Medications Medication Instructions Recorded Confirmed atenolol 50 mg tablet 50 mg PO DAILY 03/19/23 06/16/23 brimonidine 1 drp ophthalmic (eye) BID 03/19/23 06/16/23 cetirizine 10 mg capsule (Zyrtec) 10 mg PO DAILY 03/19/23 06/16/23 cholecalciferol (vitamin D3) 25 25 mcg PO DAILY 03/19/23 06/16/23 mcg (1,000 unit) capsule citalopram 20 mg tablet 20 mg PO DAILY 03/19/23 06/16/23 fluticasone 250 mcg-salmeterol 50 1 inh inhalation BID 03/19/23 06/16/23 mcg/dose blistr powdr for inhalation (Advair Diskus) fluticasone propionate 50 2 spray intranasal DAILY 03/19/23 06/16/23 mcg/actuation nasal spray,suspension latanoprostene bunod 0.024 % eye 1 drp ophthalmic (eye) QPM 03/19/23 06/16/23 drops montelukast 10 mg tablet 10 mg PO DAILY 03/19/23 06/16/23 (Singulair) omeprazole 20 mg tablet,delayed 20 mg PO DAILY 03/19/23 06/16/23 release spironolactone 50 mg PO DAILY 04/23/23 06/16/23 bumetanide 1 mg tablet 1 mg PO Q12H 05/18/23 06/16/23 Vitamin B 1 tab PO DAILY 05/21/23 06/16/23 potassium chloride 20 mEq 20 meq PO DAILY 05/29/23 06/16/23 tablet,extended release(part/cryst) benzonatate 200 mg capsule 200 mg PO TID PRN cough 06/10/23 06/16/23 lactulose 10 gram/15 mL oral 20 g PO .qod 06/10/23 06/16/23 solution torsemide 20 mg tablet 40 mg PO DAILY 06/10/23 06/16/23 vitamin E (dl, acetate) 450 mg 450 mg PO DAILY 06/10/23 06/16/23 (1,000 unit) capsule zinc sulfate 50 mg zinc (220 mg) 50 mg PO DAILY 06/10/23 06/16/23 capsule ondansetron 4 mg disintegrating 4 mg PO TID-QID PRN nausea and 06/11/23 06/16/23 tablet vomiting fludrocortisone 0.1 mg tablet 0.1 mg PO BID 06/14/23 06/16/23 Allergies Allergy/AdvReac Type Severity Reaction Status Date / Time No Known Drug Allergies Allergy Verified 06/16/23 10:44 Review of Systems ROS Status of ROS 10 or more systems reviewed and unremarkable except as noted in history and below [facility] Medical History (Updated 06/16/23 @ 13:45 by Avery Estrada MD) Acute hypokalemia ?E87.6 - Hypokalemia (ICD-10) Wwitm-7-cxroqxwhfne deficiency ?E88.01 - Kngva-0-sjvwmkaykcb deficiency (ICD-10) Ascites ?R18.8 - Other ascites (ICD-10) Chronic liver failure ?K72.10 - Chronic hepatic failure without coma (ICD-10) COPD (chronic obstructive pulmonary disease) ?J44.9 - Chronic obstructive pulmonary disease, unspecified (ICD-10) Dyspnea ?R06.00 - Dyspnea, unspecified (ICD-10) Fracture of rib ?S22.39XA - Fracture of one rib, unspecified side, initial encounter for closed fracture (ICD-10) Gastroenteritis ?K52.9 - Noninfective gastroenteritis and colitis, unspecified (ICD-10) GERD (gastroesophageal reflux disease) ?K21.9 - Gastro-esophageal reflux disease without esophagitis (ICD-10) Glaucoma ?H40.9 - Unspecified glaucoma (ICD-10) Hepatic encephalopathy ?K76.82 - Hepatic encephalopathy (ICD-10) HTN (hypertension) ?I10 - Essential (primary) hypertension (ICD-10) Hyperammonemia ?E72.20 - Disorder of urea cycle metabolism, unspecified (ICD-10) Pleural effusion ?J90 - Pleural effusion, not elsewhere classified (ICD-10) Pleural effusion on right ?J90 - Pleural effusion, not elsewhere classified (ICD-10) Vomiting ?R11.10 - Vomiting, unspecified (ICD-10) Surgical History History of abdominal paracentesis ?Z98.890 - Other specified postprocedural states (ICD-10) History of cholecystectomy ?Z90.49 - Acquired absence of other specified parts of digestive tract (ICD- 10) History of liver biopsy ?Z98.890 - Other specified postprocedural states (ICD-10) S/P thoracentesis ?Z98.890 - Other specified postprocedural states (ICD-10) Family History (Updated 06/16/23 @ 16:00 by Jimena Bashir LPN) Mother Family history of CHF (congestive heart failure) Family history of hypertension Family history of stroke Grandmother Family history of cancer Family history of diabetes mellitus Family history of hypertension Family history of stroke Grandfather Family history of diabetes mellitus Family history of hypertension Family history of myocardial infarction Father Family history of hypertension Social History (Updated 06/16/23 @ 16:02 by Jimena Bashir LPN) Smoking status: Never smoker Second hand tobacco smoke exposure: No Non-prescribed substance use: denies use Known occupational exposures/hazards: No Highest level of school completed/degree received: high school graduate Do you want help with school or training: No Are you now , , , , never or living with a partner: never In a typical week, how many times do you talk on the telephone with family, friends, or neighbors: 3 or more times per week How often do you get together with friends or relatives: 3 or more times per w [place] How often do you attend bahai or zoroastrian services: never Do you belong to any clubs or organizations such as bahai groups unions, [employer] or athletic groups, or school groups: no Total score: 1 Score interpretation: A score of less than or equal to 1 indicates the most socially isolated. Little interest or pleasure in doing things: not at all Feeling down, depressed, or hopeless: not at all Feel stressed/tense/nervous/anxious/difficulty sleeping: not at all Due to disability, difficulty making decisions: No Exam Constitutional Vital Signs, click to edit/add: Last Vital Signs Temp 99.1 F 06/14/23 18:19 Pulse 106 H 06/14/23 20:50 Resp 15 06/14/23 19:20 BP 105/60 06/14/23 23:28 Pulse Ox 95 06/14/23 21:53 O2 Del Method Room Air 06/14/23 18:19 Common normals: no apparent distress and oriented x3 Eye Common normals: EOMs intact bilaterally and conjunctivae normal Respiratory Common normals: normal respiratory effort, no retractions, no use of accessory muscles and clear to auscultation bilaterally Cardio Common normals: S1 normal heart sound and S2 normal heart sound GI Other: distended but soft and nontender Extremity Common normals: normal to inspection and full ROM Neuro Common normals: oriented x3, CN's II-XII intact bilaterally, moves all extremities, no focal motor deficits and no sensory deficits noted Psych Appearance: grossly normal Course Vital Signs Vital signs: Vital Signs Temperature 99.1 F 06/14/23 18:19 Pulse Rate 110 H 06/14/23 18:19 Respiratory Rate 18 06/14/23 18:19 Blood Pressure 106/60 06/14/23 18:19 Pulse Oximetry 94 L 06/14/23 18:19 Oxygen Delivery Method Room Air 06/14/23 18:19 Temperature 99.1 F 06/14/23 18:19 Pulse Rate 106 H 06/14/23 20:50 Respiratory Rate 15 06/14/23 19:20 Blood Pressure 105/60 06/14/23 23:28 Pulse Oximetry 95 06/14/23 21:53 Oxygen Delivery Method Room Air 06/14/23 18:19 MDM - Weakness MDM Narrative Medical decision making narrative: patient well known to the department. history of alpha 1 antitrypsin deficiency. Known cirrhosis with ascites and right pleural effusion. was seen yesterday by Dr Hernandez and started on Fludrocortisone for hypotension. Today at home his mother states he was confused and was asking her to turn his eyeglasses on thinking they were his phone. Also asking to go home when he was home. Presents here in the department and no longer has these symptoms. Did have headache at home but this resolved. His exam here is at his baseline. RA pulse ox 95%. He was able to ambulate from the bathroom to his bed without assistance. CT brain without acute findings. CT chest with right pleural effusion and compressive atelectasis . No pneumonia. No findings of infection. unclear why he had symptoms at home. May have been hypotensive at home. There was never any focal extremity weakness or numbness or speech problem. Gave patient and his mother the option of contacting the assistant plant control operator hospitalist for admission or possibly transfer to another hospital as he is also well known at [facility]. They preferred to go home. His ammonia level is elevated at 65. It is improved from 184 05/29/23. He is compliant with lactulose and does have loose stools. Discharged to follow up with Dr Hernandez in a couple of days Lab Data Labs: Lab Results 06/14/23 06/14/23 Range/Units 19:00 19:36 WBC 11.3 H (4.0-11.0) 10^3/uL RBC 3.32 L (4.70-6.10) 10^6/uL Hgb 11.4 L (14.0-18.0) g/dL Hct 32.8 L (42.0-54.0) % MCV 98.8 H (80.0-94.0) fL MCH 34.3 H (25.9-34.0) pg MCHC 34.8 (29.9-35.2) g/dL RDW 16.0 H (11.0-15.0) % Plt Count 95 L (150-450) 10^3/uL MPV 10.4 (9.5-13.5) fL Neut % (Auto) 69.1 (43.0-75.0) % Lymph % (Auto) 16.4 L (20.5-60.0) % [place] % (Auto) 12.2 H (1.7-12.0) % Eos % (Auto) 1.4 (0.9-7.0) % Baso % (Auto) 0.3 (0.2-2.0) % Neut # (Auto) 7.8 H (1.4-6.5) 10^3/uL Lymph # (Auto) 1.9 (1.2-3.8) 10^3/uL [place] # (Auto) 1.4 H (0.3-0.8) 10^3/uL Eos # (Auto) 0.2 (0.0-0.7) 10^3/uL Baso # (Auto) 0.0 (0.0-0.1) 10^3/uL Abs Immat Gran (auto) 0.07 H (0.00-0.03) 10^3/uL Imm/Tot Granulo (auto) 0.6 H (0.0-0.5) % Sodium 131 L (136-145) mmol/L Potassium 3.4 L (3.5-5.1) mmol/L Chloride 95 L (98-107) mmol/L Carbon Dioxide 33.6 H (21.0-32.0) mmol/L Anion Gap 5.8 BUN 15.0 (7.0-18.0) mg/dL Creatinine 0.75 (0.70-1.30) mg/dL Est GFR ( Amer) >60 (>=60) Est GFR (Non-Af Amer) >60 (>=60) BUN/Creatinine Ratio 20.0 Glucose 100 (74-106) mg/dL Calcium 8.1 L (8.5-10.1) mg/dL Magnesium 2.1 (1.8-2.4) mg/dL Total Bilirubin 3.9 H (0.2-1.0) mg/dL AST 80 H (15-37) U/L ALT 68 H (16-63) U/L Alkaline Phosphatase 90 (46-116) U/L Ammonia 65 H* (11-32) umol/L Troponin I High Sens 34.2 (4.0-76.1) pg/mL Total Protein 6.5 (6.4-8.2) g/dL Albumin 2.4 L (3.4-5.0) g/dL Globulin 4.1 g/dL Albumin/Globulin Ratio 0.6 Urine Color Lt. yellow (YELLOW) Urine Clarity Clear (CLEAR) Urine pH 6.0 (5.0-9.0) Ur Specific [place] <=1.005 A (1.005-1.025) Urine Protein Negative (NEG/TRACE) mg/dL Urine Glucose (UA) Negative (NEGATIVE) mg/dL Urine Ketones Negative (NEGATIVE) mg/dL Urine Occult Blood Negative (NEGATIVE) Urine Nitrite Negative (NEGATIVE) Urine Bilirubin Negative (NEGATIVE) Urine Urobilinogen 0.2 (0.2-1.0) EU/dL Ur Leukocyte Esterase Negative (NEGATIVE) Discharge Plan Discharge Chief Complaint: Weakness Clinical Impression: Weakness Patient Disposition: Home, Self-Care Prescriptions / Home Meds: No Action bumetanide 1 mg tablet 1 mg PO Q12H Vitamin B 1 tab PO DAILY ondansetron 4 mg tablet,disintegrating 4 mg PO TID-QID PRN (Reason: nausea and vomiting) torsemide 20 mg tablet 40 mg PO DAILY vitamin E (dl, acetate) 450 mg (1,000 unit) capsule 450 mg PO DAILY zinc sulfate 50 mg zinc (220 mg) capsule 50 mg PO DAILY lactulose 10 gram/15 mL solution 20 g PO .qod benzonatate 200 mg capsule 200 mg PO TID PRN (Reason: cough) fluticasone propion-salmeterol [Advair Diskus] 250-50 mcg/dose blister with device 1 inh inhalation BID atenolol 50 mg tablet 50 mg PO DAILY Patient Comments: has been holding due to low blood pressure brimonidine 1 drp ophthalmic (eye) BID Patient Comments: ou citalopram 20 mg tablet 20 mg PO DAILY fluticasone propionate 50 mcg/actuation spray,suspension 2 spray intranasal DAILY Rx Instructions: administer into each nostril latanoprostene bunod 0.024 % drops 1 drp ophthalmic (eye) QPM Patient Comments: ou omeprazole 20 mg tablet,delayed release (DR/EC) 20 mg PO DAILY cholecalciferol (vitamin D3) 25 mcg (1,000 unit) capsule 25 mcg PO DAILY Zyrtec 10 mg capsule 10 mg PO DAILY montelukast [Singulair] 10 mg tablet 10 mg PO DAILY spironolactone 50 mg PO DAILY potassium chloride 20 mEq tablet,ER particles/crystals 20 meq PO DAILY fludrocortisone 0.1 mg tablet 0.1 mg PO BID Instructions: Weakness (ED) Additional Instructions: follow up with Dr Hernandez in 2 days Stand Alone Forms: Portal Instructions Referrals: Cecil Hernandez MD [Primary Care Provider] - 1 week Discharge Date/Time: 06/14/23 23:57
[2023-06-14 20:47] LABS: Magnesium 2.1 mg/dL (1.8-2.4)
--- NOTE | 2023-06-14 21:42 | CT_ITS ---
[address] [address] Patient Name: KYLE ANTONY MRN: [id number] date: 1990 Sex: M Assigned Patient Location: ER Current Patient Location: Accession/Order Number: [id number] Exam Date: 06/14/2023 21:57 Report Date: 06/14/2023 22:31 At the request of: YESIKA MCNALLY Procedure: CT chest wo con EXAM: CT chest wo con TECHNIQUE: Axial CT images were obtained of the chest without intravenous contrast administration. Sagittal and coronal reformatted images were also obtained. Dose reduction techniques were achieved by using automated exposure control and/or adjustment of mA and/or kV according to patient size and/or use of iterative reconstruction technique. HISTORY: ? pneumonia COMPARISON: 02/11/2023 FINDINGS: Neck and Axilla: No lower neck or axillary lymphadenopathy. Mediastinum and Cindi: No hilar or mediastinal lymphadenopathy. The esophagus is grossly unremarkable without dilatation or gross mass lesion. Heart and Major Vessels: The heart appears unremarkable for size without pericardial effusion. The aorta and central pulmonary arteries are unremarkable for size. Lung Ram: Patchy consolidation posteriorly within the right upper lobe. Complete consolidation of the right middle lobe and partial consolidation of the right lower lobe. Pleural Spaces: Large right-sided pleural effusion. Upper Abdomen: Cirrhotic liver. Moderate ascites in the upper abdomen. The spleen is enlarged. Chest Wall: Multiple old healed an incompletely healed rib fractures. CT/CT chest wo con IMPRESSION: Large right-sided pleural effusion with compressive and dependent atelectasis of the right upper lobe and right middle lobe and right lower lobe. Cirrhosis of liver, ascites and splenomegaly, incompletely visualized. Electronically authenticated by: ERASMO BARNETT Date: 06/14/2023 22:31
== END 2023-06-14 23:57 | disposition home or self-care (01) ==
PROVIDERS: Emergency Medicine; Emergency Provider Internal Medicine; PCP Family Medicine
DX: R53.1 Weakness (principal); E72.20 Disorder of urea cycle metabolism, unspecified; E88.01 Alpha-1-antitrypsin deficiency; K72.10 Chronic hepatic failure without coma; J44.9 Chronic obstructive pulmonary disease, unspecified; K21.9 Gastro-esophageal reflux disease without esophagitis; H40.9 Unspecified glaucoma; I10 Essential (primary) hypertension; Z90.49 Acquired absence of other specified parts of digestive tract; Z98.890 Other specified postprocedural states; Z79.899 Other long term (current) drug therapy
CPT/HCPCS: 36415; 70450; 71046; 71250; 80053; 81003; 82140; 83735; 84484; 85025; 93005; 99285

== ENCOUNTER 2023-06-16 10:30 | Inpatient (IN) | payer OTHER, SELFPAY ==
[2023-06-16] VITALS (25 sets, daily range): BP systolic 73–106; BP diastolic 25–58; PULSE 95–110; RESP 9–21; TEMP 36.4–36.8; O2SAT 88–95; BMI 337.9; BMI 19.7
--- NOTE | 2023-06-16 10:54 | ECG_ITS ---
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
--- NOTE | 2023-06-16 10:55 | ED.GENADUL1 ---
HPI - General Adult General Chief complaint: Altered Mental Status Stated complaint: ALTERED MENTAL STATUS Time Seen by Provider: 06/16/23 10:51 Source: family Source information: mOTHER- Olesya Meadows Mode of arrival: Wheelchair Limitations: no limitations History of Present Illness HPI narrative: Patient is a 33-year-old male who is presenting to the Emergency Room today with chief complaint of diffuse abdominal pain, headache, teeth pain, myalgia, arthralgia, Abdominal swelling, intermittent cough, shortness of breath, intermittent delirium/confusion since early this morning. Patient with the bed at approximately midnight last night, that he's been up since 2 AM with mother. Mother is at bedside, excellent source of history. Patient has underlying autism. Patient has alpha-1 antitrypsin deficiency the foot to liver failure. Patient was just placed on a liver transplant list last Friday by [facility]. 2 weeks ago patient was at the [facility] and had multitude of tests and was determined that he was placed on the transplant list. Patient 3?4 weeks ago was admitted at [facility] to PCP Dr. Hernandez. Patient has also seen Dr. Yuen for paracentesis several times in the past. Patient is also seen Dr. Burch, patient has known fluid in the right lung. Patient was initially seen and evaluated at Dr. Hernandez office today. Patient was hypotensive. With patient's multitude of complaints, patient was sent to the Emergency Room for evaluation. Patient has had multiple paracentesis done in the past other thinks he may need another one. No acute onset of obvious infection at this time. No fever. . All systems are negative except as noted/marked. All systems reviewed and otherwise negative. . Nurses note and vital signs reviewed and patient is not hypoxic. General: The patient appears Not well, patient appears ill, slightly jaundiced, pale, patient looks he does not feel well, not toxic.. Patient is resting uncomfortably on cart. Patient is not toxic, Slightly lethargic, not listless Skin: Warm, dry, mild pallor noted, Mild jaundice,. There is no rash noted. No petechiae, purpura. Head: Normocephalic, atraumatic Eye: Normal conjunctiva, no drainage, EOMI. PERRL Ears, Nose, Mouth, and Throat: oral mucosa is moist. Nares patent. Mouth without vesicles. Cardiovascular: Regular Rate and Rhythm, no murmur, gallop, rub Respiratory: Patient is in no distress, Decreased breath sounds No obvious wheezing, crackles or rales noted; on the right, equal breath sounds to the left with no wheezing, crackles or rales.no accessory muscle use, lungs are clear to auscultation, no wheezing, rales or rhonchi Back: non-tender, no CVA tenderness bilaterally to percussion. No CT LS midline pain GI: soft, no tenderness to palpation, no masses appreciated. No rebound, guarding, or rigidity noted. No flank pain bilateral, Mild distention, no fluid wave, not firm or rigidity or tympanic, patient's mother thinks abdomen is slightly firmer on the right side compared to what it normally is. Obese, Musculoskeletal: Patient has full range of motion of all of the extremities, no motor, sensory, or focal neurological deficits Neurological: A&O x3, normal speech Psychiatric: Cooperative Related Data Home Medications Medication Instructions Recorded Confirmed atenolol 50 mg tablet 50 mg PO DAILY 03/19/23 06/16/23 brimonidine 1 drp ophthalmic (eye) BID 03/19/23 06/16/23 cetirizine 10 mg capsule (Zyrtec) 10 mg PO DAILY 03/19/23 06/16/23 cholecalciferol (vitamin D3) 25 25 mcg PO DAILY 03/19/23 06/16/23 mcg (1,000 unit) capsule citalopram 20 mg tablet 20 mg PO DAILY 03/19/23 06/16/23 fluticasone 250 mcg-salmeterol 50 1 inh inhalation BID 03/19/23 06/16/23 mcg/dose blistr powdr for inhalation (Advair Diskus) fluticasone propionate 50 2 spray intranasal DAILY 03/19/23 06/16/23 mcg/actuation nasal spray,suspension latanoprostene bunod 0.024 % eye 1 drp ophthalmic (eye) QPM 03/19/23 06/16/23 drops montelukast 10 mg tablet 10 mg PO DAILY 03/19/23 06/16/23 (Singulair) omeprazole 20 mg tablet,delayed 20 mg PO DAILY 03/19/23 06/16/23 release spironolactone 50 mg PO DAILY 04/23/23 06/16/23 bumetanide 1 mg tablet 1 mg PO Q12H 05/18/23 06/16/23 Vitamin B 1 tab PO DAILY 05/21/23 06/16/23 potassium chloride 20 mEq 20 meq PO DAILY 05/29/23 06/16/23 tablet,extended release(part/cryst) benzonatate 200 mg capsule 200 mg PO TID PRN cough 06/10/23 06/16/23 lactulose 10 gram/15 mL oral 20 g PO .qod 06/10/23 06/16/23 solution torsemide 20 mg tablet 20 mg PO DAILY 06/10/23 06/16/23 vitamin E (dl, acetate) 450 mg 450 mg PO DAILY 06/10/23 06/16/23 (1,000 unit) capsule zinc sulfate 50 mg zinc (220 mg) 50 mg PO DAILY 06/10/23 06/16/23 capsule ondansetron 4 mg disintegrating 4 mg PO TID-QID PRN nausea and 06/11/23 06/16/23 tablet vomiting fludrocortisone 0.1 mg tablet 0.1 mg PO DAILY 06/14/23 06/16/23 Allergies Allergy/AdvReac Type Severity Reaction Status Date / Time No Known Drug Allergies Allergy Verified 06/16/23 10:44 [facility] Medical History (Updated 06/16/23 @ 13:45 by Avery Estrada MD) Acute hypokalemia ?E87.6 - Hypokalemia (ICD-10) Loopp-9-oyhxciydxdy deficiency ?E88.01 - Eitxr-6-kxzlthnrsdt deficiency (ICD-10) Ascites ?R18.8 - Other ascites (ICD-10) Chronic liver failure ?K72.10 - Chronic hepatic failure without coma (ICD-10) COPD (chronic obstructive pulmonary disease) ?J44.9 - Chronic obstructive pulmonary disease, unspecified (ICD-10) Dyspnea ?R06.00 - Dyspnea, unspecified (ICD-10) Fracture of rib ?S22.39XA - Fracture of one rib, unspecified side, initial encounter for closed fracture (ICD-10) Gastroenteritis ?K52.9 - Noninfective gastroenteritis and colitis, unspecified (ICD-10) GERD (gastroesophageal reflux disease) ?K21.9 - Gastro-esophageal reflux disease without esophagitis (ICD-10) Glaucoma ?H40.9 - Unspecified glaucoma (ICD-10) Hepatic encephalopathy ?K76.82 - Hepatic encephalopathy (ICD-10) HTN (hypertension) ?I10 - Essential (primary) hypertension (ICD-10) Hyperammonemia ?E72.20 - Disorder of urea cycle metabolism, unspecified (ICD-10) Pleural effusion ?J90 - Pleural effusion, not elsewhere classified (ICD-10) Pleural effusion on right ?J90 - Pleural effusion, not elsewhere classified (ICD-10) Vomiting ?R11.10 - Vomiting, unspecified (ICD-10) Surgical History History of abdominal paracentesis ?Z98.890 - Other specified postprocedural states (ICD-10) History of cholecystectomy ?Z90.49 - Acquired absence of other specified parts of digestive tract (ICD-10) History of liver biopsy ?Z98.890 - Other specified postprocedural states (ICD-10) S/P thoracentesis ?Z98.890 - Other specified postprocedural states (ICD-10) Social History Smoking status: Never smoker Exam Constitutional Vital Signs, click to edit/add: Last Vital Signs Temp 97.5 F L 06/16/23 10:36 Pulse 97 H 06/16/23 11:40 Resp 14 06/16/23 11:40 BP 90/52 06/16/23 13:01 Pulse Ox 88 L 06/16/23 12:49 O2 Del Method Room Air 06/16/23 12:49 O2 Flow Rate 2 06/16/23 12:49 Course Vital Signs Vital signs: Vital Signs Temperature 97.5 F L 06/16/23 10:36 Pulse Rate 104 H 06/16/23 10:36 Respiratory Rate 18 06/16/23 10:36 Blood Pressure 106/52 06/16/23 10:36 Pulse Oximetry 92 L 06/16/23 10:36 Oxygen Delivery Method Room Air 06/16/23 10:36 Temperature 97.5 F L 06/16/23 10:36 Pulse Rate 97 H 06/16/23 11:40 Respiratory Rate 14 06/16/23 11:40 Blood Pressure 90/52 06/16/23 13:01 Pulse Oximetry 88 L 06/16/23 12:49 Oxygen Delivery Method Room Air 06/16/23 12:49 Oxygen Delivery Flow Rate 2 06/16/23 12:49 Medical Decision Making MDM Narrative Medical decision making narrative: 1140 I spoke to the liver coordinator volunteer services, Graciela from the [facility]. Mother has the phone number. The recommendation was to call [facility] to get patient on the transfer list, they may not have beds available the patient could be on the wait list for transfer and then admit patient locally if needed. Patient will be given IV Dilaudid for diffuse pain, Toradol for headache pain, Zofran and Compazine for nausea and vomiting, along with IV fluids. 1330 Mother had stopped home to get patient's belongings, I stopped at the bedside to update her his feet the patient as well. Patient never enzymes are elevated, but not critical for his baseline. Patient potassium was 3.2, patient is given oral potassium to drink. Patient blood pressure has improved with 2 L of IV fluid. Patient has had several paracentesis done previously, locally here with Dr. Yuen. Patient has seen Dr. Burch as well and the [facility] for consultation for thoracentesis. [address] Alcazar, he is the medicine quarterback at the [facility] who is accepting admission. Patient is currently on a waiting list for transfer to the liver transplant team. No other recommendations on any additional testing at this time. They are aware the patient will be admitted to Dr. Hernandez is patient's PCP. Critical care time 35 minutes exclusive from separate billable procedures that were performed. The following was considered in the determination of critical care but not limited to the level of medical decision making, intensive cardiac and/or respiratory monitoring, frequent vital sign monitoring, evaluation of laboratory studies, evaluation of radiographic studies, oxygen monitoring, and constant monitoring and speaking to family at bedside Lab Data Lab results reviewed: Yes I reviewed the patient's lab results Labs: Lab Results 06/16/23 06/16/23 06/16/23 Range/Units 10:49 11:16 11:27 WBC 12.7 H (4.0-11.0) 10^3/uL RBC 3.20 L (4.70-6.10) 10^6/uL Hgb 10.8 L (14.0-18.0) g/dL Hct 32.0 L (42.0-54.0) % MCV 100.0 H (80.0-94.0) fL MCH 33.8 (25.9-34.0) pg MCHC 33.8 (29.9-35.2) g/dL RDW 16.0 H (11.0-15.0) % Plt Count 128 L (150-450) 10^3/uL MPV 10.4 (9.5-13.5) fL Neut % (Auto) 70.3 (43.0-75.0) % Lymph % (Auto) 15.9 L (20.5-60.0) % Hill % (Auto) 11.2 (1.7-12.0) % Eos % (Auto) 1.8 (0.9-7.0) % Baso % (Auto) 0.3 (0.2-2.0) % Neut # (Auto) 8.9 H (1.4-6.5) 10^3/uL Lymph # (Auto) 2.0 (1.2-3.8) 10^3/uL Hill # (Auto) 1.4 H (0.3-0.8) 10^3/uL Eos # (Auto) 0.2 (0.0-0.7) 10^3/uL Baso # (Auto) 0.0 (0.0-0.1) 10^3/uL Abs Immat Gran (auto) 0.06 H (0.00-0.03) 10^3/uL Imm/Tot Granulo (auto) 0.5 (0.0-0.5) % PT 14.3 H (9.0-11.6) sec INR 1.37 VBG pH 7.496 H (7.330-7.430) VBG pCO2 41.5 (40.0-52.0) mmHg Sodium 129 L (136-145) mmol/L Potassium 3.2 L (3.5-5.1) mmol/L Chloride 94 L (98-107) mmol/L Carbon Dioxide 29.8 (21.0-32.0) mmol/L Anion Gap 8.4 BUN 13.0 (7.0-18.0) mg/dL Creatinine 0.91 (0.70-1.30) mg/dL Est GFR ( Amer) >60 (>=60) Est GFR (Non-Af Amer) >60 (>=60) BUN/Creatinine Ratio 14.3 Glucose 107 H (74-106) mg/dL Lactate 1.6 (0.4-2.0) mmol/L Calcium 7.6 L (8.5-10.1) mg/dL Total Bilirubin 2.9 H (0.2-1.0) mg/dL AST 62 H (15-37) U/L ALT 73 H (16-63) U/L Alkaline Phosphatase 96 (46-116) U/L Ammonia 69 H* (11-32) umol/L Troponin I High Sens 16.8 (4.0-76.1) pg/mL Total Protein 6.4 (6.4-8.2) g/dL Albumin 2.4 L (3.4-5.0) g/dL Globulin 4.0 g/dL Albumin/Globulin Ratio 0.6 TSH 3.673 (0.358-3.740) uIU/mL Ethanol Quant <3 mg/dL SARS-CoV-2 (PCR) Negative (NEGATIVE) ECG Data Attestation: I personally reviewed and interpreted this ECG as follows: (EKG interpretation. Sinus tachycardia at one 01. Normal axis deviation. No acute ST elevation, no acute ectopy. QTC of 432.) Discharge Plan Discharge Chief Complaint: Altered Mental Status Clinical Impression: AAT (sdylp-0-sebcjepmxbs) deficiency, Pleural effusion on right, Acute hypotension, Acute hypokalemia, Weakness, Chronic hepatic failure Patient Disposition: Home, Self-Care Time of Disposition Decision: 13:44 Condition: Fair Prescriptions / Home Meds: No Action bumetanide 1 mg tablet 1 mg PO Q12H Vitamin B 1 tab PO DAILY ondansetron 4 mg tablet,disintegrating 4 mg PO TID-QID PRN (Reason: nausea and vomiting) torsemide 20 mg tablet 20 mg PO DAILY vitamin E (dl, acetate) 450 mg (1,000 unit) capsule 450 mg PO DAILY zinc sulfate 50 mg zinc (220 mg) capsule 50 mg PO DAILY lactulose 10 gram/15 mL solution 20 g PO .qod benzonatate 200 mg capsule 200 mg PO TID PRN (Reason: cough) fluticasone propion-salmeterol [Advair Diskus] 250-50 mcg/dose blister with device 1 inh inhalation BID atenolol 50 mg tablet 50 mg PO DAILY Patient Comments: has been holding due to low blood pressure brimonidine 1 drp ophthalmic (eye) BID Patient Comments: ou citalopram 20 mg tablet 20 mg PO DAILY fluticasone propionate 50 mcg/actuation spray,suspension 2 spray intranasal DAILY Rx Instructions: administer into each nostril latanoprostene bunod 0.024 % drops 1 drp ophthalmic (eye) QPM Patient Comments: ou omeprazole 20 mg tablet,delayed release (DR/EC) 20 mg PO DAILY cholecalciferol (vitamin D3) 25 mcg (1,000 unit) capsule 25 mcg PO DAILY Zyrtec 10 mg capsule 10 mg PO DAILY montelukast [Singulair] 10 mg tablet 10 mg PO DAILY spironolactone 50 mg PO DAILY potassium chloride 20 mEq tablet,ER particles/crystals 20 meq PO DAILY fludrocortisone 0.1 mg tablet 0.1 mg PO DAILY Stand Alone Forms: Portal Instructions Referrals: Cecil Hernandez MD [Primary Care Provider] - 1 week
[2023-06-16 11:00] LABS: Basophils Percent Auto 0.3 % (0.2-2.0); Eosinophils Absolute Auto 0.2 10^3/uL (0.0-0.7); Eosinophils Percent Auto 1.8 % (0.9-7.0); Hemoglobin 10.8 g/dL (14.0-18.0); Immature Granulocytes Abs Auto 0.06 10^3/uL (0.00-0.03); Immature Granulocytes Pct Auto 0.5 % (0.0-0.5); Lymphocytes Percent Auto 15.9 % (20.5-60.0); Mean Corpuscular HGB Conc 33.8 g/dL (29.9-35.2); Mean Corpuscular Hemoglobin 33.8 pg (25.9-34.0); Mean Platelet Volume 10.4 fL (9.5-13.5); Monocytes Absolute Auto 1.4 10^3/uL (0.3-0.8); Monocytes Percent Auto 11.2 % (1.7-12.0); Neutrophils Absolute Auto 8.9 10^3/uL (1.4-6.5); Neutrophils Percent Auto 70.3 % (43.0-75.0); Platelet Count 128 10^3/uL (150-450); White Blood Count 12.7 10^3/uL (4.0-11.0)
[2023-06-16 11:13] LABS: INR 1.37; Prothrombin Time 14.3 sec (9.0-11.6)
[2023-06-16 11:23] LABS: PCO2 VBG 41.5 mmHg (40.0-52.0); pH VBG 7.496 (7.330-7.430)
[2023-06-16 11:26] LABS: Alanine Aminotransferase 73 U/L (16-63); Albumin Globulin Ratio 0.6; Albumin Level 2.4 g/dL (3.4-5.0); Alkaline Phosphatase 96 U/L (46-116); Anion Gap 8.4; Aspartate Amino Transferase 62 U/L (15-37); BUN Creatinine Ratio 14.3; Bilirubin Total 2.9 mg/dL (0.2-1.0); Calcium 7.6 mg/dL (8.5-10.1); Carbon Dioxide 29.8 mmol/L (21.0-32.0); Chloride 94 mmol/L (98-107); Estimated GFR (African America >60 (>=60); Estimated GFR (Non-African Ame >60 (>=60); Glucose 107 mg/dL (74-106); Potassium 3.2 mmol/L (3.5-5.1); Sodium 129 mmol/L (136-145); Total Protein 6.4 g/dL (6.4-8.2)
[2023-06-16 11:31] LABS: Lactate/Lactic Acid 1.6 mmol/L (0.4-2.0)
[2023-06-16 11:35] LABS: Ethanol <3 mg/dL; Thyroid Stimulating Hormone 3.673 uIU/mL (0.358-3.740); Troponin I High Sensitivity 16.8 pg/mL (4.0-76.1)
[2023-06-16] MEDS: HYDROMORPHONE HCL 0.5 MG/0.5 ML SYRINGE IV (11:36)
[2023-06-16] MEDS: ONDANSETRON PF 4 MG/2 ML VIAL IV (11:36)
[2023-06-16 11:45] LABS: SARS-CoV-2 Ag NEGATIVE (NEGATIVE)
[2023-06-16] MEDS: KETOROLAC TROMETHAMINE 30 MG/ML VIAL 15 MG IVP (11:46)
[2023-06-16] MEDS: 0.9 % SODIUM CHLORIDE 1,000 ML 1000 ML IV ×2 (11:47→12:39)
[2023-06-16] MEDS: PROCHLORPERAZINE 10 MG/2 ML VIAL IV (11:47)
[2023-06-16 11:49] LABS: Ammonia 69 umol/L (11-32)
--- NOTE | 2023-06-16 12:49 | PC.NURSE ---
pt O2 dropped to 88% on RA. pt placed on 2L O2 per NC pt SAT 93% on 2L
--- NOTE | 2023-06-16 13:36 | XR_ITS ---
The [address] [address] Patient Name: KYLE ANTONY MRN: [id number] date: 1990 Sex: M Assigned Patient Location: ED.MAIN Current Patient Location: ER Accession/Order Number: [id number] Exam Date: 06/16/2023 13:47 Report Date: 06/16/2023 14:03 At the request of: DAVID EATON Procedure: XR chest 1V EXAMINATION: XR chest 1V HISTORY: sob COMPARISON: XR chest 06/14/2023 FINDINGS: LUNGS: Complete opacification of the lower two thirds of the right hemithorax. Mild haziness within the mid and lower left lung. VASCULATURE: No increased pulmonary vasculature. PLEURA: No pneumothorax, effusion, or pleural thickening. CARDIAC: No cardiomegaly or cardiac silhouette abnormality. MEDIASTINUM: No visible mass or adenopathy. BONES: No fracture or visible bone lesion. OTHER: Negative. XR/XR chest 1V IMPRESSION: 1. Suspect persistent large right pleural effusion as seen on the recent CT study, with adjacent atelectasis or infiltrates. Right lung apex is clear. 2. Underexpanded left lung with mild atelectasis versus infiltrates. Electronically authenticated by: KYLE LIMA Date: 06/16/2023 14:03
[2023-06-16] MEDS: POTASSIUM BICARBONATE/CIT 25 MEQ TABLET EFF 50 MEQ PO (14:01)
[2023-06-16] MEDS: 0.9 % SODIUM CHLORIDE 1,000 ML 125 ML IV (14:40)
--- NOTE | 2023-06-16 14:59 | US_ITS ---
[place] [id number] Patient Name: KYLE ANTONY MRN: [id number] date: 1990 Sex: M Assigned Patient Location: MS Current Patient Location: MS Accession/Order Number: [id number] Exam Date: 06/16/2023 15:00 Report Date: 06/16/2023 16:15 At the request of: FATUMA CRAWLEY Procedure: US abdomen limited EXAM: US abdomen limited HISTORY: Abd Pain COMPARISON: 03/21/2023 TECHNIQUE: Limited ultrasound of the abdomen for evaluation of the ascites. FINDINGS and impression: Largest pocket of the fluid within the right lower quadrant is 90 cm and in the left lower quadrant is 4.7 cm. Electronically authenticated by: PRABHAKAR ROWELL Date: 06/16/2023 16:15
[2023-06-16 16:00] LABS: SARS-CoV-2 NAA NOT DETECTED (NOT DETECTE)
[2023-06-16 17:24] LABS: Magnesium 1.9 mg/dL (1.8-2.4)
[2023-06-16] MEDS: LACTATED RINGER'S SOLUTION 1,000 ML 125 ML IV (17:44)
[2023-06-16] MEDS: METRONIDAZOLE/SODIUM CHLORIDE 500 MG/100 ML PREMIX 100 MG IV (17:45)
[2023-06-16] MEDS: PANTOPRAZOLE SODIUM 40 MG VIAL IV (17:45)
[2023-06-16] MEDS: IPRATROPIUM/ALBUTEROL SULFATE 3 ML AMPUL.NEB IH (20:13)
[2023-06-16] MEDS: CEFTAZIDIME 1,000 MG in 0.9 % SODIUM CHLORIDE 50 ML 100 MG IV (20:25)
--- NOTE | 2023-06-16 21:30 | P.HP_ITS ---
H&P: HPI History of Present Illness Chief complaint: ALTERED MENTAL STATUS Narrative: Seen in office with significant AMS, hypotension, pt has been in and out of ER in last 2 weeks. Referred to ER in Er with hypotension - needing fluid boluses, mark WBC, hyponatremia, hypokalemia Review of Systems ROS Status of ROS 10 or more systems reviewed and unremarkable except as noted in history and below [facility] Medical History (Updated 06/16/23 @ 13:45 by Avery Estrada MD) Acute hypokalemia ?E87.6 - Hypokalemia (ICD-10) Hsnep-4-ghmxahcnptn deficiency ?E88.01 - Dffmj-3-ptuhmdhmrsf deficiency (ICD-10) Ascites ?R18.8 - Other ascites (ICD-10) Chronic liver failure ?K72.10 - Chronic hepatic failure without coma (ICD-10) COPD (chronic obstructive pulmonary disease) ?J44.9 - Chronic obstructive pulmonary disease, unspecified (ICD-10) Dyspnea ?R06.00 - Dyspnea, unspecified (ICD-10) Fracture of rib ?S22.39XA - Fracture of one rib, unspecified side, initial encounter for closed fracture (ICD-10) Gastroenteritis ?K52.9 - Noninfective gastroenteritis and colitis, unspecified (ICD-10) GERD (gastroesophageal reflux disease) ?K21.9 - Gastro-esophageal reflux disease without esophagitis (ICD-10) Glaucoma ?H40.9 - Unspecified glaucoma (ICD-10) Hepatic encephalopathy ?K76.82 - Hepatic encephalopathy (ICD-10) HTN (hypertension) ?I10 - Essential (primary) hypertension (ICD-10) Hyperammonemia ?E72.20 - Disorder of urea cycle metabolism, unspecified (ICD-10) Pleural effusion ?J90 - Pleural effusion, not elsewhere classified (ICD-10) Pleural effusion on right ?J90 - Pleural effusion, not elsewhere classified (ICD-10) Vomiting ?R11.10 - Vomiting, unspecified (ICD-10) Surgical History History of abdominal paracentesis ?Z98.890 - Other specified postprocedural states (ICD-10) History of cholecystectomy ?Z90.49 - Acquired absence of other specified parts of digestive tract (ICD- 10) History of liver biopsy ?Z98.890 - Other specified postprocedural states (ICD-10) S/P thoracentesis ?Z98.890 - Other specified postprocedural states (ICD-10) Family History (Updated 06/16/23 @ 16:00 by Jimena Bashir LPN) Mother Family history of CHF (congestive heart failure) Family history of hypertension Family history of stroke Grandmother Family history of cancer Family history of diabetes mellitus Family history of hypertension Family history of stroke Grandfather Family history of diabetes mellitus Family history of hypertension Family history of myocardial infarction Father Family history of hypertension Social History (Updated 06/16/23 @ 16:02 by Jimena Bashir LPN) Smoking status: Never smoker Second hand tobacco smoke exposure: No Non-prescribed substance use: denies use Known occupational exposures/hazards: No Highest level of school completed/degree received: high school graduate Do you want help with school or training: No Are you now , , , , never or living with a partner: never In a typical week, how many times do you talk on the telephone with family, friends, or neighbors: 3 or more times per week How often do you get together with friends or relatives: 3 or more times per week How often do you attend roman catholic or samaritan services: never Do you belong to any clubs or organizations such as roman catholic groups unions, fraAhalogy or athletic groups, or school groups: no Total score: 1 Score interpretation: A score of less than or equal to 1 indicates the most socially isolated. Little interest or pleasure in doing things: not at all Feeling down, depressed, or hopeless: not at all Feel stressed/tense/nervous/anxious/difficulty sleeping: not at all Due to disability, difficulty making decisions: No Meds Home Medications and Allergies Home Medications Medication Instructions Recorded Confirmed Type atenolol 50 mg tablet 50 mg PO DAILY 03/19/23 06/16/23 History brimonidine 1 drp ophthalmic (eye) BID 03/19/23 06/16/23 History cetirizine 10 mg capsule (Zyrtec) 10 mg PO DAILY 03/19/23 06/16/23 History cholecalciferol (vitamin D3) 25 25 mcg PO DAILY 03/19/23 06/16/23 History mcg (1,000 unit) capsule citalopram 20 mg tablet 20 mg PO DAILY 03/19/23 06/16/23 History fluticasone 250 mcg-salmeterol 50 1 inh inhalation BID 03/19/23 06/16/23 History mcg/dose blistr powdr for inhalation (Advair Diskus) fluticasone propionate 50 2 spray intranasal DAILY 03/19/23 06/16/23 History mcg/actuation nasal spray,suspension latanoprostene bunod 0.024 % eye 1 drp ophthalmic (eye) QPM 03/19/23 06/16/23 History drops montelukast 10 mg tablet 10 mg PO DAILY 03/19/23 06/16/23 History (Singulair) omeprazole 20 mg tablet,delayed 20 mg PO DAILY 03/19/23 06/16/23 History release spironolactone 50 mg PO DAILY 04/23/23 06/16/23 History bumetanide 1 mg tablet 1 mg PO Q12H 05/18/23 06/16/23 History Vitamin B 1 tab PO DAILY 05/21/23 06/16/23 History potassium chloride 20 mEq 20 meq PO DAILY 05/29/23 06/16/23 History tablet,extended release(part/cryst) benzonatate 200 mg capsule 200 mg PO TID PRN cough 06/10/23 06/16/23 History lactulose 10 gram/15 mL oral 20 g PO .qod 06/10/23 06/16/23 History solution torsemide 20 mg tablet 40 mg PO DAILY 06/10/23 06/16/23 History vitamin E (dl, acetate) 450 mg 450 mg PO DAILY 06/10/23 06/16/23 History (1,000 unit) capsule zinc sulfate 50 mg zinc (220 mg) 50 mg PO DAILY 06/10/23 06/16/23 History capsule ondansetron 4 mg disintegrating 4 mg PO TID-QID PRN nausea and 06/11/23 06/16/23 History tablet vomiting fludrocortisone 0.1 mg tablet 0.1 mg PO BID 06/14/23 06/16/23 History Allergies Allergy/AdvReac Type Severity Reaction Status Date / Time No Known Drug Allergies Allergy Verified 06/16/23 10:44 Exam Constitutional Vital Signs, click to edit/add: Last Vital Signs Temp 98.0 F 06/16/23 19:00 Pulse 106 H 06/16/23 20:13 Resp 16 06/16/23 20:13 BP 98/58 06/16/23 19:00 Pulse Ox 95 06/16/23 20:13 O2 Del Method Nasal Cannula 06/16/23 20:13 O2 Flow Rate 2 06/16/23 20:13 Documenting provider has reviewed patient's vital signs: yes Common normals: no apparent distress HENMT Common normals: normocephalic and head/scalp atraumatic Chest Common normals: inspection of chest normal Respiratory Auscultation: breath sounds absent; no crackles and no wheezes Cardio Common normals: regular rate, regular rhythm and no murmurs GI Common normals: soft to palpation; tender (Minimal tenderness with no rebound tenderness) Results Labs Labs: Short CBC 06/16/23 Range/Units 10:49 WBC 12.7 H (4.0-11.0) 10^3/uL Hgb 10.8 L (14.0-18.0) g/dL Hct 32.0 L (42.0-54.0) % Plt Count 128 L (150-450) 10^3/uL BMP 06/16/23 10:49 Sodium 129 L Potassium 3.2 L Chloride 94 L Carbon Dioxide 29.8 BUN 13.0 Creatinine 0.91 Glucose 107 H Calcium 7.6 L Liver Function 06/16/23 Range/Units 10:49 Total Bilirubin 2.9 H (0.2-1.0) mg/dL AST 62 H (15-37) U/L ALT 73 H (16-63) U/L Alkaline Phosphatase 96 (46-116) U/L Albumin 2.4 L (3.4-5.0) g/dL ABG ABG results: 06/16/23 11:16 VBG pH 7.496 H VBG pCO2 41.5 Assessment and Plan Assessment and Plan (1) AAT (bcbuk-7-pvsotmznqnr) deficiency: (2) Pleural effusion on right: (3) Acute hypotension: (4) Acute hypokalemia: (5) Weakness: (6) Chronic hepatic failure: (7) Ascites: (8) Chronic liver failure: (9) COPD (chronic obstructive pulmonary disease): (10) Dyspnea: (11) HTN (hypertension): Plan Sinus tachycardia, hypotension, leukocytosis, altered mental status secondary to hepatic encephalopathy, deteriorating liver failure, possible ascending cholangitis, possibel LLL Pneumonia resulting in sepsis. Start IV antibiotics, blood cultures. Inc fluids History of liver failure and receives para and thoracentesis frequently. Needs U/s Abd - holding off on thoracentesis with risk of pneumothorax and possible pneumonia on x-ray Thrombocytopenia-likely secondary to the above-monitor daily Hypocalcemia-supplement Hypokalemia secondary to elevated above-supplement Severe protein Malnutrition with albumin of less than has needed albumin boluses in the past o make up for protein loss from paracentesis With the severity of his altered mental status and the degree of his hyperammonemia and the deterioration in his overall condition with the leukocytosis and possible ascending cholangitis, sepsis, pneumonia, place patient on inpatient status.
[2023-06-16] MEDS: POTASSIUM CHLORIDE 10 MEQ ER TABLET 20 MEQ PO (21:31)
[2023-06-16] MEDS: FLUDROCORTISONE ACETATE 0.1 MG TABLET PO (21:33)
[2023-06-16] MEDS: ENSURE HP 237 ML LIQUID PO (21:37)
[2023-06-16] MEDS: MAGNESIUM OXIDE 400 MG TABLET PO (21:37)
[2023-06-16] MEDS: BENZONATATE 100 MG CAPSULE 200 MG PO (21:37)
[2023-06-16] MEDS: PROSTAT 15 GM PROTEIN/100 CAL 30 ML LIQUID PACKET PO (21:37)
[2023-06-16] MEDS: L. ACIDOPHILUS/L.BULGARICUS 1 PACKET GRAN.PACK PO (21:37)
[2023-06-16] MEDS: LACTULOSE 10 GM/15 ML (237ML) SOLUTION 30 GM PO (21:45)
[2023-06-17] VITALS (26 sets, daily range): BP systolic 92–111; BP diastolic 39–68; PULSE 94–130; RESP 18–91; TEMP 36.7–37.2; O2SAT 91–129
[2023-06-17] MEDS: METRONIDAZOLE/SODIUM CHLORIDE 500 MG/100 ML PREMIX 100 MG IV ×4 (01:24→17:04)
[2023-06-17] MEDS: KETOROLAC TROMETHAMINE 30 MG/ML VIAL IVP ×2 (01:29→16:03)
[2023-06-17] MEDS: LACTATED RINGER'S SOLUTION 1,000 ML 125 ML IV ×3 (04:18→20:05)
[2023-06-17] MEDS: CEFTAZIDIME 1,000 MG in 0.9 % SODIUM CHLORIDE 50 ML 100 MG IV ×3 (04:18→20:06)
[2023-06-17] MEDS: IPRATROPIUM/ALBUTEROL SULFATE 3 ML AMPUL.NEB IH ×4 (05:18→20:30)
[2023-06-17] MEDS: PANTOPRAZOLE SODIUM 40 MG VIAL IV ×2 (05:24→18:01)
[2023-06-17] MEDS: LACTULOSE 10 GM/15 ML (237ML) SOLUTION 30 GM PO ×2 (05:24→14:02)
[2023-06-17 05:49] LABS: Basophils Absolute Auto 0.1 10^3/uL (0.0-0.1); Basophils Percent Auto 0.6 % (0.2-2.0); Eosinophils Absolute Auto 0.2 10^3/uL (0.0-0.7); Hematocrit 31.3 % (42.0-54.0); Hemoglobin 10.5 g/dL (14.0-18.0); Immature Granulocytes Abs Auto 0.12 10^3/uL (0.00-0.03); Immature Granulocytes Pct Auto 1.1 % (0.0-0.5); Lymphocytes Absolute Auto 1.8 10^3/uL (1.2-3.8); Lymphocytes Percent Auto 16.7 % (20.5-60.0); Mean Corpuscular HGB Conc 33.5 g/dL (29.9-35.2); Mean Corpuscular Hemoglobin 33.5 pg (25.9-34.0); Mean Platelet Volume 10.5 fL (9.5-13.5); Monocytes Absolute Auto 1.5 10^3/uL (0.3-0.8); Monocytes Percent Auto 14.2 % (1.7-12.0); Neutrophils Percent Auto 65.4 % (43.0-75.0); Platelet Count 125 10^3/uL (150-450); Red Blood Count 3.13 10^6/uL (4.70-6.10); Red Cell Distribution Width 16.2 % (11.0-15.0); White Blood Count 10.7 10^3/uL (4.0-11.0)
[2023-06-17 05:59] LABS: Amylase 38 U/L (25-115)
[2023-06-17 06:03] LABS: Ammonia 37 umol/L (11-32)
[2023-06-17 06:09] LABS: Alanine Aminotransferase 46 U/L (16-63); Albumin Globulin Ratio 0.6; Albumin Level 2.3 g/dL (3.4-5.0); Alkaline Phosphatase 90 U/L (46-116); Anion Gap 8.7; Aspartate Amino Transferase 67 U/L (15-37); BUN Creatinine Ratio 14.3; Bilirubin Total 2.1 mg/dL (0.2-1.0); Calcium 7.7 mg/dL (8.5-10.1); Carbon Dioxide 31.1 mmol/L (21.0-32.0); Chloride 94 mmol/L (98-107); Estimated GFR (African America >60 (>=60); Estimated GFR (Non-African Ame >60 (>=60); Globulin 4.1 g/dL; Glucose 108 mg/dL (74-106); Potassium 3.8 mmol/L (3.5-5.1); Sodium 130 mmol/L (136-145); Total Protein 6.4 g/dL (6.4-8.2)
[2023-06-17 06:12] LABS: INR 1.34
[2023-06-17] MEDS: 0.9 % SODIUM CHLORIDE 1,000 ML 1000 ML IV ×3 (07:15→19:01)
--- NOTE | 2023-06-17 07:21 | P.PN_ITS ---
Progress Note: Subjective Subjective Interval history: Looks a little better this morning. Having more diarrhea this morning. Exam Constitutional Vital Signs, click to edit/add: Last Vital Signs Temp 98.2 F 06/17/23 04:00 Pulse 112 H 06/17/23 06:00 Resp 18 06/17/23 05:18 BP 97/61 06/17/23 04:00 Pulse Ox 93 L 06/17/23 05:18 O2 Del Method Nasal Cannula 06/17/23 05:18 O2 Flow Rate 2 06/17/23 05:18 Documenting provider has reviewed patient's vital signs: yes Common normals: no apparent distress HENMT Common normals: normocephalic and head/scalp atraumatic Chest Common normals: inspection of chest normal Respiratory Auscultation: breath sounds absent; no crackles and no wheezes Cardio Common normals: regular rate, regular rhythm and no murmurs GI Common normals: soft to palpation; tender (Minimal tenderness with no rebound tenderness) Progress Note: Objective Labs Labs: Short CBC 06/16/23 06/17/23 Range/Units 10:49 05:27 WBC 12.7 H 10.7 (4.0-11.0) 10^3/uL Hgb 10.8 L 10.5 L (14.0-18.0) g/dL Hct 32.0 L 31.3 L (42.0-54.0) % Plt Count 128 L 125 L (150-450) 10^3/uL BMP 06/16/23 06/17/23 10:49 05:27 Sodium 129 L 130 L Potassium 3.2 L 3.8 Chloride 94 L 94 L Carbon Dioxide 29.8 31.1 BUN 13.0 18.0 Creatinine 0.91 1.26 Glucose 107 H 108 H Calcium 7.6 L 7.7 L Liver Function 06/16/23 06/17/23 Range/Units 10:49 05:27 Total Bilirubin 2.9 H 2.1 H (0.2-1.0) mg/dL AST 62 H 67 H (15-37) U/L ALT 73 H 46 (16-63) U/L Alkaline Phosphatase 96 90 (46-116) U/L Albumin 2.4 L 2.3 L (3.4-5.0) g/dL Progress Note: A&P Assessment and Plan (1) AAT (niptg-5-aydvjesqlzl) deficiency: (2) Pleural effusion on right: (3) Acute hypotension: (4) Acute hypokalemia: (5) Weakness: (6) Chronic hepatic failure: (7) Ascites: (8) COPD (chronic obstructive pulmonary disease): (9) Dyspnea: (10) HTN (hypertension): Plan Sinus tachycardia, hypotension, hypoxia, leukocytosis, altered mental status secondary to hepatic encephalopathy, deteriorating liver failure, possible ascending cholangitis, possible LLL Pneumonia resulting in sepsis with multisystem organ failure(Liver, lung, brain). Start IV antibiotics, blood cultures. Inc fluids History of liver failure with hyperammoniemia leading to AMS - and receives para and thoracentesis frequently. Needs U/s Abd - see what radiology thinks about paracentesis - NH3 better Thrombocytopenia-likely secondary to the above-monitor daily Hypocalcemia-supplement - better Right pleural effusion - secondary to transudate from ascites - holding off on thoracentesis due to risk with recent pneumothorax and possible current LLL pneumonia Coagulopathy due to liver failure and possible sepsis - better sl - no Vit K anemia of chronic Liver disease - stable - Hypokalemia secondary to elevated above-supplement - better Severe protein Malnutrition with albumin of less than has needed albumin boluses in the past o make up for protein loss from paracentesis - add iv albumin to try to pull in fluid intgravascularly With the severity of his altered mental status and the degree of his hyperammonemia and the deterioration in his overall condition with the leukocytosis and possible ascending cholangitis, sepsis, pneumonia, place patient on inpatient status. ?
--- NOTE | 2023-06-17 07:31 | CM.NOTE ---
Rounds made with Dr. Hernandez. Plan is to transfer to [facility] when a bed is available per Dr. Hernandez.
[2023-06-17] MEDS: ALBUMIN HUMAN 25 GM/100 ML PREMIX IV ×2 (08:48→09:53)
[2023-06-17] MEDS: FLUDROCORTISONE ACETATE 0.1 MG TABLET PO ×2 (09:17→21:54)
[2023-06-17] MEDS: L. ACIDOPHILUS/L.BULGARICUS 1 PACKET GRAN.PACK PO ×2 (09:17→21:44)
[2023-06-17] MEDS: THIAMINE MONONITRATE (VIT B1) 100 MG TABLET PO (09:17)
[2023-06-17] MEDS: ENSURE HP 237 ML LIQUID PO ×2 (09:17→21:44)
[2023-06-17] MEDS: FLUTICASONE PROPIONATE 50 MCG NASAL SPRAY 2 SPRAY NS (09:17)
[2023-06-17] MEDS: PROSTAT 15 GM PROTEIN/100 CAL 30 ML LIQUID PACKET PO ×2 (09:17→21:44)
[2023-06-17] MEDS: MAGNESIUM OXIDE 400 MG TABLET PO ×2 (09:18→21:43)
[2023-06-17] MEDS: SPIRONOLACTONE 25 MG TABLET 50 MG PO (09:18)
[2023-06-17] MEDS: ZINC GLUCONATE 50 MG TABLET PO (09:18)
[2023-06-17] MEDS: CHOLECALCIFEROL (VITAMIN D3) 25 MCG/1,000 UNITS TABLET PO (09:18)
[2023-06-17] MEDS: CETIRIZINE HCL 10 MG TABLET PO (09:18)
[2023-06-17] MEDS: POTASSIUM CHLORIDE 10 MEQ ER TABLET 20 MEQ PO ×2 (09:18→21:43)
[2023-06-17] MEDS: MONTELUKAST SODIUM 10 MG TABLET PO (09:18)
[2023-06-17] MEDS: CITALOPRAM HYDROBROMIDE 20 MG TABLET PO (09:18)
[2023-06-17] MEDS: TORSEMIDE 20 MG TABLET 40 MG PO (09:18)
[2023-06-17] MEDS: BUMETANIDE 1 MG TABLET PO ×2 (09:22→21:43)
[2023-06-17] MEDS: VITAMIN E (DL,TOCOPHERYL ACET) 180 MG (400 IU) CAPSULE PO (09:24)
[2023-06-17 09:41] LABS: Magnesium 1.9 mg/dL (1.8-2.4)
--- NOTE | 2023-06-17 14:01 | PC.NURSE ---
@[email or web address] received a phone call from patients room. patient mother was on the other end and stated that the IV was beeping, so I shut it down and now it is saying you have to do something . check writer salesperson then hung up the phone and reported what was told to check writer salesperson, to the patients nurse. nurse was made aware of this and went down to patients room. [employer] director Shanda Guerra was also made aware of this.
[2023-06-17] MEDS: BENZONATATE 100 MG CAPSULE 200 MG PO ×2 (14:03→21:44)
--- NOTE | 2023-06-17 18:42 | PC.NURSE ---
1725 notified physician of patients increased heart rate and need for oxygen for comfort. other vitals wnl for patient. physician states he will add bollus orders for patient.
--- NOTE | 2023-06-17 18:48 | PC.NURSE ---
1456 notified physician of patients need for oxygen for complaints of SOB. no new orders at this time
--- NOTE | 2023-06-17 19:05 | PC.NURSE ---
notified physician of patient vitals following first liter of bollus. physician states to complete second liter as ordered.
[2023-06-18] VITALS (72 sets, daily range): BP systolic 89–139; BP diastolic 34–76; PULSE 111–150; RESP 0–37; TEMP 36.9–37.4; O2SAT 87–99
[2023-06-18] MEDS: METRONIDAZOLE/SODIUM CHLORIDE 500 MG/100 ML PREMIX 100 MG IV ×2 (01:00→06:28)
--- NOTE | 2023-06-18 01:20 | PC.NURSE ---
pt stated when he firast stood up he felt a little dizzy, than it passed after about 20 seconds
[2023-06-18 04:40] LABS: Hematocrit 29.4 % (42.0-54.0); Hemoglobin 9.9 g/dL (14.0-18.0); Mean Corpuscular HGB Conc 33.7 g/dL (29.9-35.2); Mean Corpuscular Hemoglobin 33.4 pg (25.9-34.0); Mean Corpuscular Volume 99.3 fL (80.0-94.0); Mean Platelet Volume 10.8 fL (9.5-13.5); Platelet Count 141 10^3/uL (150-450); Red Blood Count 2.96 10^6/uL (4.70-6.10); Red Cell Distribution Width 16.2 % (11.0-15.0); White Blood Count 14.6 10^3/uL (4.0-11.0)
[2023-06-18] MEDS: CEFTAZIDIME 1,000 MG in 0.9 % SODIUM CHLORIDE 50 ML 100 MG IV (04:48)
[2023-06-18] MEDS: IPRATROPIUM/ALBUTEROL SULFATE 3 ML AMPUL.NEB IH ×3 (05:02→20:29)
[2023-06-18 05:06] LABS: INR 1.46; Prothrombin Time 15.1 sec (9.0-11.6)
[2023-06-18 05:11] LABS: Ammonia 38 umol/L (11-32)
[2023-06-18 05:14] LABS: Alanine Aminotransferase 62 U/L (16-63); Albumin Globulin Ratio 0.8; Albumin Level 2.8 g/dL (3.4-5.0); Alkaline Phosphatase 86 U/L (46-116); Anion Gap 9.2; Aspartate Amino Transferase 59 U/L (15-37); BUN Creatinine Ratio 17.4; Bilirubin Total 2.2 mg/dL (0.2-1.0); Calcium 7.8 mg/dL (8.5-10.1); Carbon Dioxide 28.8 mmol/L (21.0-32.0); Chloride 95 mmol/L (98-107); Estimated GFR (African America >60 (>=60); Estimated GFR (Non-African Ame >60 (>=60); Globulin 3.6 g/dL; Glucose 119 mg/dL (74-106); Sodium 130 mmol/L (136-145); Total Protein 6.4 g/dL (6.4-8.2)
[2023-06-18 05:16] LABS: Basophils Abs Manual 0.14 10^3/uL (0.00-0.10); Monocytes Absolute Manual 0.87 10^3/uL (0.30-0.80); Segmented Neut Absolute Manual 11.97 10^3/uL (1.4-6.5)
[2023-06-18 05:17] LABS: Anisocytosis 1+; Macrocytosis 1+
[2023-06-18 05:46] LABS: Amylase 33 U/L (25-115); Magnesium 1.7 mg/dL (1.8-2.4)
[2023-06-18] MEDS: LACTATED RINGER'S SOLUTION 1,000 ML 125 ML IV (06:03)
[2023-06-18] MEDS: PANTOPRAZOLE SODIUM 40 MG VIAL IV ×2 (06:03→17:44)
[2023-06-18] MEDS: BENZONATATE 100 MG CAPSULE 200 MG PO ×2 (06:03→17:44)
[2023-06-18] MEDS: KETOROLAC TROMETHAMINE 30 MG/ML VIAL IVP ×3 (06:12→18:11)
--- NOTE | 2023-06-18 08:32 | P.PN_ITS ---
Progress Note: Subjective Subjective Interval history: No new complaints this morning. Exam Constitutional Vital Signs, click to edit/add: Last Vital Signs Temp 99.4 F 06/18/23 06:20 Pulse 120 H 06/18/23 07:41 Resp 22 06/18/23 06:20 BP 122/76 06/18/23 06:20 Pulse Ox 87 L 06/18/23 06:20 O2 Del Method Room Air 06/18/23 06:20 O2 Flow Rate 2 06/18/23 05:11 Documenting provider has reviewed patient's vital signs: yes Common normals: no apparent distress [facility] Common normals: normocephalic and head/scalp atraumatic Chest Common normals: inspection of chest normal Respiratory Auscultation: breath sounds absent; no crackles and no wheezes Cardio Common normals: regular rate, regular rhythm and no murmurs GI Common normals: soft to palpation; tender (Minimal tenderness with no rebound tenderness) Progress Note: Objective Labs Labs: Short CBC 06/18/23 Range/Units 04:28 WBC 14.6 H (4.0-11.0) 10^3/uL Hgb 9.9 L (14.0-18.0) g/dL Hct 29.4 L (42.0-54.0) % Plt Count 141 L (150-450) 10^3/uL BMP 06/18/23 04:28 Sodium 130 L Potassium 3.0 L Chloride 95 L Carbon Dioxide 28.8 BUN 15.0 Creatinine 0.86 Glucose 119 H Calcium 7.8 L Liver Function 06/18/23 Range/Units 04:28 Total Bilirubin 2.2 H (0.2-1.0) mg/dL AST 59 H (15-37) U/L ALT 62 (16-63) U/L Alkaline Phosphatase 86 (46-116) U/L Albumin 2.8 L (3.4-5.0) g/dL Progress Note: A&P Assessment and Plan (1) AAT (baswv-[id number]) deficiency: (2) Pleural effusion on right: (3) Acute hypotension: (4) Acute hypokalemia: (5) Weakness: (6) Chronic hepatic failure: (7) Ascites: (8) COPD (chronic obstructive pulmonary disease): (9) Dyspnea: (10) HTN (hypertension): Plan Sinus tachycardia, hypotension, hypoxia, leukocytosis, altered mental status secondary to hepatic encephalopathy, deteriorating liver failure, possible ascending cholangitis, possible LLL Pneumonia resulting in sepsis with multisystem organ failure(Liver, lung, brain). Low-grade fever at 99.4, elevation in his white blood cell count, will change antibiotics to Zosyn and Cipro. Double cover gram-negative's. Paracentesis today we will make sure they do culture of fluid. Hyponatremia-stable, continue with current fluid but decrease rate since blood pressure is better History of liver failure with hyperammoniemia leading to AMS -pneumonia stable on current dosing. We will maintain. Liver function is elevated today. Thrombocytopenia-likely secondary to the above-monitor daily Hypocalcemia-supplement - better Right pleural effusion - secondary to transudate from ascites - holding off on thoracentesis due to risk with recent pneumothorax and possible current LLL pneumonia-repeat chest x-ray Coagulopathy due to liver failure and possible sepsis -worse today-we will start patient on vitamin K. 5 mg oral as recommended by pharmacy anemia of chronic Liver disease -down slightly today, continue to monitor Hypokalemia secondary to the above-worse today, potassium bolus and increase oral supplementation Severe protein Malnutrition with albumin of less than has needed albumin boluses in the past o make up for protein loss from paracentesis -repeat albumin bolus today. This is helped his blood pressure in the past with his paracentesis. Tachycardia-this is his normal at home he can runs in the low 100s. Is elevated at times still. With the severity of his altered mental status and the degree of his hyperammonemia and the deterioration in his overall condition with the leukocytosis and possible ascending cholangitis, sepsis, pneumonia, place patient on inpatient status. ?
--- NOTE | 2023-06-18 08:34 | CM.NOTE ---
Rounds made with Dr. Hernandez. Potential paracentesis today and will await transfer to [facility].
[2023-06-18] MEDS: CHOLECALCIFEROL (VITAMIN D3) 25 MCG/1,000 UNITS TABLET PO (08:56)
[2023-06-18] MEDS: POTASSIUM CHLORIDE 10 MEQ ER TABLET 20 MEQ PO ×3 (08:56→21:22)
[2023-06-18] MEDS: SPIRONOLACTONE 25 MG TABLET 50 MG PO (08:56)
[2023-06-18] MEDS: FLUDROCORTISONE ACETATE 0.1 MG TABLET PO ×2 (08:56→21:27)
[2023-06-18] MEDS: ZINC GLUCONATE 50 MG TABLET PO (08:57)
[2023-06-18] MEDS: L. ACIDOPHILUS/L.BULGARICUS 1 PACKET GRAN.PACK PO ×2 (08:57→21:21)
[2023-06-18] MEDS: CETIRIZINE HCL 10 MG TABLET PO (08:57)
[2023-06-18] MEDS: THIAMINE MONONITRATE (VIT B1) 100 MG TABLET PO (08:57)
[2023-06-18] MEDS: CITALOPRAM HYDROBROMIDE 20 MG TABLET PO (08:57)
[2023-06-18] MEDS: PROSTAT 15 GM PROTEIN/100 CAL 30 ML LIQUID PACKET PO ×2 (08:57→21:19)
[2023-06-18] MEDS: ENSURE HP 237 ML LIQUID PO ×2 (08:57→21:21)
[2023-06-18] MEDS: MAGNESIUM OXIDE 400 MG TABLET PO ×3 (08:57→21:21)
[2023-06-18] MEDS: BUMETANIDE 1 MG TABLET PO ×2 (08:57→21:20)
[2023-06-18] MEDS: TORSEMIDE 20 MG TABLET 40 MG PO (08:57)
[2023-06-18] MEDS: VITAMIN E (DL,TOCOPHERYL ACET) 180 MG (400 IU) CAPSULE PO (08:57)
[2023-06-18] MEDS: MONTELUKAST SODIUM 10 MG TABLET PO (08:57)
[2023-06-18] MEDS: FLUTICASONE PROPIONATE 50 MCG NASAL SPRAY 2 SPRAY NS (08:59)
[2023-06-18] MEDS: PHYTONADIONE (VIT K1) 10 MG/ML AMPUL IM (09:07)
[2023-06-18] MEDS: CIPROFLOXACIN IN 5 % DEXTROSE 400 MG/200 ML PIGGYBACK 200 MG IV ×2 (10:19→21:27)
[2023-06-18] MEDS: PIPERACILLIN SODIUM/TAZOBACTAM 3.375 GM in 0.9 % SODIUM CHLORIDE 50 ML IV ×2 (11:58→18:11)
--- NOTE | 2023-06-18 12:22 | SWNOTE1 ---
LEONID stopped in and spoke with pt's mother. She had concerns in regards to pt's care down in the ER. Pt had been in and out of ER 2-3 times this past week. She had concerns as to why he was not admitted and voiced she is considering taking her and her families care to [facility]. LEONID did send email to director of ER and to Amita Puri.
[2023-06-18] MEDS: LIDOCAINE HCL 10 ML, SODIUM BICARBONATE 1 MEQ INJ (13:00)
--- NOTE | 2023-06-18 13:00 | US_ITS ---
[address] [address] Patient Name: KYLE ANTONY MRN: [id number] date: 1990 Sex: M Assigned Patient Location: Current Patient Location: [place] Accession/Order Number: [id number] Exam Date: 06/18/2023 13:00 Report Date: 06/18/2023 14:37 At the request of: FATUMA CRAWLEY Procedure: US paracentesis abd w/image EXAMINATION: US paracentesis abd w/image HISTORY: ascites COMPARISON: No relevant comparison available. DESCRIPTION: Informed consent was obtained. The patient was prepped and draped in standard sterile fashion. Ultrasound-guided paracentesis was performed in the usual sterile manner using 1% Xylocaine. FINDINGS: SITE: Right lower quadrant NEEDLE: Paracentesis 8 Fr. catheter over 18 gauge needle MEDICATION: 1% buffered Xylocaine for local anesthesia FLUID DESCRIPTION: Red, opaque FLUID VOLUME: 5.35 L COMPLICATIONS: None LABORATORY: None OTHER: Negative. US/US paracentesis abd w/image IMPRESSION: 1. Successful therapeutic paracentesis with removal of 5.35 L of dark red, opaque fluid. Electronically authenticated by: KYLE SAMUELSSOFIA Date: 06/18/2023 14:37
[2023-06-18] MEDS: ALBUMIN HUMAN 25 GM/100 ML PREMIX IV ×2 (14:38→16:40)
[2023-06-18] MEDS: LACTULOSE 10 GM/15 ML (237ML) SOLUTION 30 GM PO ×2 (14:39→21:21)
--- NOTE | 2023-06-18 14:57 | PC.NURSE ---
1440 [employer] notified of PICC need. 1145 Ana from [employer]. ETA 45 min
--- NOTE | 2023-06-18 15:00 | XR_ITS ---
The [address] [address] Patient Name: KYLE ANTONY MRN: [id number] date: 1990 Sex: M Assigned Patient Location: Current Patient Location: Accession/Order Number: [id number] Exam Date: 06/18/2023 15:30 Report Date: 06/18/2023 15:54 At the request of: FATUMA CRAWLEY Procedure: XR chest 2V EXAMINATION: XR chest 2V, , 06/18/2023 3:30 PM EDT INDICATION: ascites HISTORY: Ordering Provider Reason for Exam: ascites Technologist Note: Additional: COMPARISON: Chest x-ray dated 06/16/2023. TECHNIQUE: Chest x-ray: Two views. FINDINGS: Large right pleural effusion with adjacent consolidation is again seen, grossly stable since prior examination. The cardiac silhouette is difficult to evaluate on this examination due to right heart border being obscured by right hemithorax opacification. No obvious pneumothorax is seen. The left lung appears clear. XR/XR chest 2V IMPRESSION: Large right pleural effusion with adjacent consolidation, with a grossly stable appearance since prior examination. Electronically authenticated by: BERTA HUTCHISON Date: 06/18/2023 15:54
--- NOTE | 2023-06-18 15:00 | SWNOTE1 ---
Pt's daughter did request dietary consult, SW notified doctor and let nursing know.
--- NOTE | 2023-06-18 15:24 | PC.NURSE ---
[address] with cranberry colored fluid removed. Pt tolerated well without hemodynamic changes or abdominal pain. 1345 Dr Ceja in to assess pt status as being complete without complications. Paracentesis catheter removed and pt tolerated well. Pressure held x 4 minutes and hemostasis achieved. Applied vaseline gauze and Lg Tegaderm applied.
--- NOTE | 2023-06-18 15:34 | PC.NURSE ---
1345 Total of 5.35 liters removed.
--- NOTE | 2023-06-18 15:38 | RESP.RT ---
patient not in room,
--- NOTE | 2023-06-18 17:14 | RESP.RT ---
PICC line being placed
--- NOTE | 2023-06-18 22:26 | PC.NURSE ---
Due to coughing this communications writer educated patient on importance of having the head of the bed elevated slightly. Patient stated understanding however refused the head to be elevated.
[2023-06-18] MEDS: LACTATED RINGER'S SOLUTION 1,000 ML 75 ML IV (23:25)
[2023-06-19] VITALS (26 sets, daily range): BP systolic 96–128; BP diastolic 44–71; PULSE 111–132; RESP 18–22; TEMP 36.7–37.1; O2SAT 88–97
[2023-06-19] MEDS: BENZONATATE 100 MG CAPSULE 200 MG PO ×3 (00:22→18:20)
[2023-06-19] MEDS: PIPERACILLIN SODIUM/TAZOBACTAM 3.375 GM in 0.9 % SODIUM CHLORIDE 50 ML IV ×3 (03:06→18:20)
[2023-06-19] MEDS: IPRATROPIUM/ALBUTEROL SULFATE 3 ML AMPUL.NEB IH ×4 (05:00→20:41)
[2023-06-19 05:28] LABS: Basophils Percent Auto 0.4 % (0.2-2.0); Eosinophils Absolute Auto 0.2 10^3/uL (0.0-0.7); Hematocrit 24.2 % (42.0-54.0); Hemoglobin 8.2 g/dL (14.0-18.0); Immature Granulocytes Abs Auto 0.06 10^3/uL (0.00-0.03); Immature Granulocytes Pct Auto 0.8 % (0.0-0.5); Lymphocytes Absolute Auto 1.3 10^3/uL (1.2-3.8); Lymphocytes Percent Auto 17.7 % (20.5-60.0); Mean Corpuscular HGB Conc 33.9 g/dL (29.9-35.2); Mean Corpuscular Hemoglobin 33.7 pg (25.9-34.0); Mean Corpuscular Volume 99.6 fL (80.0-94.0); Mean Platelet Volume 10.5 fL (9.5-13.5); Monocytes Percent Auto 13.9 % (1.7-12.0); Neutrophils Absolute Auto 4.8 10^3/uL (1.4-6.5); Neutrophils Percent Auto 65.2 % (43.0-75.0); Platelet Count 104 10^3/uL (150-450); Red Blood Count 2.43 10^6/uL (4.70-6.10); White Blood Count 7.4 10^3/uL (4.0-11.0)
[2023-06-19] MEDS: POTASSIUM CHLORIDE 10 MEQ ER TABLET 20 MEQ PO ×4 (05:28→21:44)
[2023-06-19] MEDS: MAGNESIUM OXIDE 400 MG TABLET PO ×3 (05:28→21:44)
[2023-06-19] MEDS: PANTOPRAZOLE SODIUM 40 MG VIAL IV ×2 (05:29→17:40)
[2023-06-19] MEDS: LACTULOSE 10 GM/15 ML (237ML) SOLUTION 30 GM PO ×3 (05:29→21:55)
[2023-06-19 05:44] LABS: Amylase 26 U/L (25-115); Magnesium 1.8 mg/dL (1.8-2.4)
[2023-06-19 05:46] LABS: INR 1.56; Prothrombin Time 16.1 sec (9.0-11.6)
[2023-06-19 05:47] LABS: Ammonia 28 umol/L (11-32)
[2023-06-19 05:48] LABS: Alanine Aminotransferase 49 U/L (16-63); Albumin Globulin Ratio 0.9; Albumin Level 2.6 g/dL (3.4-5.0); Alkaline Phosphatase 69 U/L (46-116); Anion Gap 9.2; Aspartate Amino Transferase 45 U/L (15-37); BUN Creatinine Ratio 19.2; Calcium 7.4 mg/dL (8.5-10.1); Carbon Dioxide 31.9 mmol/L (21.0-32.0); Chloride 97 mmol/L (98-107); Estimated GFR (African America >60 (>=60); Estimated GFR (Non-African Ame >60 (>=60); Globulin 2.8 g/dL; Glucose 102 mg/dL (74-106); Potassium 3.1 mmol/L (3.5-5.1); Sodium 135 mmol/L (136-145); Total Protein 5.4 g/dL (6.4-8.2)
--- NOTE | 2023-06-19 08:21 | P.PN_ITS ---
Progress Note: Subjective Subjective Interval history: No new complaints this morning. breathing feels better since paracentesis Exam Constitutional Vital Signs, click to edit/add: Last Vital Signs Temp 98.7 F 06/19/23 05:25 Pulse 111 H 06/19/23 07:54 Resp 22 06/19/23 05:25 BP 107/60 06/19/23 05:25 Pulse Ox 95 06/19/23 05:25 O2 Del Method Nasal Cannula 06/19/23 05:25 O2 Flow Rate 2 06/19/23 05:25 Documenting provider has reviewed patient's vital signs: yes Common normals: no apparent distress HENMT Common normals: normocephalic and head/scalp atraumatic Chest Common normals: inspection of chest normal Respiratory Auscultation: breath sounds absent; no crackles and no wheezes Cardio Common normals: regular rate, regular rhythm and no murmurs GI Common normals: soft to palpation; tender (Minimal tenderness with no rebound tenderness) Progress Note: Objective Labs Labs: Short CBC 06/19/23 Range/Units 04:29 WBC 7.4 (4.0-11.0) 10^3/uL Hgb 8.2 L (14.0-18.0) g/dL Hct 24.2 L (42.0-54.0) % Plt Count 104 L (150-450) 10^3/uL BMP 06/19/23 04:29 Sodium 135 L Potassium 3.1 L Chloride 97 L Carbon Dioxide 31.9 BUN 15.0 Creatinine 0.78 Glucose 102 Calcium 7.4 L Liver Function 06/19/23 Range/Units 04:29 Total Bilirubin 2.0 H (0.2-1.0) mg/dL AST 45 H (15-37) U/L ALT 49 (16-63) U/L Alkaline Phosphatase 69 (46-116) U/L Albumin 2.6 L (3.4-5.0) g/dL Progress Note: A&P Assessment and Plan (1) AAT (uvyei-7-cyutjfunrko) deficiency: (2) Pleural effusion on right: (3) Acute hypotension: (4) Acute hypokalemia: (5) Weakness: (6) Chronic hepatic failure: (7) Ascites: (8) COPD (chronic obstructive pulmonary disease): (9) Dyspnea: (10) HTN (hypertension): Plan Sinus tachycardia, hypotension, hypoxia, leukocytosis, altered mental status secondary to hepatic encephalopathy, deteriorating liver failure, possible ascending cholangitis, possible LLL Pneumonia resulting in sepsis with multisy stem organ failure(Liver, lung, brain). cont with current meds Hyponatremia-stable, continue with current fluid but decrease rate since blood pressure is better History of liver failure with hyperammoniemia leading to AMS -pneumonia stable on current dosing. We will maintain. Liver function is elevated today. Thrombocytopenia-likely secondary to the above-monitor daily Hypocalcemia-supplement - better Right pleural effusion - secondary to transudate from ascites - holding off on thoracentesis due to risk with recent pneumothorax and possible current LLL pneumonia-repeat chest x-ray Coagulopathy due to liver failure and possible sepsis -worse today-we will start patient on vitamin K. inc to 10 meq today anemia of chronic Liver disease - down sig today - check occ blood - check cbc later today - concerned about blood loss from paracentesis Hypokalemia secondary to the above-worse today, potassium bolus and increase oral supplementation Severe protein Malnutrition with albumin of less than has needed albumin boluses in the past o make up for protein loss from paracentesis -repeat albumin bolus today. This is helped his blood pressure in the past with his paracentesis. Tachycardia-this is his normal at home he can runs in the low 100s. Is elevated at times still. With the severity of his altered mental status and the degree of his hyperammonemia and the deterioration in his overall condition with the leukocytosis and possible ascending cholangitis, sepsis, pneumonia, place patient on inpatient status. ?
[2023-06-19] MEDS: PHYTONADIONE (VIT K1) 10 MG/ML AMPUL PO (08:26)
[2023-06-19] MEDS: POTASSIUM CHLORIDE 40 MEQ in 0.9 % SODIUM CHLORIDE 250 ML 67.5 MEQ IV (08:26)
[2023-06-19] MEDS: CALCIUM CARBONATE 500 MG (200MG ELEMENTAL) TAB CHEW 1000 MG PO ×4 (08:26→21:44)
--- NOTE | 2023-06-19 08:28 | CM.NOTE ---
Rounding with Dr. Hernandez, patient had mother on speaker phone. Pt. voiced they removed 5 liters yesterday of fluid from his abdomen and c/o diarrhea continues. Dr. Hernandez voiced the plan is still to transfer the patient to [facility]. Nurse Amita also stated that [facility] is stating patient is top of the list and they still have no available beds. Continue to follow.
[2023-06-19] MEDS: CIPROFLOXACIN IN 5 % DEXTROSE 400 MG/200 ML PIGGYBACK 200 MG IV ×2 (09:22→21:44)
[2023-06-19] MEDS: PROSTAT 15 GM PROTEIN/100 CAL 30 ML LIQUID PACKET PO ×2 (09:22→20:54)
[2023-06-19] MEDS: CETIRIZINE HCL 10 MG TABLET PO (09:23)
[2023-06-19] MEDS: THIAMINE MONONITRATE (VIT B1) 100 MG TABLET PO (09:23)
[2023-06-19] MEDS: FLUDROCORTISONE ACETATE 0.1 MG TABLET PO ×2 (09:23→20:54)
[2023-06-19] MEDS: ZINC GLUCONATE 50 MG TABLET PO (09:23)
[2023-06-19] MEDS: ENSURE HP 237 ML LIQUID PO ×2 (09:23→20:55)
[2023-06-19] MEDS: FLUTICASONE PROPIONATE 50 MCG NASAL SPRAY 2 SPRAY NS (09:23)
[2023-06-19] MEDS: VITAMIN E (DL,TOCOPHERYL ACET) 180 MG (400 IU) CAPSULE PO (09:24)
[2023-06-19] MEDS: MONTELUKAST SODIUM 10 MG TABLET PO (09:24)
[2023-06-19] MEDS: L. ACIDOPHILUS/L.BULGARICUS 1 PACKET GRAN.PACK PO ×2 (09:24→20:54)
[2023-06-19] MEDS: CHOLECALCIFEROL (VITAMIN D3) 25 MCG/1,000 UNITS TABLET PO (09:24)
[2023-06-19] MEDS: CITALOPRAM HYDROBROMIDE 20 MG TABLET PO (09:24)
[2023-06-19] MEDS: CALCIUM POLYCARBOPHIL 625 MG TABLET 1250 MG PO (09:24)
[2023-06-19] MEDS: TORSEMIDE 20 MG TABLET 40 MG PO (09:32)
[2023-06-19] MEDS: BUMETANIDE 1 MG TABLET PO ×2 (09:32→20:54)
[2023-06-19] MEDS: SPIRONOLACTONE 25 MG TABLET 50 MG PO (09:32)
[2023-06-19] MEDS: KETOROLAC TROMETHAMINE 30 MG/ML VIAL IVP ×2 (10:23→18:20)
[2023-06-19 12:16] LABS: Basophils Percent Auto 0.4 % (0.2-2.0); Eosinophils Absolute Auto 0.1 10^3/uL (0.0-0.7); Eosinophils Percent Auto 1.5 % (0.9-7.0); Hemoglobin 7.3 g/dL (14.0-18.0); Immature Granulocytes Abs Auto 0.04 10^3/uL (0.00-0.03); Immature Granulocytes Pct Auto 0.6 % (0.0-0.5); Lymphocytes Percent Auto 15.1 % (20.5-60.0); Mean Corpuscular HGB Conc 33.6 g/dL (29.9-35.2); Mean Corpuscular Hemoglobin 33.8 pg (25.9-34.0); Mean Corpuscular Volume 100.5 fL (80.0-94.0); Mean Platelet Volume 10.3 fL (9.5-13.5); Monocytes Absolute Auto 0.9 10^3/uL (0.3-0.8); Monocytes Percent Auto 13.3 % (1.7-12.0); Neutrophils Absolute Auto 4.7 10^3/uL (1.4-6.5); Neutrophils Percent Auto 69.1 % (43.0-75.0); Platelet Count 89 10^3/uL (150-450); Red Blood Count 2.16 10^6/uL (4.70-6.10); Red Cell Distribution Width 16.3 % (11.0-15.0); White Blood Count 6.8 10^3/uL (4.0-11.0)
[2023-06-19 12:29] LABS: Hematocrit 21.7 % (42.0-54.0)
--- NOTE | 2023-06-19 16:14 | SWNOTE1 ---
Pt still awaiting a bed to transfer to [facility].
[2023-06-19] MEDS: LACTATED RINGER'S SOLUTION 1,000 ML 75 ML IV (16:43)
[2023-06-19 17:39] LABS: Occult Blood Positive
[2023-06-20] VITALS (112 sets, daily range): BP systolic 52–129; BP diastolic 32–89; PULSE 112–152; RESP 0–24; TEMP 36.4–37.1; O2SAT 93–944
[2023-06-20] MEDS: BENZONATATE 100 MG CAPSULE 200 MG PO ×2 (00:47→10:17)
[2023-06-20] MEDS: PIPERACILLIN SODIUM/TAZOBACTAM 3.375 GM in 0.9 % SODIUM CHLORIDE 50 ML IV ×2 (03:09→12:18)
[2023-06-20] MEDS: KETOROLAC TROMETHAMINE 30 MG/ML VIAL IVP ×3 (03:09→17:58)
[2023-06-20] MEDS: IPRATROPIUM/ALBUTEROL SULFATE 3 ML AMPUL.NEB IH ×2 (04:28→17:04)
[2023-06-20] MEDS: MAGNESIUM OXIDE 400 MG TABLET PO ×2 (05:04→18:29)
[2023-06-20] MEDS: PANTOPRAZOLE SODIUM 40 MG VIAL IV (05:04)
[2023-06-20] MEDS: POTASSIUM CHLORIDE 10 MEQ ER TABLET 20 MEQ PO ×3 (05:04→18:29)
[2023-06-20] MEDS: LACTULOSE 10 GM/15 ML (237ML) SOLUTION 30 GM PO (05:04)
[2023-06-20 05:06] LABS: Mean Corpuscular HGB Conc 33.5 g/dL (29.9-35.2); Mean Corpuscular Hemoglobin 33.6 pg (25.9-34.0); Mean Corpuscular Volume 100.4 fL (80.0-94.0); Mean Platelet Volume 10.3 fL (9.5-13.5); Platelet Count 97 10^3/uL (150-450); Red Blood Count 2.38 10^6/uL (4.70-6.10); White Blood Count 8.3 10^3/uL (4.0-11.0)
[2023-06-20 05:30] LABS: Ammonia 52 umol/L (11-32)
[2023-06-20 05:32] LABS: Magnesium 1.6 mg/dL (1.8-2.4)
[2023-06-20 05:35] LABS: INR 1.59; Prothrombin Time 16.4 sec (9.0-11.6)
[2023-06-20 05:39] LABS: Alanine Aminotransferase 40 U/L (16-63); Albumin Globulin Ratio 0.9; Albumin Level 2.5 g/dL (3.4-5.0); Alkaline Phosphatase 64 U/L (46-116); Anion Gap 7.5; Aspartate Amino Transferase 45 U/L (15-37); BUN Creatinine Ratio 20.5; Bilirubin Total 1.5 mg/dL (0.2-1.0); Calcium 7.6 mg/dL (8.5-10.1); Carbon Dioxide 28.2 mmol/L (21.0-32.0); Chloride 99 mmol/L (98-107); Estimated GFR (African America >60 (>=60); Estimated GFR (Non-African Ame >60 (>=60); Globulin 2.8 g/dL; Glucose 102 mg/dL (74-106); Potassium 3.7 mmol/L (3.5-5.1); Sodium 131 mmol/L (136-145); Total Protein 5.3 g/dL (6.4-8.2)
--- NOTE | 2023-06-20 05:49 | PC.NURSE ---
Critical Ammonia level 52. Increased from 28. Dr Hernandez notified via [place] [employer].
[2023-06-20] MEDS: CITALOPRAM HYDROBROMIDE 20 MG TABLET PO (08:21)
[2023-06-20] MEDS: PROSTAT 15 GM PROTEIN/100 CAL 30 ML LIQUID PACKET PO (08:21)
[2023-06-20] MEDS: VITAMIN E (DL,TOCOPHERYL ACET) 180 MG (400 IU) CAPSULE PO (08:21)
[2023-06-20] MEDS: THIAMINE MONONITRATE (VIT B1) 100 MG TABLET PO (08:21)
[2023-06-20] MEDS: SPIRONOLACTONE 25 MG TABLET 50 MG PO (08:21)
[2023-06-20] MEDS: CHOLECALCIFEROL (VITAMIN D3) 25 MCG/1,000 UNITS TABLET PO (08:21)
[2023-06-20] MEDS: CALCIUM CARBONATE 500 MG (200MG ELEMENTAL) TAB CHEW 1000 MG PO ×3 (08:21→17:57)
[2023-06-20] MEDS: CETIRIZINE HCL 10 MG TABLET PO (08:21)
[2023-06-20] MEDS: CALCIUM POLYCARBOPHIL 625 MG TABLET 1250 MG PO (08:21)
[2023-06-20] MEDS: TORSEMIDE 20 MG TABLET 40 MG PO (08:21)
[2023-06-20] MEDS: FLUDROCORTISONE ACETATE 0.1 MG TABLET PO (08:21)
[2023-06-20] MEDS: L. ACIDOPHILUS/L.BULGARICUS 1 PACKET GRAN.PACK PO (08:21)
[2023-06-20] MEDS: ZINC GLUCONATE 50 MG TABLET PO (08:21)
[2023-06-20] MEDS: MONTELUKAST SODIUM 10 MG TABLET PO (08:21)
[2023-06-20] MEDS: BUMETANIDE 1 MG TABLET PO (08:23)
[2023-06-20] MEDS: FLUTICASONE PROPIONATE 50 MCG NASAL SPRAY 2 SPRAY NS (08:24)
[2023-06-20] MEDS: ENSURE HP 237 ML LIQUID PO (08:29)
[2023-06-20 08:39] LABS: Red Cell Distribution Width 17.3 % (11.0-15.0)
[2023-06-20 08:40] LABS: Hematocrit 23.9 % (42.0-54.0)
--- NOTE | 2023-06-20 08:45 | CM.NOTE ---
Rounds made with Dr. Hernandez, discussed plan of care with pt and his mother. Dr. Hernandez will contact [facility] again today for bed status.
[2023-06-20 09:09] LABS: Adenovirus F 40/41 NOT DETECTED (NOT DETECTE); Astrovirus NOT DETECTED (NOT DETECTE); Campylobacter NOT DETECTED (NOT DETECTE); Cryptosporidium NOT DETECTED (NOT DETECTE); Cyclospora cayetanensis NOT DETECTED (NOT DETECTE); Entamoeba histolytica NOT DETECTED (NOT DETECTE); Enteroaggregative E.coli NOT DETECTED (NOT DETECTE); Enteropathogenic E.coli NOT DETECTED (NOT DETECTE); Enterotoxigenic E. coli NOT DETECTED (NOT DETECTE); Giardia lamblia NOT DETECTED (NOT DETECTE); Norovirus GI/GII NOT DETECTED (NOT DETECTE); Plesiomonas shigelloides NOT DETECTED (NOT DETECTE); Rotavirus A NOT DETECTED (NOT DETECTE); Salmonella NOT DETECTED (NOT DETECTE); Sapovirus NOT DETECTED (NOT DETECTE); Shiga-like toxin-producing E.C NOT DETECTED (NOT DETECTE); Shigella/Enteroinvasive E.coli NOT DETECTED (NOT DETECTE); Vibrio NOT DETECTED (NOT DETECTE); Vibrio cholerae NOT DETECTED (NOT DETECTE); Yersinia enterocolitica NOT DETECTED (NOT DETECTE)
[2023-06-20 09:38] LABS: Anisocytosis 1+; Eosinophils Absolute Manual 0.24 10^3/uL (0.00-0.70); Lymphocytes Absolute Manual 0.99 10^3/uL (1.20-3.80); Macrocytosis 1+; Monocytes Absolute Manual 0.74 10^3/uL (0.30-0.80)
[2023-06-20 10:56] LABS: C. Difficile PCR NEGATIVE (NEGATIVE)
[2023-06-20] MEDS: CIPROFLOXACIN IN 5 % DEXTROSE 400 MG/200 ML PIGGYBACK 200 MG IV (11:00)
[2023-06-20] MEDS: PHYTONADIONE (VIT K1) 10 MG/ML AMPUL PO (12:18)
[2023-06-20] MEDS: ONDANSETRON PF 4 MG/2 ML VIAL IV ×2 (12:18→20:10)
[2023-06-20] MEDS: 0.9 % SODIUM CHLORIDE 1,000 ML 1000 ML IV ×2 (14:20→15:20)
[2023-06-20 14:53] LABS: Mean Corpuscular HGB Conc 32.6 g/dL (29.9-35.2); Mean Corpuscular Hemoglobin 34.3 pg (25.9-34.0); Mean Corpuscular Volume 105.2 fL (80.0-94.0); Mean Platelet Volume 10.6 fL (9.5-13.5); Platelet Count 169 10^3/uL (150-450); Red Blood Count 1.72 10^6/uL (4.70-6.10); Red Cell Distribution Width 16.6 % (11.0-15.0); White Blood Count 19.1 10^3/uL (4.0-11.0)
[2023-06-20 14:55] LABS: Hematocrit 18.1 % (42.0-54.0); Hemoglobin 5.9 g/dL (14.0-18.0)
[2023-06-20] MEDS: NOREPINEPHRINE BITARTRATE 4 MG in DEXTROSE 5 % IN WATER 250 ML 30.48 MG IV ×3 (15:44→17:55)
[2023-06-20] MEDS: OCTREOTIDE ACETATE 500 MCG in 0.9 % SODIUM CHLORIDE 250 ML 25 MCG IV (16:08)
[2023-06-20] MEDS: PANTOPRAZOLE SODIUM 80 MG in 0.9 % SODIUM CHLORIDE 100 ML 10 MG IV (16:08)
--- NOTE | 2023-06-20 19:26 | PC.NURSE ---
New bag of Levophed hung at 1915 @ 50 mcg/min. Error message received when trying to document new bag.
--- NOTE | 2023-06-20 19:39 | PC.NURSE ---
Patient received 2 units of PRBCs, with no transfusion reactions. Vital signs documented through capture. Patient is currently on 50 mcg/min of levophed, which required rapid titration to maintain MAP greater than 65. Dr. Hernandez was updated regarding patient condition and called [facility] to update regarding change in patient status. Attempting to get patient transferred to [facility] sooner for possible liver transplant at this time. Patient was monitored and family was informed regarding updates given to physician and facilities. Will continue to monitor patient.
[2023-06-20 19:40] LABS: Hematocrit 24.4 % (42.0-54.0); Hemoglobin 8.2 g/dL (14.0-18.0); Mean Corpuscular HGB Conc 33.6 g/dL (29.9-35.2); Mean Corpuscular Hemoglobin 32.7 pg (25.9-34.0); Mean Corpuscular Volume 97.2 fL (80.0-94.0); Mean Platelet Volume 9.9 fL (9.5-13.5); Platelet Count 223 10^3/uL (150-450); Red Blood Count 2.51 10^6/uL (4.70-6.10); Red Cell Distribution Width 17.4 % (11.0-15.0); White Blood Count 28.4 10^3/uL (4.0-11.0)
[2023-06-20] MEDS: DOPAMINE HCL IN DEXTROSE 5 % 400 MG/250 ML PLAST..BAG 11.371 MG IV (19:54)
--- NOTE | 2023-06-20 20:35 | P.DS_ITS ---
DS: Providers Provider Date of admission: 06/16/23 14:47 Primary care physician: Cecil Hernandez MD Consults: 06/16/23 14:59 Physical Therapy Eval and Treat Routine Reason for consultation: strength Has provider been notified: No DS: Diagnosis Discharge Diagnosis (1) AAT (oopza-6-gvkidaisxaf) deficiency: (2) Pleural effusion on right: (3) Acute hypotension: (4) Acute hypokalemia: (5) Weakness: (6) Chronic hepatic failure: (7) Ascites: (8) COPD (chronic obstructive pulmonary disease): (9) Dyspnea: (10) HTN (hypertension): Plan Sinus tachycardia, hypotension, hypoxia, leukocytosis, altered mental status secondary to hepatic encephalopathy, deteriorating liver failure, possible ascending cholangitis, possible LLL Pneumonia resulting in sepsis with multisystem organ failure(Liver, lung, brain). Hyponatremia- History of liver failure with hyperammoniemia leading to AMS -pneumonia stable on current dosing Thrombocytopenia Hypocalcemia Right pleural effusion - secondary to transudate from ascites - Coagulopathy due to liver failure and possible sepsis - anemia of chronic Liver disease - Hypokalemia secondary to the above Severe protein Malnutrition with albumin of less than has needed albumin boluses in the past o make up for protein loss from paracentesis is. Tachycardia Acute blood loss anemia-uncertain source, resulting in severe hypotension requiring vasopressor medications. Levophed and dopamine. DS: Summary Hospital Course Hospital Course: Patient was admitted with hypotension, leukocytosis, elevated liver function test, possible pneumonia-severe sepsis noted placed on IV antibiotics and his white blood Cell count did improve over the first couple days. His ammonia was difficult to manage but was improved the day prior to discharge but elevated on the day of discharge. Also significant gradual anemia throughout the hospital stay. However in the last day of his admission he had a significant drop of 2- 1/2 g acutely. With no hemoptysis no hematochezia is likely related to intra- abdominal bleeding. His paracentesis that was 2 days prior. He does have a coagulopathy they were attempting to correct with vitamin K. With his acute bleed and hypotension patient was transferred back to the intensive care unit, placed on Levophed and at the time of transfer was up to 50 mcg/min. Low-dose dopamine was added for pressure support. His blood pressure was improving after his third and fourth units of blood and FFP. Arrangements were made earlier in the week for transfer to [facility] however no bed was available alternate arrangements were made for [facility]. When helicopter arrived, [facility] did call and stated they had a bed. Because he is established to [facility] it was elected to continue to pursue that option instead of [facility]. I will follow patient at discharge. Status at Discharge Cognitive/behavioral status at discharge: Critical on 2 vasopressor medications Time Spent with Patient Time attestation: Total time spent providing and/or coordinating discharge services: Exam Constitutional Vital Signs, click to edit/add: Last Vital Signs Temp 98.4 F 06/20/23 20:48 Pulse 142 H 06/20/23 22:00 Resp 1 L 06/20/23 21:35 BP 105/54 06/20/23 21:40 Pulse Ox 93 L 06/20/23 22:00 O2 Del Method Nasal Cannula 06/20/23 21:00 O2 Flow Rate 2 06/20/23 21:00 Documenting provider has reviewed patient's vital signs: yes Common normals: no apparent distress HENMT Common normals: normocephalic and head/scalp atraumatic Chest Common normals: inspection of chest normal Respiratory Auscultation: breath sounds absent; no crackles and no wheezes Cardio Common normals: regular rate, regular rhythm and no murmurs GI Common normals: soft to palpation; tender (Minimal tenderness with no rebound tenderness) DS: Data Data Completed and Pending Labs on day of discharge: Labs from last 24 hours 06/20/23 06/20/23 19:35 15:16 WBC 28.4 H RBC 2.51 L Hgb 8.2 L Hct 24.4 L MCV 97.2 H MCH 32.7 MCHC 33.6 RDW 17.4 H Plt Count 223 MPV 9.9 Blood Type A Negative Antibody Screen Negative Crossmatch See Detail Preliminary micro results at discharge 06/16/23 17:07 - Preliminary Blood NO GROWTH AT 36-48 HOURS. FINAL TO FOLLOW. 06/16/23 16:20 Blood Culture Result 1 - Preliminary Blood NO GROWTH AT 36-48 HOURS. FINAL TO FOLLOW. Discharge Plan Discharge Disposition: [facility] Condition: Critical Discharge Date/Time: 06/20/23 22:35 Discharge location: [facility]
--- NOTE | 2023-06-20 23:08 | PC.NURSE ---
Levophed hung at 2114. Error message on OCT continues as nurse tries to scan bag.
--- NOTE | 2023-06-20 23:10 | PC.NURSE ---
Patient transferred out via life flight at 2235. Mom at bedside at time of transfer. Pt meds and valuables with patient on aircraft. VSS. Report called to [facility]. Pt going to room G50 Bed 3.
== END 2023-06-20 22:35 | disposition short-term general hospital (02) | DRG 871 ==
LOC: ER 13:45 → MS 15:06 → ICU 06-20 15:35
PROVIDERS: Nurse Practitioner; Radiology Diagnostic Radiology; Admitting Provider Family Medicine; Emergency Provider Emergency Medicine; PCP Family Medicine; Visit Provider Family Medicine
DX: A41.9 Sepsis, unspecified organism (principal); E43 Unspecified severe protein-calorie malnutrition; J18.9 Pneumonia, unspecified organism; K83.09 Other cholangitis; E72.20 Disorder of urea cycle metabolism, unspecified; J90 Pleural effusion, not elsewhere classified; R18.8 Other ascites; F84.0 Autistic disorder; Z68.1 Body mass index [BMI] 19.9 or less, adult; D68.4 Acquired coagulation factor deficiency; E87.1 Hypo-osmolality and hyponatremia; R65.20 Severe sepsis without septic shock; K76.82 Hepatic encephalopathy; K72.10 Chronic hepatic failure without coma; D69.6 Thrombocytopenia, unspecified; E83.51 Hypocalcemia; E87.6 Hypokalemia; K76.9 Liver disease, unspecified; D63.8 Anemia in other chronic diseases classified elsewhere; E88.01 Alpha-1-antitrypsin deficiency; J44.9 Chronic obstructive pulmonary disease, unspecified; I10 Essential (primary) hypertension; Z76.82 Awaiting organ transplant status; Z20.822 Contact with and (suspected) exposure to COVID-19; Z79.899 Other long term (current) drug therapy; Z90.49 Acquired absence of other specified parts of digestive tract; Z98.890 Other specified postprocedural states; Z82.49 Family history of ischemic heart disease and other diseases of the circulatory system; Z83.3 Family history of diabetes mellitus; Z82.3 Family history of stroke; Z80.9 Family history of malignant neoplasm, unspecified
CPT/HCPCS: 36415; 36430; 36569; 36592; 49083; 71045; 71046; 76705; 80053; 80320; 82140; 82150; 82800; 83605; 83690; 83735; 84443; 84484; 85025; 85027; 85610; 86850; 86900; 86901; 86927; 87040; 87070; 87493; 87507; 87635; 87811; 93005; 94640; 94667; 94668; 94761; 96361; 96365; 96366; 96367; 96368; 96372; 96375; 96376; 99285; C1887; G0328; J1170; J3480; P9016; P9017; P9047